=== PATIENT | male | born 1955 | race African-American/Black ===

== ENCOUNTER 2022-12-16 01:53 | Inpatient (IN) | payer OTHER ==
[2022-12-16 04:20] LABS: BASO % 0.6 % (0-2.0); EOS % 0.1 % (0-4.5); HEMATOCRIT 24.1 % (35.4-49); HEMOGLOBIN 8.1 GM/dL (11.7-16.9); LYMPH % 8.3 % (8-40); MCHC 33.5 g/dl (32.0-35.9); MEAN CELL VOLUME 89.6 fl (80-96); MEAN PLT VOLUME 6.8 fl (7.5-11.1); MONO % 11.3 % (3.8-10.2); NEUT % 79.7 % (42.8-82.8); PLATELET COUNT 425 10^3/uL (134-434); RBC 2.69 M/mm3 (4.00-5.60); RDW 16.7 % (11.9-15.9); WHITE BLOOD COUNT 15.9 K/mm3 (4.0-10.0)
[2022-12-16 04:35] LABS: INR 1.07 (0.83-1.09); PROTHROMBIN TIME (PATIENT) 12.4 SEC (9.7-13.0)
[2022-12-16 04:37] LABS: ACTIVATED PTT 27.4 SECONDS (25.2-36.5)
[2022-12-16 04:52] LABS: CHLORIDE 96 mmol/L (98-107); SODIUM 136 mmol/L (136-145)
[2022-12-16 04:54] LABS: CALCIUM 7.9 mg/dL (8.5-10.1)
[2022-12-16 04:55] LABS: ARTERIAL BLD GAS O2 SATURATION 97.6 % (95-98); ARTERIAL BLOOD GAS PO2 91.1 mmHg (80-100); ARTERIAL BLOOD GAS pH 7.517 (7.350-7.450)
[2022-12-16 04:55] LABS: ALBUMIN 1.8 g/dl (3.4-5.0); BLOOD UREA NITROGEN 17.2 mg/dL (7-18); CO2 32 mmol/L (21-32); GLUCOSE,RANDOM 114 mg/dL (74-106)
[2022-12-16 04:58] LABS: CREATININE 3.6 mg/dL (0.55-1.3); SGOT/AST 22 U/L (15-37); SGPT/ALT 13 U/L (13-61)
[2022-12-16 04:59] LABS: BILIRUBIN,TOTAL 0.4 mg/dL (0.2-1)
[2022-12-16 05:00] LABS: TOT PROT 6.8 g/dl (6.4-8.2)
[2022-12-16 05:01] LABS: ALK PHOS 70 U/L (45-117)
[2022-12-16 05:04] LABS: ANION GAP 8 MMOL/L (8-16); POTASSIUM 2.8 mmol/L (3.5-5.1)
[2022-12-16 07:50] LABS: CHLORIDE 98 mmol/L (98-107); SODIUM 137 mmol/L (136-145)
[2022-12-16 07:51] LABS: ARTERIAL BLD GAS O2 SATURATION 97.5 % (95-98); ARTERIAL BLOOD GAS BASE EXCESS 3.6 mmol/L (-2-2); ARTERIAL BLOOD GAS PO2 88.9 mmHg (80-100); ARTERIAL BLOOD GAS pH 7.501 (7.350-7.450)
[2022-12-16 07:51] LABS: CALCIUM 7.7 mg/dL (8.5-10.1)
[2022-12-16 07:52] LABS: BLOOD UREA NITROGEN 16.8 mg/dL (7-18); CO2 34 mmol/L (21-32); GLUCOSE,RANDOM 99 mg/dL (74-106)
[2022-12-16 07:55] LABS: CREATININE 3.6 mg/dL (0.55-1.3)
[2022-12-16 07:56] LABS: ANION GAP 5 MMOL/L (8-16); POTASSIUM 2.8 mmol/L (3.5-5.1)
[2022-12-16] MEDS ORDERED: POTASSIUM CHLORIDE ORAL LIQUID 20 MEQ/15 ML PO ONE (10:18)
[2022-12-16] MEDS ORDERED: MAGNESIUM SULF 50% (8.12 MEQ/2 ML-1 GM VIAL) IVPB ONE (10:18)
[2022-12-16] MEDS ORDERED: SODIUM CHLORIDE 250 ML IV PRN (10:28)
[2022-12-16] MEDS ORDERED: POTASSIUM CHLORIDE ORAL LIQUID 20 MEQ/15 ML ONE (10:45)
[2022-12-16] MEDS ORDERED: MAGNESIUM 1GM/D5W - 1 GM/100 ML IVPB IVPB ONE (10:45)
[2022-12-16 11:36] LABS: MAGNESIUM 2.1 mg/dL (1.8-2.4)
[2022-12-16 11:39] LABS: PHOSPHOROUS 2.1 mg/dL (2.5-4.9)
[2022-12-16] MEDS ORDERED: BISACODYL 10 MG SUPP.RECT RC PRN (13:37)
[2022-12-16] MEDS ORDERED: HEPARIN NA (PORCINE) 5,000 UNITS/ML 1ML VIAL ONE ×2 (13:40→22:45)
[2022-12-16] MEDS: HEPARIN NA (PORCINE) 5,000 UNITS/ML 1ML VIAL SQ SCH ×2 (13:47→23:44)
[2022-12-16] MEDS ORDERED: POLYETHYLENE GLYCOL (HEALTHYLAX) 3350 17 GM PACKET ONE (14:33)
[2022-12-16] MEDS ORDERED: MIDODRINE HCL 5 MG TABLET ONE ×2 (14:33→17:52)
[2022-12-16] MEDS: MIDODRINE HCL 5 MG TABLET PO SCH ×2 (14:43→18:04)
[2022-12-16] MEDS: POLYETHYLENE GLYCOL (HEALTHYLAX) 3350 17 GM PACKET PO SCH (14:43)
[2022-12-16] MEDS: AMINO ACIDS/PROTEIN HYDROLYS 30 ML LIQUID.PKT PO SCH (17:55)
[2022-12-16] MEDS: INSULIN SLIDING SCALE (NOVOLOG) 1 VIAL SQ SCH ×2 (17:55→23:44)
[2022-12-16] MEDS: CALCIUM ACETATE 667 MG CAPSULE (FP) PO SCH (17:55)
[2022-12-16] MEDS: VITAMIN B COMP W-C 1 EA TABLET (NEPHRO-VITE) PO SCH (17:55)
[2022-12-16] MEDS ORDERED: DIVALPROEX SODIUM 250 MG TABLET E.C. ONE (22:45)
[2022-12-16] MEDS: VALPROIC ACID 250 MG CAPSULE PO SCH (23:44)
[2022-12-17] MEDS: HEPARIN NA (PORCINE) 5,000 UNITS/ML 1ML VIAL SQ SCH ×3 (07:09→21:13)
[2022-12-17] MEDS: INSULIN SLIDING SCALE (NOVOLOG) 1 VIAL SQ SCH ×4 (08:08→21:14)
[2022-12-17 08:29] LABS: BASO % 0.7 % (0-2.0); EOS % 0.3 % (0-4.5); HEMATOCRIT 23.1 % (35.4-49); HEMOGLOBIN 7.3 GM/dL (11.7-16.9); LYMPH % 9.8 % (8-40); MCH 29.2 pg (25.7-33.7); MCHC 31.5 g/dl (32.0-35.9); MEAN CELL VOLUME 92.6 fl (80-96); MEAN PLT VOLUME 7.6 fl (7.5-11.1); MONO % 8.3 % (3.8-10.2); NEUT % 80.9 % (42.8-82.8); PLATELET COUNT 432 10^3/uL (134-434); RBC 2.49 M/mm3 (4.00-5.60); RDW 16.1 % (11.9-15.9); WHITE BLOOD COUNT 17.7 K/mm3 (4.0-10.0)
[2022-12-17 08:46] LABS: POTASSIUM 4.1 mmol/L (3.5-5.1)
[2022-12-17 08:51] LABS: ALBUMIN 1.7 g/dl (3.4-5.0); MAGNESIUM 2.4 mg/dL (1.8-2.4)
[2022-12-17 08:53] LABS: PHOSPHOROUS 2.6 mg/dL (2.5-4.9)
[2022-12-17 08:54] LABS: CREATININE 4.7 mg/dL (0.55-1.3)
[2022-12-17 08:55] LABS: BILIRUBIN,TOTAL 0.5 mg/dL (0.2-1); TOT PROT 6.4 g/dl (6.4-8.2)
[2022-12-17] MEDS: FERROUS SO4 325 MG TABLET (FP) PO SCH (09:51)
[2022-12-17] MEDS: FAMOTIDINE 10 MG TABLET PO SCH (09:52)
[2022-12-17] MEDS: POLYETHYLENE GLYCOL (HEALTHYLAX) 3350 17 GM PACKET PO SCH (09:52)
[2022-12-17] MEDS: MIDODRINE HCL 5 MG TABLET PO SCH ×3 (09:52→17:19)
[2022-12-17] MEDS: AMINO ACIDS/PROTEIN HYDROLYS 30 ML LIQUID.PKT PO SCH ×2 (09:52→16:40)
[2022-12-17] MEDS: CALCIUM ACETATE 667 MG CAPSULE (FP) PO SCH ×4 (09:52→16:40)
[2022-12-17] MEDS: VALPROIC ACID 250 MG CAPSULE PO SCH ×2 (09:52→21:14)
[2022-12-17] MEDS: SERTRALINE HCL 50 MG TABLET (FP) PO SCH (09:52)
[2022-12-17] MEDS: VITAMIN B COMP W-C 1 EA TABLET (NEPHRO-VITE) PO SCH (09:52)
[2022-12-17] MEDS: CLOPIDOGREL BISULFATE 75 MG TABLET (FP) PO SCH (09:52)
[2022-12-17] MEDS ORDERED: CLOPIDOGREL BISULFATE 75 MG TABLET (FP) ONE (09:55)
[2022-12-17] MEDS ORDERED: FAMOTIDINE 10 MG TABLET ONE (09:55)
[2022-12-17] MEDS ORDERED: MIDODRINE HCL 5 MG TABLET ONE (09:56)
[2022-12-17] MEDS ORDERED: SERTRALINE HCL 50 MG TABLET (FP) ONE (09:56)
[2022-12-17] MEDS ORDERED: PIPERACILLIN/TAZOB 2.25 GM 2.25 GM in DEXTROSE 5%-WATER - 50 ML IVPB SCH ×2 (12:15→12:30)
[2022-12-17] MEDS ORDERED: PIPERACILLIN/TAZOB 3.375 GM 3.375 GM in DEXTROSE 5%-WATER - 50 ML IVPB SCH (12:15)
[2022-12-17] MEDS: COLLAGENASE CLOSTRIDIUM HIST. 30 GRAMS TUBE TP SCH (12:46)
[2022-12-17] MEDS ORDERED: EPOETIN ALFA-EPBX 10,000 UNIT/ML VIAL IVPUSH ONE (14:30)
[2022-12-17 15:57] LABS: HEPATITIS B SURFACE AG MATERN NON-REACTIVE (NONREACTIVE)
[2022-12-17] MEDS: PIPERACILLIN/TAZOB 2.25 GM 2.25 GM in DEXTROSE 5%-WATER - 50 ML IVPB SCH ×2 (16:26→17:16)
[2022-12-18] MEDS: PIPERACILLIN/TAZOB 2.25 GM 2.25 GM in DEXTROSE 5%-WATER - 50 ML IVPB SCH ×3 (02:06→17:41)
[2022-12-18] MEDS: HEPARIN NA (PORCINE) 5,000 UNITS/ML 1ML VIAL SQ SCH ×3 (05:14→22:09)
[2022-12-18] MEDS: FERROUS SO4 325 MG TABLET (FP) PO SCH ×2 (05:33→06:02)
[2022-12-18] MEDS: INSULIN SLIDING SCALE (NOVOLOG) 1 VIAL SQ SCH ×4 (06:02→22:08)
[2022-12-18] MEDS: VALPROIC ACID 250 MG CAPSULE PO SCH ×2 (09:43→22:13)
[2022-12-18] MEDS: MIDODRINE HCL 5 MG TABLET PO SCH ×3 (09:43→17:40)
[2022-12-18] MEDS: VITAMIN B COMP W-C 1 EA TABLET (NEPHRO-VITE) PO SCH (09:43)
[2022-12-18] MEDS: CLOPIDOGREL BISULFATE 75 MG TABLET (FP) PO SCH (09:43)
[2022-12-18] MEDS: FAMOTIDINE 10 MG TABLET PO SCH (09:43)
[2022-12-18] MEDS: AMINO ACIDS/PROTEIN HYDROLYS 30 ML LIQUID.PKT PO SCH ×2 (09:43→17:41)
[2022-12-18] MEDS: POLYETHYLENE GLYCOL (HEALTHYLAX) 3350 17 GM PACKET PO SCH (09:43)
[2022-12-18] MEDS: CALCIUM ACETATE 667 MG CAPSULE (FP) PO SCH ×3 (09:43→17:41)
[2022-12-18] MEDS: SERTRALINE HCL 50 MG TABLET (FP) PO SCH (09:44)
[2022-12-18] MEDS: COLLAGENASE CLOSTRIDIUM HIST. 30 GRAMS TUBE TP SCH (09:44)
[2022-12-18 13:57] VITALS: BMI 21.5
[2022-12-18] MEDS ORDERED: INSULIN (NOVOLOG) ASPART 100 UNITS/ML 10ML VIAL ONE (17:53)
[2022-12-19] MEDS: PIPERACILLIN/TAZOB 2.25 GM 2.25 GM in DEXTROSE 5%-WATER - 50 ML IVPB SCH ×5 (02:36→21:00)
[2022-12-19] MEDS: INSULIN SLIDING SCALE (NOVOLOG) 1 VIAL SQ SCH ×4 (06:03→21:00)
[2022-12-19] MEDS: FERROUS SO4 325 MG TABLET (FP) PO SCH (06:04)
[2022-12-19] MEDS: HEPARIN NA (PORCINE) 5,000 UNITS/ML 1ML VIAL SQ SCH ×3 (06:04→21:00)
[2022-12-19] MEDS ORDERED: SODIUM CHLORIDE 250 ML IV PRN (10:42)
[2022-12-19] MEDS: MIDODRINE HCL 5 MG TABLET PO SCH ×5 (11:18→18:53)
[2022-12-19 11:19] LABS: BASO % 0.9 % (0-2.0); HEMATOCRIT 21.9 % (35.4-49); LYMPH % 10.6 % (8-40); MCH 29.5 pg (25.7-33.7); MCHC 32.1 g/dl (32.0-35.9); MEAN PLT VOLUME 6.7 fl (7.5-11.1); MONO % 10.2 % (3.8-10.2); NEUT % 77.3 % (42.8-82.8); PLATELET COUNT 367 10^3/uL (134-434); RBC 2.38 M/mm3 (4.00-5.60); RDW 16.1 % (11.9-15.9); WHITE BLOOD COUNT 15.7 K/mm3 (4.0-10.0)
[2022-12-19] MEDS: SERTRALINE HCL 50 MG TABLET (FP) PO SCH ×2 (11:19→11:51)
[2022-12-19] MEDS: CLOPIDOGREL BISULFATE 75 MG TABLET (FP) PO SCH ×2 (11:19→11:50)
[2022-12-19] MEDS: POLYETHYLENE GLYCOL (HEALTHYLAX) 3350 17 GM PACKET PO SCH (11:20)
[2022-12-19] MEDS: VITAMIN B COMP W-C 1 EA TABLET (NEPHRO-VITE) PO SCH (11:20)
[2022-12-19] MEDS: AMINO ACIDS/PROTEIN HYDROLYS 30 ML LIQUID.PKT PO SCH ×2 (11:21→17:04)
[2022-12-19] MEDS: VALPROIC ACID 250 MG CAPSULE PO SCH ×2 (11:21→21:00)
[2022-12-19] MEDS: FAMOTIDINE 10 MG TABLET PO SCH (11:21)
[2022-12-19] MEDS: CALCIUM ACETATE 667 MG CAPSULE (FP) PO SCH ×3 (11:21→17:05)
[2022-12-19] MEDS: COLLAGENASE CLOSTRIDIUM HIST. 30 GRAMS TUBE TP SCH (11:22)
[2022-12-19 11:37] LABS: POTASSIUM 3.7 mmol/L (3.5-5.1)
[2022-12-19 11:39] LABS: ALBUMIN 1.4 g/dl (3.4-5.0); BLOOD UREA NITROGEN 35.7 mg/dL (7-18); CALCIUM 8.2 mg/dL (8.5-10.1)
[2022-12-19 11:42] LABS: CREATININE 5.7 mg/dL (0.55-1.3)
[2022-12-19 11:44] LABS: BILIRUBIN,TOTAL 0.6 mg/dL (0.2-1); TOT PROT 6.1 g/dl (6.4-8.2)
[2022-12-19] MEDS ORDERED: oxyCODONE HCL 5 MG TABLET PO ONE (18:40)
[2022-12-20] MEDS: INSULIN SLIDING SCALE (NOVOLOG) 1 VIAL SQ SCH ×4 (06:37→21:19)
[2022-12-20] MEDS: HEPARIN NA (PORCINE) 5,000 UNITS/ML 1ML VIAL SQ SCH ×3 (06:37→21:01)
[2022-12-20] MEDS ORDERED: BISACODYL 10 MG SUPP.RECT RC PRN (07:04)
[2022-12-20] MEDS: FERROUS SO4 325 MG TABLET (FP) PO SCH (07:04)
[2022-12-20 10:30] LABS: BASO % 1.3 % (0-2.0); EOS % 1.2 % (0-4.5); HEMATOCRIT 21.7 % (35.4-49); HEMOGLOBIN 7.2 GM/dL (11.7-16.9); LYMPH % 10.8 % (8-40); MCH 30.1 pg (25.7-33.7); MCHC 33.3 g/dl (32.0-35.9); MEAN CELL VOLUME 90.4 fl (80-96); MEAN PLT VOLUME 7.1 fl (7.5-11.1); MONO % 10.7 % (3.8-10.2); PLATELET COUNT 386 10^3/uL (134-434); RDW 15.8 % (11.9-15.9); WHITE BLOOD COUNT 17.9 K/mm3 (4.0-10.0)
[2022-12-20 10:52] LABS: POTASSIUM 3.9 mmol/L (3.5-5.1)
[2022-12-20 10:53] LABS: CALCIUM 8.1 mg/dL (8.5-10.1)
[2022-12-20 10:54] LABS: ALBUMIN 1.4 g/dl (3.4-5.0); BLOOD UREA NITROGEN 40.6 mg/dL (7-18)
[2022-12-20 10:57] LABS: CREATININE 6.6 mg/dL (0.55-1.3)
[2022-12-20 10:59] LABS: BILIRUBIN,TOTAL 0.4 mg/dL (0.2-1); TOT PROT 6.2 g/dl (6.4-8.2)
[2022-12-20] MEDS: MIDODRINE HCL 5 MG TABLET PO SCH ×3 (11:57→18:11)
[2022-12-20] MEDS: AMINO ACIDS/PROTEIN HYDROLYS 30 ML LIQUID.PKT PO SCH ×2 (12:02→18:11)
[2022-12-20] MEDS: CALCIUM ACETATE 667 MG CAPSULE (FP) PO SCH ×3 (12:02→18:11)
[2022-12-20] MEDS: SERTRALINE HCL 50 MG TABLET (FP) PO SCH (12:03)
[2022-12-20] MEDS: FAMOTIDINE 10 MG TABLET PO SCH (12:03)
[2022-12-20] MEDS: VITAMIN B COMP W-C 1 EA TABLET (NEPHRO-VITE) PO SCH (12:03)
[2022-12-20] MEDS: COLLAGENASE CLOSTRIDIUM HIST. 30 GRAMS TUBE TP SCH (12:06)
[2022-12-20] MEDS: PIPERACILLIN/TAZOB 2.25 GM 2.25 GM in DEXTROSE 5%-WATER - 50 ML IVPB SCH (12:06)
[2022-12-20] MEDS: CLOPIDOGREL BISULFATE 75 MG TABLET (FP) PO SCH (12:07)
[2022-12-20] MEDS: VALPROIC ACID 250 MG CAPSULE PO SCH ×2 (12:07→21:12)
[2022-12-20] MEDS: POLYETHYLENE GLYCOL (HEALTHYLAX) 3350 17 GM PACKET PO SCH (12:07)
[2022-12-20] MEDS ORDERED: AMOX TR/POT CLAV 500MG/125MG TABLETS (FP) PO SCH (17:30)
[2022-12-21] MEDS: HEPARIN NA (PORCINE) 5,000 UNITS/ML 1ML VIAL SQ SCH ×2 (05:24→13:53)
[2022-12-21] MEDS: INSULIN SLIDING SCALE (NOVOLOG) 1 VIAL SQ SCH ×2 (06:48→12:15)
[2022-12-21] MEDS ORDERED: FERROUS SO4 325 MG TABLET (FP) PO SCH (07:00)
[2022-12-21] MEDS ORDERED: oxyCODONE HCL 5 MG TABLET PO ONE (08:40)
[2022-12-21] MEDS: CALCIUM ACETATE 667 MG CAPSULE (FP) PO SCH ×3 (08:56→12:16)
[2022-12-21] MEDS: AMINO ACIDS/PROTEIN HYDROLYS 30 ML LIQUID.PKT PO SCH (08:56)
[2022-12-21 10:32] LABS: BASO % 1.1 % (0-2.0); EOS % 1.2 % (0-4.5); HEMATOCRIT 24.8 % (35.4-49); HEMOGLOBIN 7.7 GM/dL (11.7-16.9); LYMPH % 10.5 % (8-40); MCH 29.3 pg (25.7-33.7); MCHC 30.9 g/dl (32.0-35.9); MEAN CELL VOLUME 94.8 fl (80-96); MEAN PLT VOLUME 6.9 fl (7.5-11.1); MONO % 9.1 % (3.8-10.2); NEUT % 78.1 % (42.8-82.8); PLATELET COUNT 348 10^3/uL (134-434); RBC 2.62 M/mm3 (4.00-5.60); RDW 16.7 % (11.9-15.9); WHITE BLOOD COUNT 13.9 K/mm3 (4.0-10.0)
[2022-12-21 10:44] VITALS: RESP 18; TEMP 99
[2022-12-21 10:50] LABS: POTASSIUM 3.3 mmol/L (3.5-5.1)
[2022-12-21 10:52] LABS: ALBUMIN 1.6 g/dl (3.4-5.0); BLOOD UREA NITROGEN 22.9 mg/dL (7-18); CALCIUM 8.3 mg/dL (8.5-10.1); MAGNESIUM 2.3 mg/dL (1.8-2.4)
[2022-12-21 10:55] LABS: PHOSPHOROUS 2.7 mg/dL (2.5-4.9)
[2022-12-21 10:56] LABS: CREATININE 4.6 mg/dL (0.55-1.3)
[2022-12-21 10:57] LABS: BILIRUBIN,TOTAL 0.4 mg/dL (0.2-1); TOT PROT 6.6 g/dl (6.4-8.2)
[2022-12-21] MEDS: VALPROIC ACID 250 MG CAPSULE PO SCH (11:13)
[2022-12-21] MEDS: FAMOTIDINE 10 MG TABLET PO SCH (11:13)
[2022-12-21] MEDS: VITAMIN B COMP W-C 1 EA TABLET (NEPHRO-VITE) PO SCH (11:14)
[2022-12-21] MEDS: CLOPIDOGREL BISULFATE 75 MG TABLET (FP) PO SCH (11:14)
[2022-12-21] MEDS: SERTRALINE HCL 50 MG TABLET (FP) PO SCH (11:14)
[2022-12-21] MEDS: POLYETHYLENE GLYCOL (HEALTHYLAX) 3350 17 GM PACKET PO SCH (11:14)
[2022-12-21] MEDS: MIDODRINE HCL 5 MG TABLET PO SCH ×2 (11:14→13:53)
[2022-12-21] MEDS: COLLAGENASE CLOSTRIDIUM HIST. 30 GRAMS TUBE TP SCH (13:52)
[2022-12-21 15:42] VITALS: BP 97/54; PULSE 98
== END 2022-12-21 15:50 | DRG 592 ==
LOC: JER 01:53 → JERBED 06:07 → J2W 12-17 10:07 → J5S 12-20 06:26
PROVIDERS: ADMIT Internal Medicine
DX: L89.150 Pressure ulcer of sacral region, unstageable (principal); G93.41 Metabolic encephalopathy; N18.6 End stage renal disease; I13.2 Hypertensive heart and chronic kidney disease with heart failure and with stage 5 chronic kidney disease, or end stage renal disease; I24.8 Other forms of acute ischemic heart disease; J98.11 Atelectasis; I48.91 Unspecified atrial fibrillation; D64.9 Anemia, unspecified; E11.22 Type 2 diabetes mellitus with diabetic chronic kidney disease; Z99.2 Dependence on renal dialysis; E78.5 Hyperlipidemia, unspecified; E87.6 Hypokalemia; F03.90 Unspecified dementia, unspecified severity, without behavioral disturbance, psychotic disturbance, mood disturbance, and anxiety; F32.A Depression, unspecified; R94.31 Abnormal electrocardiogram [ECG] [EKG]; F41.9 Anxiety disorder, unspecified; I50.9 Heart failure, unspecified; I95.89 Other hypotension; I44.4 Left anterior fascicular block
CPT/HCPCS: 0241U-QW; 36415; 36600; 70450-TC; 70551-TC; 71045-TC-FY; 80048; 80053; 82272; 82803; 82962; 83735; 84100; 84443; 84484; 85025; 85610; 85730; 86704; 86707; 86803; 87040; 87070; 87205; 87340; 87517; 87522; 87635; 93005; 93010; 99285-25; J1644; Q5106

== ENCOUNTER 2022-12-29 00:41 | Inpatient (IN) | payer OTHER ==
[2022-12-29 03:56] LABS: BASO % 0.6 % (0-2.0); EOS % 0.4 % (0-4.5); HEMATOCRIT 19.6 % (35.4-49); LYMPH % 11.2 % (8-40); MCH 29.7 pg (25.7-33.7); MCHC 32.4 g/dl (32.0-35.9); MEAN CELL VOLUME 91.9 fl (80-96); MEAN PLT VOLUME 6.2 fl (7.5-11.1); MONO % 11.5 % (3.8-10.2); NEUT % 76.3 % (42.8-82.8); PLATELET COUNT 338 10^3/uL (134-434); RBC 2.13 M/mm3 (4.00-5.60); WHITE BLOOD COUNT 11.4 K/mm3 (4.0-10.0)
[2022-12-29 04:04] LABS: INR 1.05 (0.83-1.09); PROTHROMBIN TIME (PATIENT) 12.2 SEC (9.7-13.0)
[2022-12-29 04:06] LABS: ACTIVATED PTT 26.8 SECONDS (25.2-36.5)
[2022-12-29 04:26] LABS: HEMOGLOBIN 6.3 GM/dL (11.7-16.9)
[2022-12-29 04:32] LABS: CHLORIDE 104 mmol/L (98-107); POTASSIUM 3.5 mmol/L (3.5-5.1); SODIUM 141 mmol/L (136-145)
[2022-12-29 04:35] LABS: ALBUMIN 1.6 g/dl (3.4-5.0); ANION GAP 10 mmol/L (4-13); CALCIUM 8.2 mg/dL (8.5-10.1); CO2 27 mmol/L (21-32); GLUCOSE,RANDOM 50 mg/dL (74-106); LIPASE 38 U/L (73-393); MAGNESIUM 1.8 mg/dL (1.8-2.4)
[2022-12-29 04:37] LABS: PHOSPHOROUS 2.8 mg/dL (2.5-4.9)
[2022-12-29 04:38] LABS: CREATININE 5.7 mg/dL (0.55-1.3); SGOT/AST 25 U/L (15-37); SGPT/ALT < 6 U/L (13-61)
[2022-12-29 04:39] LABS: BILIRUBIN,TOTAL 0.5 mg/dL (0.2-1); TOT PROT 6.3 g/dl (6.4-8.2)
[2022-12-29 04:40] LABS: ALK PHOS 65 U/L (45-117)
[2022-12-29] MEDS ORDERED: DEXTROSE 50%-WATER 25 GM/50 ML DISP.SYRIN ONE (04:41)
[2022-12-29] MEDS ORDERED: DEXTROSE 50%-WATER - 25 GM/50 ML VIAL IVPUSH ONE (04:41)
[2022-12-29] MEDS ORDERED: traMADol HCL 50 MG TABLET PO PRN (09:01)
[2022-12-29] MEDS ORDERED: CEFAZOLIN IV ONE (09:15)
[2022-12-29] MEDS ORDERED: [UNRECOGNIZED DRUG - OTHER] IV ONE (09:15)
[2022-12-29] MEDS ORDERED: PATIENT'S OWN MEDICATION (NON-FORMULARY) (Midodrine Hcl [Midodrine Hcl] 10 MG Tablet) PO SCH (09:15)
[2022-12-29] MEDS ORDERED: MIDODRINE HCL 5 MG TABLET ONE (09:20)
[2022-12-29] MEDS: CLOPIDOGREL BISULFATE 75 MG TABLET (FP) PO SCH (09:40)
[2022-12-29] MEDS: PANTOPRAZOLE 40 MG TABLET PO SCH (09:40)
[2022-12-29] MEDS: SERTRALINE HCL 50 MG TABLET (FP) PO SCH (09:40)
[2022-12-29] MEDS ORDERED: FAMOTIDINE 20 MG TABLET PO SCH (10:00)
[2022-12-29] MEDS: VITAMIN B COMP W-C 1 EA TABLET (NEPHRO-VITE) PO SCH (10:16)
[2022-12-29] MEDS ORDERED: PIPERACILLIN/TAZOB 2.25 GM 2.25 GM/50 ML BAG IVPB ONE (10:31)
[2022-12-29] MEDS: PIPERACILLIN/TAZOB 2.25 GM 2.25 GM in DEXTROSE 5%-WATER - 50 ML IVPB SCH (10:42)
[2022-12-29 10:53] LABS: IRON SERUM 29 ug/dL (50-175)
[2022-12-29 10:54] LABS: TOTAL IRON BINDING CAPACITY 80 ug/dL (250-450)
[2022-12-29] MEDS ORDERED: INSULIN SLIDING SCALE (NOVOLOG) 1 VIAL SQ SCH (11:00)
[2022-12-29] MEDS: VALPROIC ACID 250 MG CAPSULE PO SCH ×2 (11:49→22:40)
[2022-12-29 12:12] LABS: RETICULOCYTES 2.41 % (0.5-1.5)
[2022-12-29] MEDS: CALCIUM ACETATE 667 MG CAPSULE (FP) PO SCH ×2 (13:22→18:01)
[2022-12-29] MEDS ORDERED: HEPARIN NA (PORCINE) 5,000 UNITS/ML 1ML VIAL ONE (13:23)
[2022-12-29] MEDS: HEPARIN NA (PORCINE) 5,000 UNITS/ML 1ML VIAL SQ SCH ×2 (13:29→22:41)
[2022-12-29] MEDS: MIDODRINE HCL 5 MG TABLET PO SCH ×2 (15:42→22:41)
[2022-12-29] MEDS ORDERED: DEXTROSE 50%-WATER 25 GM/50 ML DISP.SYRIN IVPUSH ONE (16:51)
[2022-12-30] MEDS: PIPERACILLIN/TAZOB 2.25 GM 2.25 GM in DEXTROSE 5%-WATER - 50 ML IVPB SCH ×3 (03:00→19:05)
[2022-12-30] MEDS: HEPARIN NA (PORCINE) 5,000 UNITS/ML 1ML VIAL SQ SCH ×4 (05:03→21:50)
[2022-12-30] MEDS: MIDODRINE HCL 5 MG TABLET PO SCH ×3 (06:02→21:46)
[2022-12-30] MEDS: FERROUS SO4 325 MG TABLET (FP) PO SCH (06:10)
[2022-12-30] MEDS ORDERED: EPOETIN ALFA-EPBX 4,000 UNIT/ML VIAL SQ ONE (09:00)
[2022-12-30] MEDS ORDERED: SODIUM CHLORIDE 250 ML IV PRN (09:00)
[2022-12-30 11:22] LABS: BASO % 0.7 % (0-2.0); EOS % 0.9 % (0-4.5); LYMPH % 10.2 % (8-40); MCH 30.2 pg (25.7-33.7); MCHC 31.9 g/dl (32.0-35.9); MEAN CELL VOLUME 94.7 fl (80-96); MEAN PLT VOLUME 7.2 fl (7.5-11.1); MONO % 11.8 % (3.8-10.2); NEUT % 76.4 % (42.8-82.8); PLATELET COUNT 359 10^3/uL (134-434); RBC 2.22 M/mm3 (4.00-5.60); RDW 18.1 % (11.9-15.9); WHITE BLOOD COUNT 8.7 K/mm3 (4.0-10.0)
[2022-12-30 11:34] LABS: CHLORIDE 101 mmol/L (98-107); POTASSIUM 3.2 mmol/L (3.5-5.1); SODIUM 140 mmol/L (136-145)
[2022-12-30 11:43] LABS: ALBUMIN 1.6 g/dl (3.4-5.0)
[2022-12-30 11:44] LABS: CALCIUM 8.3 mg/dL (8.5-10.1)
[2022-12-30 11:45] LABS: ANION GAP 11 mmol/L (4-13); CO2 27 mmol/L (21-32); SGPT/ALT < 6 U/L (13-61); TOT PROT 6.5 g/dl (6.4-8.2)
[2022-12-30 11:46] LABS: ALK PHOS 65 U/L (45-117); BILIRUBIN,TOTAL 0.5 mg/dL (0.2-1); HEMOGLOBIN 6.7 GM/dL (11.7-16.9); PHOSPHOROUS 2.7 mg/dL (2.5-4.9)
[2022-12-30 11:48] LABS: CREATININE 6.8 mg/dL (0.55-1.3); SGOT/AST 25 U/L (15-37)
[2022-12-30 11:50] LABS: GLUCOSE,RANDOM 45 mg/dL (74-106)
[2022-12-30] MEDS: VALPROIC ACID 250 MG CAPSULE PO SCH ×2 (12:53→21:46)
[2022-12-30] MEDS: CALCIUM ACETATE 667 MG CAPSULE (FP) PO SCH ×2 (12:53→18:57)
[2022-12-30] MEDS: VITAMIN B COMP W-C 1 EA TABLET (NEPHRO-VITE) PO SCH (12:53)
[2022-12-30] MEDS: FAMOTIDINE 10 MG TABLET PO SCH (12:53)
[2022-12-30] MEDS: SERTRALINE HCL 50 MG TABLET (FP) PO SCH (12:54)
[2022-12-30] MEDS: PANTOPRAZOLE 40 MG TABLET PO SCH (12:54)
[2022-12-30] MEDS: CLOPIDOGREL BISULFATE 75 MG TABLET (FP) PO SCH (12:54)
[2022-12-30] MEDS: COLLAGENASE CLOSTRIDIUM HIST. 30 GRAMS TUBE TP SCH (17:22)
[2022-12-30] MEDS: SODIUM HYPOCHLORITE 0.25%- 473 ML BULK BOTTLE TP SCH (17:22)
[2022-12-30] MEDS: DEXTROSE 5%-NORMAL SALINE 1,000 ML IV SCH (19:02)
[2022-12-30] MEDS: AMINO ACIDS 4.25%/D5W 1,000 ML IV SCH (21:30)
[2022-12-31] MEDS: PIPERACILLIN/TAZOB 2.25 GM 2.25 GM in DEXTROSE 5%-WATER - 50 ML IVPB SCH ×3 (01:42→19:05)
[2022-12-31] MEDS: AMINO ACIDS 4.25%/D5W 1,000 ML IV SCH ×2 (05:07→16:27)
[2022-12-31] MEDS: HEPARIN NA (PORCINE) 5,000 UNITS/ML 1ML VIAL SQ SCH ×4 (05:56→23:28)
[2022-12-31] MEDS: MIDODRINE HCL 5 MG TABLET PO SCH ×3 (05:57→23:27)
[2022-12-31] MEDS: FERROUS SO4 325 MG TABLET (FP) PO SCH (06:03)
[2022-12-31] MEDS ORDERED: FENTANYL CITRATE/PF 50 MCG/ML VIAL ONE (07:33)
[2022-12-31] MEDS ORDERED: LIDOCAINE HCL/PF 2% SDV 5ML VIAL ONE (07:33)
[2022-12-31] MEDS ORDERED: PROPOFOL 40 ML ONE (07:34)
[2022-12-31] MEDS ORDERED: MIDAZOLAM HCL 2 MG/2 ML SINGLE DOSE VIAL ONE (07:34)
[2022-12-31] MEDS ORDERED: SODIUM CHLORIDE 0.9% P/F 10 ML VIAL IJ ONE (08:33)
[2022-12-31] MEDS ORDERED: PIPERACILLIN/TAZOBACTAM 2.25 GM VIAL IVPB ONE (08:35)
[2022-12-31] MEDS ORDERED: PHENYLEPHRINE HCL 10 MG/1 ML SINGLE DOSE VIAL ONE (08:58)
[2022-12-31] MEDS ORDERED: ONDANSETRON 4 MG/2 ML VIAL IVPUSH PRN ×2 (09:23→11:35)
[2022-12-31] MEDS ORDERED: SODIUM CHLORIDE 1,000 ML IV SCH ×2 (09:30→11:35)
[2022-12-31] MEDS ORDERED: MAGNESIUM HYDROX 2400MG/30ML ORAL SUSPENSION 30 ML CUP PO PRN (11:35)
[2022-12-31] MEDS ORDERED: EPOETIN ALFA-EPBX 4,000 UNIT/ML VIAL SQ ONE (11:35)
[2022-12-31] MEDS ORDERED: traMADol HCL 50 MG TABLET PO PRN (11:35)
[2022-12-31] MEDS ORDERED: LORazepam 0.5 MG TABLET PO PRN (11:35)
[2022-12-31] MEDS ORDERED: BISACODYL 10 MG SUPP.RECT RC PRN (11:35)
[2022-12-31] MEDS: CALCIUM ACETATE 667 MG CAPSULE (FP) PO SCH ×3 (13:12→18:39)
[2022-12-31 13:27] LABS: BASO % 0.6 % (0-2.0); EOS % 0.9 % (0-4.5); HEMATOCRIT 30.2 % (35.4-49); HEMOGLOBIN 9.6 GM/dL (11.7-16.9); LYMPH % 16.7 % (8-40); MCH 27.2 pg (25.7-33.7); MCHC 31.8 g/dl (32.0-35.9); MEAN PLT VOLUME 6.8 fl (7.5-11.1); MONO % 13.5 % (3.8-10.2); NEUT % 68.3 % (42.8-82.8); PLATELET COUNT 292 10^3/uL (134-434); RBC 3.53 M/mm3 (4.00-5.60); RDW 17.3 % (11.9-15.9); WHITE BLOOD COUNT 11.2 K/mm3 (4.0-10.0)
[2022-12-31 13:31] LABS: MEAN CELL VOLUME 85.6 fl (80-96)
[2022-12-31 13:46] LABS: POTASSIUM 3.6 mmol/L (3.5-5.1)
[2022-12-31 13:51] LABS: BLOOD UREA NITROGEN 41.4 mg/dL (7-18); CALCIUM 7.9 mg/dL (8.5-10.1)
[2022-12-31 13:55] LABS: CREATININE 6.8 mg/dL (0.55-1.3)
[2022-12-31] MEDS: DEXTROSE 5%-NORMAL SALINE 1,000 ML IV SCH ×2 (15:49→16:04)
[2022-12-31] MEDS ORDERED: AMINO ACIDS 4.25%/D5W 1,000 ML IV SCH (16:00)
[2022-12-31] MEDS: COLLAGENASE CLOSTRIDIUM HIST. 30 GRAMS TUBE TP SCH (16:06)
[2022-12-31] MEDS: SERTRALINE HCL 50 MG TABLET (FP) PO SCH (16:06)
[2022-12-31] MEDS: PANTOPRAZOLE 40 MG TABLET PO SCH (16:06)
[2022-12-31] MEDS: VALPROIC ACID 250 MG CAPSULE PO SCH ×2 (16:07→23:27)
[2022-12-31] MEDS: CLOPIDOGREL BISULFATE 75 MG TABLET (FP) PO SCH (16:07)
[2022-12-31] MEDS: VITAMIN B COMP W-C 1 EA TABLET (NEPHRO-VITE) PO SCH (16:07)
[2022-12-31] MEDS: SODIUM HYPOCHLORITE 0.25%- 473 ML BULK BOTTLE TP SCH (16:08)
[2022-12-31] MEDS: FAMOTIDINE 10 MG TABLET PO SCH (16:08)
[2022-12-31] MEDS: AMINO ACIDS/PROTEIN HYDROLYS 30 ML LIQUID.PKT PO SCH (18:39)
[2023-01-01] MEDS: PIPERACILLIN/TAZOB 2.25 GM 2.25 GM in DEXTROSE 5%-WATER - 50 ML IVPB SCH ×2 (02:55→17:20)
[2023-01-01] MEDS: DEXTROSE 5%-NORMAL SALINE 1,000 ML IV SCH (07:18)
[2023-01-01] MEDS ORDERED: PANTOPRAZOLE 40 MG TABLET PO SCH (10:00)
[2023-01-01] MEDS ORDERED: SODIUM CHLORIDE 250 ML IV PRN (10:59)
[2023-01-01] MEDS ORDERED: EPOETIN ALFA-EPBX 4,000 UNIT/ML VIAL SQ ONE (11:00)
[2023-01-01 12:37] LABS: CHOLESTEROL 107 mg/dL (50-200)
[2023-01-01 12:38] LABS: LDL CHOLESTEROL (ONLY SJRH) 60 mg/dL (5-100)
[2023-01-01 12:39] LABS: HDL CHOLESTEROL 21 mg/dL (40-60)
[2023-01-01] MEDS: FAMOTIDINE 10 MG TABLET PO SCH (14:29)
[2023-01-01] MEDS: MIDODRINE HCL 5 MG TABLET PO SCH ×2 (14:30→22:30)
[2023-01-01] MEDS: VITAMIN B COMP W-C 1 EA TABLET (NEPHRO-VITE) PO SCH (14:30)
[2023-01-01] MEDS: CLOPIDOGREL BISULFATE 75 MG TABLET (FP) PO SCH (14:31)
[2023-01-01] MEDS: SERTRALINE HCL 50 MG TABLET (FP) PO SCH (14:31)
[2023-01-01] MEDS: HEPARIN NA (PORCINE) 5,000 UNITS/ML 1ML VIAL SQ SCH ×2 (14:32→22:30)
[2023-01-01] MEDS: VALPROIC ACID 250 MG CAPSULE PO SCH ×2 (16:16→22:30)
[2023-01-01] MEDS: POLYETHYLENE GLYCOL (HEALTHYLAX) 3350 17 GM PACKET PO SCH (16:17)
[2023-01-01] MEDS: CALCIUM ACETATE 667 MG CAPSULE (FP) PO SCH ×2 (17:22→18:16)
[2023-01-01] MEDS: AMINO ACIDS/PROTEIN HYDROLYS 30 ML LIQUID.PKT PO SCH (17:23)
[2023-01-01] MEDS: AMINO ACIDS 4.25%/D5W 1,000 ML IV SCH ×2 (17:52→22:48)
[2023-01-01] MEDS: FERROUS SO4 325 MG TABLET (FP) PO SCH (18:15)
[2023-01-02] MEDS: PIPERACILLIN/TAZOB 2.25 GM 2.25 GM in DEXTROSE 5%-WATER - 50 ML IVPB SCH ×8 (02:08→17:38)
[2023-01-02] MEDS ORDERED: ACETAMINOPHEN 325 MG TABLET (FP) PO ONE (04:39)
[2023-01-02] MEDS: AMINO ACIDS 4.25%/D5W 1,000 ML IV SCH ×4 (04:44→15:08)
[2023-01-02] MEDS: FERROUS SO4 325 MG TABLET (FP) PO SCH (06:18)
[2023-01-02] MEDS: MIDODRINE HCL 5 MG TABLET PO SCH ×5 (06:18→22:26)
[2023-01-02] MEDS: HEPARIN NA (PORCINE) 5,000 UNITS/ML 1ML VIAL SQ SCH ×4 (06:19→22:26)
[2023-01-02] MEDS: AMINO ACIDS/PROTEIN HYDROLYS 30 ML LIQUID.PKT PO SCH ×3 (07:32→17:37)
[2023-01-02] MEDS: CALCIUM ACETATE 667 MG CAPSULE (FP) PO SCH ×4 (07:33→17:37)
[2023-01-02] MEDS: VITAMIN B COMP W-C 1 EA TABLET (NEPHRO-VITE) PO SCH (09:52)
[2023-01-02] MEDS: SERTRALINE HCL 50 MG TABLET (FP) PO SCH (09:52)
[2023-01-02] MEDS: VALPROIC ACID 250 MG CAPSULE PO SCH ×2 (09:52→22:26)
[2023-01-02] MEDS: FAMOTIDINE 10 MG TABLET PO SCH (09:52)
[2023-01-02] MEDS: CLOPIDOGREL BISULFATE 75 MG TABLET (FP) PO SCH (09:52)
[2023-01-02] MEDS: POLYETHYLENE GLYCOL (HEALTHYLAX) 3350 17 GM PACKET PO SCH (09:53)
[2023-01-03] MEDS: PIPERACILLIN/TAZOB 2.25 GM 2.25 GM in DEXTROSE 5%-WATER - 50 ML IVPB SCH ×2 (02:02→11:24)
[2023-01-03] MEDS: AMINO ACIDS 4.25%/D5W 1,000 ML IV SCH ×2 (05:33→18:00)
[2023-01-03] MEDS: HEPARIN NA (PORCINE) 5,000 UNITS/ML 1ML VIAL SQ SCH ×3 (06:20→21:48)
[2023-01-03] MEDS: MIDODRINE HCL 5 MG TABLET PO SCH ×3 (06:20→21:55)
[2023-01-03] MEDS: FERROUS SO4 325 MG TABLET (FP) PO SCH (06:21)
[2023-01-03] MEDS: AMINO ACIDS/PROTEIN HYDROLYS 30 ML LIQUID.PKT PO SCH ×2 (09:07→18:00)
[2023-01-03] MEDS: CALCIUM ACETATE 667 MG CAPSULE (FP) PO SCH ×3 (09:07→17:59)
[2023-01-03] MEDS: VITAMIN B COMP W-C 1 EA TABLET (NEPHRO-VITE) PO SCH (11:24)
[2023-01-03] MEDS: CLOPIDOGREL BISULFATE 75 MG TABLET (FP) PO SCH (11:24)
[2023-01-03] MEDS: VALPROIC ACID 250 MG CAPSULE PO SCH ×2 (11:25→21:50)
[2023-01-03] MEDS: SERTRALINE HCL 50 MG TABLET (FP) PO SCH (11:25)
[2023-01-03] MEDS: FAMOTIDINE 10 MG TABLET PO SCH (11:25)
[2023-01-03] MEDS: POLYETHYLENE GLYCOL (HEALTHYLAX) 3350 17 GM PACKET PO SCH (11:30)
[2023-01-03] MEDS: DAPTOMYCIN 300 MG in SODIUM CHLORIDE 50 ML IVPB SCH (18:46)
[2023-01-03] MEDS: ERTAPENEM SODIUM 0.5 GM in SODIUM CHLORIDE 50 ML IVPB SCH (19:10)
[2023-01-04] MEDS: HEPARIN NA (PORCINE) 5,000 UNITS/ML 1ML VIAL SQ SCH ×4 (05:50→22:34)
[2023-01-04] MEDS: AMINO ACIDS 4.25%/D5W 1,000 ML IV SCH (05:50)
[2023-01-04] MEDS: MIDODRINE HCL 5 MG TABLET PO SCH ×4 (05:51→22:34)
[2023-01-04] MEDS: FERROUS SO4 325 MG TABLET (FP) PO SCH (06:06)
[2023-01-04] MEDS ORDERED: SODIUM CHLORIDE 250 ML IV PRN (07:47)
[2023-01-04] MEDS ORDERED: EPOETIN ALFA-EPBX 4,000 UNIT/ML VIAL IVPUSH ONE (09:00)
[2023-01-04 10:10] LABS: BASO % 0.7 % (0-2.0); HEMATOCRIT 24.5 % (35.4-49); HEMOGLOBIN 8.3 GM/dL (11.7-16.9); LYMPH % 16.6 % (8-40); MCH 28.2 pg (25.7-33.7); MCHC 33.7 g/dl (32.0-35.9); MEAN CELL VOLUME 83.6 fl (80-96); MEAN PLT VOLUME 6.7 fl (7.5-11.1); MONO % 17.9 % (3.8-10.2); NEUT % 62.8 % (42.8-82.8); PLATELET COUNT 287 10^3/uL (134-434); RBC 2.93 M/mm3 (4.00-5.60)
[2023-01-04 10:30] LABS: CHLORIDE 93 mmol/L (98-107); SODIUM 126 mmol/L (136-145)
[2023-01-04] MEDS: AMINO ACIDS/PROTEIN HYDROLYS 30 ML LIQUID.PKT PO SCH ×2 (10:35→17:54)
[2023-01-04] MEDS: CALCIUM ACETATE 667 MG CAPSULE (FP) PO SCH ×2 (10:35→12:35)
[2023-01-04 10:36] LABS: MAGNESIUM 1.7 mg/dL (1.8-2.4)
[2023-01-04 10:37] LABS: CALCIUM 8.1 mg/dL (8.5-10.1)
[2023-01-04 10:38] LABS: ALBUMIN 1.4 g/dl (3.4-5.0); BLOOD UREA NITROGEN 60.9 mg/dL (7-18); CO2 20 mmol/L (21-32); GLUCOSE,RANDOM 94 mg/dL (74-106)
[2023-01-04 10:39] LABS: CREATININE 4.8 mg/dL (0.55-1.3); SGOT/AST 26 U/L (15-37); SGPT/ALT < 6 U/L (13-61)
[2023-01-04 10:40] LABS: BILIRUBIN,TOTAL 0.4 mg/dL (0.2-1); TOT PROT 5.3 g/dl (6.4-8.2)
[2023-01-04 10:41] LABS: ALK PHOS 46 U/L (45-117)
[2023-01-04 10:45] LABS: ANION GAP 13 mmol/L (4-13); PHOSPHOROUS 0.6 mg/dL (2.5-4.9); POTASSIUM 2.7 mmol/L (3.5-5.1)
[2023-01-04] MEDS ORDERED: POTASSIUM CHLORIDE TABS 10 MEQ TABLET.ER (FP) PO SCH (11:00)
[2023-01-04] MEDS ORDERED: POTASSIUM CHLORIDE TABS 20 MEQ TABLET.ER (FP) PO SCH (11:20)
[2023-01-04] MEDS: POLYETHYLENE GLYCOL (HEALTHYLAX) 3350 17 GM PACKET PO SCH (11:41)
[2023-01-04] MEDS: FAMOTIDINE 10 MG TABLET PO SCH (11:41)
[2023-01-04] MEDS: VITAMIN B COMP W-C 1 EA TABLET (NEPHRO-VITE) PO SCH (11:42)
[2023-01-04] MEDS: VALPROIC ACID 250 MG CAPSULE PO SCH ×3 (11:42→22:34)
[2023-01-04] MEDS: ERTAPENEM SODIUM 0.5 GM in SODIUM CHLORIDE 50 ML IVPB SCH (12:35)
[2023-01-04] MEDS: SERTRALINE HCL 50 MG TABLET (FP) PO SCH (12:36)
[2023-01-04] MEDS: CLOPIDOGREL BISULFATE 75 MG TABLET (FP) PO SCH (12:36)
[2023-01-04 15:01] VITALS: BMI 22.3
[2023-01-04] MEDS ORDERED: POTASSIUM CHLORIDE TABS 20 MEQ TABLET.ER (FP) PO ONE (15:08)
[2023-01-04] MEDS ORDERED: POTASSIUM CHLORIDE ORAL LIQUID 20 MEQ/15 ML PO ONE (15:09)
[2023-01-04] MEDS: THIAMINE HCL 200 MG/2 ML VIAL IVPB SCH (15:50)
[2023-01-04] MEDS ORDERED: MAGNESIUM 1GM/D5W 100ML - 100 ML IVPB IVPB ONE (15:51)
[2023-01-04] MEDS: CALCITRIOL 0.25 MCG CAPSULE (FP) PO SCH (15:51)
[2023-01-04] MEDS: DAPTOMYCIN 300 MG in SODIUM CHLORIDE 50 ML IVPB SCH (16:55)
[2023-01-04] MEDS ORDERED: POTASSIUM CHLORIDE 20 MEQ in AMINO ACIDS 4.25%/D5W 1,000 ML IV SCH (17:00)
[2023-01-05] MEDS: FERROUS SO4 325 MG TABLET (FP) PO SCH (06:41)
[2023-01-05] MEDS: HEPARIN NA (PORCINE) 5,000 UNITS/ML 1ML VIAL SQ SCH ×3 (06:41→22:27)
[2023-01-05] MEDS: MIDODRINE HCL 5 MG TABLET PO SCH ×3 (06:41→22:27)
[2023-01-05] MEDS: AMINO ACIDS/PROTEIN HYDROLYS 30 ML LIQUID.PKT PO SCH ×2 (08:21→16:31)
[2023-01-05] MEDS: SERTRALINE HCL 50 MG TABLET (FP) PO SCH (11:48)
[2023-01-05] MEDS: CLOPIDOGREL BISULFATE 75 MG TABLET (FP) PO SCH (11:48)
[2023-01-05] MEDS: CALCITRIOL 0.25 MCG CAPSULE (FP) PO SCH (11:48)
[2023-01-05] MEDS: VITAMIN B COMP W-C 1 EA TABLET (NEPHRO-VITE) PO SCH (11:48)
[2023-01-05] MEDS: VALPROIC ACID 250 MG CAPSULE PO SCH ×2 (11:48→22:28)
[2023-01-05] MEDS: FAMOTIDINE 10 MG TABLET PO SCH (11:48)
[2023-01-05] MEDS: POLYETHYLENE GLYCOL (HEALTHYLAX) 3350 17 GM PACKET PO SCH (11:48)
[2023-01-05] MEDS: THIAMINE HCL 200 MG/2 ML VIAL IVPB SCH (11:52)
[2023-01-05] MEDS: ERTAPENEM SODIUM 0.5 GM in SODIUM CHLORIDE 50 ML IVPB SCH (11:52)
[2023-01-05] MEDS ORDERED: POTASSIUM PHOSPHATE 30 MM in DEXTROSE 5%-WATER - 500 ML IVPB ONE (12:21)
[2023-01-05] MEDS ORDERED: MAGNESIUM 1GM/D5W 100ML - 100 ML IVPB IVPB ONE (12:26)
[2023-01-05] MEDS: DAPTOMYCIN 300 MG in SODIUM CHLORIDE 50 ML IVPB SCH (15:24)
[2023-01-05] MEDS ORDERED: SODIUM CHLORIDE 250 ML IV PRN (15:54)
[2023-01-05 17:04] LABS: CHLORIDE 98 mmol/L (98-107); SODIUM 127 mmol/L (136-145)
[2023-01-05 17:05] LABS: CALCIUM 8.1 mg/dL (8.5-10.1)
[2023-01-05 17:06] LABS: BLOOD UREA NITROGEN 39.2 mg/dL (7-18); CO2 26 mmol/L (21-32); GLUCOSE,RANDOM 81 mg/dL (74-106)
[2023-01-05 17:09] LABS: CREATININE 3.4 mg/dL (0.55-1.3)
[2023-01-05 17:32] LABS: ANION GAP 4 mmol/L (4-13); POTASSIUM 2.9 mmol/L (3.5-5.1)
[2023-01-05] MEDS: SODIUM HYPOCHLORITE 0.25%- 473 ML BULK BOTTLE TP SCH (18:26)
[2023-01-05] MEDS: KCL 10 MEQ IVPB 10 MEQ/100 ML INFUS.BAG IVPB SCH ×2 (18:26→20:00)
[2023-01-05] MEDS: NAPH,MB-DB/K PH,MBDB POWDER PACKET PO SCH (22:27)
[2023-01-06] MEDS: MIDODRINE HCL 5 MG TABLET PO SCH ×3 (06:46→22:49)
[2023-01-06] MEDS: HEPARIN NA (PORCINE) 5,000 UNITS/ML 1ML VIAL SQ SCH ×4 (06:46→22:49)
[2023-01-06] MEDS: FERROUS SO4 325 MG TABLET (FP) PO SCH (06:46)
[2023-01-06] MEDS ORDERED: EPOETIN ALFA-EPBX 10,000 UNIT/ML VIAL IVPUSH ONE (11:00)
[2023-01-06] MEDS: AMINO ACIDS/PROTEIN HYDROLYS 30 ML LIQUID.PKT PO SCH ×2 (11:38→17:51)
[2023-01-06] MEDS: FAMOTIDINE 10 MG TABLET PO SCH (11:38)
[2023-01-06] MEDS: POLYETHYLENE GLYCOL (HEALTHYLAX) 3350 17 GM PACKET PO SCH (11:38)
[2023-01-06] MEDS: CALCITRIOL 0.25 MCG CAPSULE (FP) PO SCH (13:36)
[2023-01-06] MEDS: VITAMIN B COMP W-C 1 EA TABLET (NEPHRO-VITE) PO SCH (13:58)
[2023-01-06] MEDS: NAPH,MB-DB/K PH,MBDB POWDER PACKET PO SCH ×2 (13:58→22:49)
[2023-01-06] MEDS: VALPROIC ACID 250 MG CAPSULE PO SCH ×2 (13:58→23:41)
[2023-01-06] MEDS: CLOPIDOGREL BISULFATE 75 MG TABLET (FP) PO SCH (13:59)
[2023-01-06] MEDS: THIAMINE HCL 200 MG/2 ML VIAL IVPB SCH (13:59)
[2023-01-06] MEDS: SERTRALINE HCL 50 MG TABLET (FP) PO SCH (13:59)
[2023-01-06] MEDS: SODIUM HYPOCHLORITE 0.25%- 473 ML BULK BOTTLE TP SCH (14:19)
[2023-01-06] MEDS: ERTAPENEM SODIUM 0.5 GM in SODIUM CHLORIDE 50 ML IVPB SCH (14:41)
[2023-01-06] MEDS: DAPTOMYCIN 300 MG in SODIUM CHLORIDE 50 ML IVPB SCH (17:51)
[2023-01-07] MEDS: MIDODRINE HCL 5 MG TABLET PO SCH ×4 (06:01→21:46)
[2023-01-07] MEDS: HEPARIN NA (PORCINE) 5,000 UNITS/ML 1ML VIAL SQ SCH (07:02)
[2023-01-07] MEDS: FERROUS SO4 325 MG TABLET (FP) PO SCH (07:02)
[2023-01-07] MEDS: AMINO ACIDS/PROTEIN HYDROLYS 30 ML LIQUID.PKT PO SCH ×2 (10:52→17:14)
[2023-01-07] MEDS: POLYETHYLENE GLYCOL (HEALTHYLAX) 3350 17 GM PACKET PO SCH (10:53)
[2023-01-07] MEDS: VALPROIC ACID 250 MG CAPSULE PO SCH ×2 (10:53→21:46)
[2023-01-07] MEDS: SERTRALINE HCL 50 MG TABLET (FP) PO SCH (10:53)
[2023-01-07] MEDS: CLOPIDOGREL BISULFATE 75 MG TABLET (FP) PO SCH (10:53)
[2023-01-07] MEDS: CALCITRIOL 0.25 MCG CAPSULE (FP) PO SCH (10:53)
[2023-01-07] MEDS: FAMOTIDINE 10 MG TABLET PO SCH (10:53)
[2023-01-07] MEDS: VITAMIN B COMP W-C 1 EA TABLET (NEPHRO-VITE) PO SCH (10:53)
[2023-01-07] MEDS: SODIUM HYPOCHLORITE 0.25%- 473 ML BULK BOTTLE TP SCH (10:54)
[2023-01-07] MEDS: THIAMINE HCL 200 MG/2 ML VIAL IVPB SCH ×2 (10:54→11:52)
[2023-01-07] MEDS: NAPH,MB-DB/K PH,MBDB POWDER PACKET PO SCH ×2 (10:54→23:49)
[2023-01-07] MEDS: ERTAPENEM SODIUM 0.5 GM in SODIUM CHLORIDE 50 ML IVPB SCH (11:04)
[2023-01-07 13:30] LABS: BASO % 1.2 % (0-2.0); EOS % 0.5 % (0-4.5); HEMATOCRIT 23.2 % (35.4-49); HEMOGLOBIN 7.6 GM/dL (11.7-16.9); LYMPH % 15.6 % (8-40); MCH 28.1 pg (25.7-33.7); MCHC 32.7 g/dl (32.0-35.9); MEAN CELL VOLUME 86.1 fl (80-96); MEAN PLT VOLUME 6.3 fl (7.5-11.1); MONO % 15.9 % (3.8-10.2); NEUT % 66.8 % (42.8-82.8); PLATELET COUNT 317 10^3/uL (134-434); RBC 2.69 M/mm3 (4.00-5.60); RDW 20.9 % (11.9-15.9); WHITE BLOOD COUNT 9.8 K/mm3 (4.0-10.0)
[2023-01-07 14:12] LABS: POTASSIUM 3.2 mmol/L (3.5-5.1)
[2023-01-07 14:14] LABS: CALCIUM 7.6 mg/dL (8.5-10.1)
[2023-01-07 14:15] LABS: BLOOD UREA NITROGEN 18.4 mg/dL (7-18)
[2023-01-07 14:18] LABS: CREATININE 2.7 mg/dL (0.55-1.3); PHOSPHOROUS 1.8 mg/dL (2.5-4.9)
[2023-01-07 14:19] LABS: BILIRUBIN,TOTAL 0.3 mg/dL (0.2-1); TOT PROT 5.3 g/dl (6.4-8.2)
[2023-01-07 14:21] LABS: ALBUMIN 1.7 g/dl (3.4-5.0)
[2023-01-07 14:42] LABS: ANISOCYTOSIS 2+; MACROCYTOSIS 0
[2023-01-08] MEDS: FERROUS SO4 325 MG TABLET (FP) PO SCH (06:51)
[2023-01-08] MEDS: MIDODRINE HCL 5 MG TABLET PO SCH ×3 (06:51→21:51)
[2023-01-08 07:47] LABS: HEMOGLOBIN 7.5 GM/dL (11.7-16.9); MCH 28.4 pg (25.7-33.7); MCHC 32.4 g/dl (32.0-35.9); MEAN CELL VOLUME 87.5 fl (80-96); MEAN PLT VOLUME 6.1 fl (7.5-11.1); PLATELET COUNT 327 10^3/uL (134-434); RBC 2.63 M/mm3 (4.00-5.60); RDW 21.7 % (11.9-15.9); WHITE BLOOD COUNT 11.4 K/mm3 (4.0-10.0)
[2023-01-08 08:02] LABS: POTASSIUM 3.2 mmol/L (3.5-5.1)
[2023-01-08] MEDS ORDERED: SODIUM CHLORIDE 250 ML IV PRN (08:10)
[2023-01-08 08:16] LABS: BLOOD UREA NITROGEN 21.6 mg/dL (7-18); CALCIUM 7.7 mg/dL (8.5-10.1)
[2023-01-08 08:19] LABS: PHOSPHOROUS 2.2 mg/dL (2.5-4.9)
[2023-01-08 08:20] LABS: CREATININE 3.4 mg/dL (0.55-1.3)
[2023-01-08] MEDS: AMINO ACIDS/PROTEIN HYDROLYS 30 ML LIQUID.PKT PO SCH ×2 (08:37→17:10)
[2023-01-08] MEDS ORDERED: EPOETIN ALFA-EPBX 10,000 UNIT/ML VIAL SQ ONE (09:30)
[2023-01-08] MEDS: POLYETHYLENE GLYCOL (HEALTHYLAX) 3350 17 GM PACKET PO SCH (12:35)
[2023-01-08] MEDS: THIAMINE HCL 200 MG/2 ML VIAL IVPB SCH (12:42)
[2023-01-08] MEDS: CLOPIDOGREL BISULFATE 75 MG TABLET (FP) PO SCH (12:43)
[2023-01-08] MEDS: VITAMIN B COMP W-C 1 EA TABLET (NEPHRO-VITE) PO SCH (12:43)
[2023-01-08] MEDS: SERTRALINE HCL 50 MG TABLET (FP) PO SCH (12:43)
[2023-01-08] MEDS: NAPH,MB-DB/K PH,MBDB POWDER PACKET PO SCH ×2 (12:43→21:51)
[2023-01-08] MEDS: CALCITRIOL 0.25 MCG CAPSULE (FP) PO SCH (12:43)
[2023-01-08] MEDS: VALPROIC ACID 250 MG CAPSULE PO SCH ×2 (12:44→21:51)
[2023-01-08] MEDS: FAMOTIDINE 10 MG TABLET PO SCH (12:44)
[2023-01-08] MEDS: ERTAPENEM SODIUM 0.5 GM in SODIUM CHLORIDE 50 ML IVPB SCH (12:46)
[2023-01-08] MEDS ORDERED: POTASSIUM CHLORIDE TABS 20 MEQ TABLET.ER (FP) PO ONE (14:00)
[2023-01-08] MEDS: DAPTOMYCIN 300 MG in SODIUM CHLORIDE 50 ML IVPB SCH (17:10)
[2023-01-08] MEDS: SODIUM HYPOCHLORITE 0.25%- 473 ML BULK BOTTLE TP SCH (18:08)
[2023-01-09] MEDS: MIDODRINE HCL 5 MG TABLET PO SCH ×3 (06:29→22:39)
[2023-01-09] MEDS: FERROUS SO4 325 MG TABLET (FP) PO SCH (06:29)
[2023-01-09] MEDS: CLOPIDOGREL BISULFATE 75 MG TABLET (FP) PO SCH (11:00)
[2023-01-09] MEDS: SERTRALINE HCL 50 MG TABLET (FP) PO SCH (11:00)
[2023-01-09] MEDS: CALCITRIOL 0.25 MCG CAPSULE (FP) PO SCH (11:00)
[2023-01-09] MEDS: FAMOTIDINE 10 MG TABLET PO SCH (11:00)
[2023-01-09] MEDS: AMINO ACIDS/PROTEIN HYDROLYS 30 ML LIQUID.PKT PO SCH ×2 (11:00→17:17)
[2023-01-09] MEDS: NAPH,MB-DB/K PH,MBDB POWDER PACKET PO SCH ×2 (11:00→22:45)
[2023-01-09] MEDS: SODIUM HYPOCHLORITE 0.25%- 473 ML BULK BOTTLE TP SCH (11:01)
[2023-01-09] MEDS: POLYETHYLENE GLYCOL (HEALTHYLAX) 3350 17 GM PACKET PO SCH (11:01)
[2023-01-09] MEDS: VITAMIN B COMP W-C 1 EA TABLET (NEPHRO-VITE) PO SCH (11:01)
[2023-01-09] MEDS: VALPROIC ACID 250 MG CAPSULE PO SCH ×2 (11:03→22:45)
[2023-01-09] MEDS: ERTAPENEM SODIUM 0.5 GM in SODIUM CHLORIDE 50 ML IVPB SCH (11:39)
[2023-01-10] MEDS: MIDODRINE HCL 5 MG TABLET PO SCH ×3 (06:40→22:11)
[2023-01-10] MEDS: FERROUS SO4 325 MG TABLET (FP) PO SCH (06:40)
[2023-01-10 08:33] LABS: BASO % 0.8 % (0-2.0); HEMATOCRIT 22.9 % (35.4-49); HEMOGLOBIN 7.3 GM/dL (11.7-16.9); LYMPH % 14.3 % (8-40); MCH 28.1 pg (25.7-33.7); MCHC 32.1 g/dl (32.0-35.9); MEAN CELL VOLUME 87.7 fl (80-96); MEAN PLT VOLUME 6.4 fl (7.5-11.1); MONO % 8.3 % (3.8-10.2); NEUT % 75.6 % (42.8-82.8); PLATELET COUNT 320 10^3/uL (134-434); RBC 2.61 M/mm3 (4.00-5.60); RDW 22.5 % (11.9-15.9); WHITE BLOOD COUNT 13.4 K/mm3 (4.0-10.0)
[2023-01-10 09:03] LABS: POTASSIUM 3.5 mmol/L (3.5-5.1)
[2023-01-10 09:08] LABS: ALBUMIN 1.5 g/dl (3.4-5.0); BLOOD UREA NITROGEN 20.6 mg/dL (7-18); CALCIUM 8.3 mg/dL (8.5-10.1)
[2023-01-10 09:11] LABS: CREATININE 3.6 mg/dL (0.55-1.3); TOT PROT 5.2 g/dl (6.4-8.2)
[2023-01-10 09:13] LABS: BILIRUBIN,TOTAL 0.5 mg/dL (0.2-1)
[2023-01-10] MEDS: AMINO ACIDS/PROTEIN HYDROLYS 30 ML LIQUID.PKT PO SCH ×2 (10:22→16:47)
[2023-01-10] MEDS: POLYETHYLENE GLYCOL (HEALTHYLAX) 3350 17 GM PACKET PO SCH (10:22)
[2023-01-10] MEDS: NAPH,MB-DB/K PH,MBDB POWDER PACKET PO SCH ×2 (10:22→22:11)
[2023-01-10] MEDS: CLOPIDOGREL BISULFATE 75 MG TABLET (FP) PO SCH (10:23)
[2023-01-10] MEDS: FAMOTIDINE 10 MG TABLET PO SCH (10:23)
[2023-01-10] MEDS: SODIUM HYPOCHLORITE 0.25%- 473 ML BULK BOTTLE TP SCH (10:23)
[2023-01-10] MEDS: VITAMIN B COMP W-C 1 EA TABLET (NEPHRO-VITE) PO SCH (10:23)
[2023-01-10] MEDS: CALCITRIOL 0.25 MCG CAPSULE (FP) PO SCH (10:23)
[2023-01-10] MEDS: VALPROIC ACID 250 MG CAPSULE PO SCH ×2 (10:23→22:11)
[2023-01-10] MEDS: SERTRALINE HCL 50 MG TABLET (FP) PO SCH (10:23)
[2023-01-10] MEDS ORDERED: ACETAMINOPHEN 1000 MG/100 ML BAG IVPB PRN (13:48)
[2023-01-10] MEDS: ERTAPENEM SODIUM 0.5 GM in SODIUM CHLORIDE 50 ML IVPB SCH (13:55)
[2023-01-10] MEDS: NYSTATIN 500,000 UNITS/5 ML SUSPENSION PO SCH ×2 (13:56→17:17)
[2023-01-10] MEDS: AMINO ACIDS 4.25%/D5W 1,000 ML IV SCH (14:56)
[2023-01-11] MEDS: NYSTATIN 500,000 UNITS/5 ML SUSPENSION PO SCH ×4 (01:00→17:35)
[2023-01-11] MEDS: MIDODRINE HCL 5 MG TABLET PO SCH ×3 (05:41→22:39)
[2023-01-11] MEDS: FERROUS SO4 325 MG TABLET (FP) PO SCH (06:05)
[2023-01-11] MEDS ORDERED: SODIUM CHLORIDE 250 ML IV PRN (07:23)
[2023-01-11] MEDS ORDERED: EPOETIN ALFA-EPBX 10,000 UNIT/ML VIAL IVPUSH ONE (08:00)
[2023-01-11] MEDS: AMINO ACIDS/PROTEIN HYDROLYS 30 ML LIQUID.PKT PO SCH ×2 (08:51→16:49)
[2023-01-11 10:08] LABS: CHLORIDE 110 mmol/L (98-107); POTASSIUM 3.4 mmol/L (3.5-5.1); SODIUM 145 mmol/L (136-145)
[2023-01-11 10:15] LABS: ALBUMIN 1.4 g/dl (3.4-5.0); CALCIUM 7.9 mg/dL (8.5-10.1); GLUCOSE,RANDOM 82 mg/dL (74-106)
[2023-01-11 10:16] LABS: ANION GAP 5 mmol/L (4-13); BLOOD UREA NITROGEN 30.4 mg/dL (7-18); CO2 30 mmol/L (21-32)
[2023-01-11 10:18] LABS: CREATININE 4.3 mg/dL (0.55-1.3); SGOT/AST 24 U/L (15-37)
[2023-01-11 10:20] LABS: ALK PHOS 62 U/L (45-117); BILIRUBIN,TOTAL 0.5 mg/dL (0.2-1); SGPT/ALT < 6 U/L (13-61); TOT PROT 5.4 g/dl (6.4-8.2)
[2023-01-11] MEDS ORDERED: POTASSIUM PHOSPHATE 30 MM in DEXTROSE 5%-WATER - 500 ML IVPB ONE (12:00)
[2023-01-11] MEDS: CALCITRIOL 0.25 MCG CAPSULE (FP) PO SCH (12:13)
[2023-01-11] MEDS: FAMOTIDINE 10 MG TABLET PO SCH ×2 (12:13→16:24)
[2023-01-11] MEDS: VITAMIN B COMP W-C 1 EA TABLET (NEPHRO-VITE) PO SCH ×2 (12:13→16:26)
[2023-01-11] MEDS: CLOPIDOGREL BISULFATE 75 MG TABLET (FP) PO SCH ×2 (12:13→16:26)
[2023-01-11] MEDS: SERTRALINE HCL 50 MG TABLET (FP) PO SCH (12:13)
[2023-01-11] MEDS: NAPH,MB-DB/K PH,MBDB POWDER PACKET PO SCH ×3 (12:15→22:39)
[2023-01-11] MEDS: POLYETHYLENE GLYCOL (HEALTHYLAX) 3350 17 GM PACKET PO SCH (12:15)
[2023-01-11] MEDS: SODIUM HYPOCHLORITE 0.25%- 473 ML BULK BOTTLE TP SCH (12:16)
[2023-01-11 12:24] LABS: PHOSPHOROUS 2.2 mg/dL (2.5-4.9)
[2023-01-11 12:25] LABS: CHOLESTEROL 98 mg/dL (50-200)
[2023-01-11] MEDS: AMINO ACIDS 4.25%/D5W 1,000 ML IV SCH (12:25)
[2023-01-11 12:26] LABS: LDL CHOLESTEROL (ONLY SJRH) 60 mg/dL (5-100)
[2023-01-11] MEDS: VALPROIC ACID 250 MG CAPSULE PO SCH ×3 (12:26→22:36)
[2023-01-11 12:28] LABS: HDL CHOLESTEROL 22 mg/dL (40-60)
[2023-01-11] MEDS: ERTAPENEM SODIUM 0.5 GM in SODIUM CHLORIDE 50 ML IVPB SCH (12:31)
[2023-01-11] MEDS: DAPTOMYCIN 300 MG in SODIUM CHLORIDE 50 ML IVPB SCH (16:49)
[2023-01-12] MEDS: NYSTATIN 500,000 UNITS/5 ML SUSPENSION PO SCH ×5 (01:13→18:37)
[2023-01-12] MEDS: MIDODRINE HCL 5 MG TABLET PO SCH ×3 (05:57→22:28)
[2023-01-12] MEDS: FERROUS SO4 325 MG TABLET (FP) PO SCH (06:01)
[2023-01-12] MEDS: POLYETHYLENE GLYCOL (HEALTHYLAX) 3350 17 GM PACKET PO SCH (11:09)
[2023-01-12] MEDS: CALCITRIOL 0.25 MCG CAPSULE (FP) PO SCH (11:09)
[2023-01-12] MEDS: AMINO ACIDS/PROTEIN HYDROLYS 30 ML LIQUID.PKT PO SCH ×2 (11:09→18:35)
[2023-01-12] MEDS: SERTRALINE HCL 50 MG TABLET (FP) PO SCH (11:09)
[2023-01-12] MEDS: FAMOTIDINE 10 MG TABLET PO SCH (11:10)
[2023-01-12] MEDS: NAPH,MB-DB/K PH,MBDB POWDER PACKET PO SCH ×2 (11:10→22:28)
[2023-01-12] MEDS: CLOPIDOGREL BISULFATE 75 MG TABLET (FP) PO SCH (11:10)
[2023-01-12] MEDS: VITAMIN B COMP W-C 1 EA TABLET (NEPHRO-VITE) PO SCH (11:10)
[2023-01-12] MEDS: VALPROIC ACID 250 MG CAPSULE PO SCH ×2 (11:10→22:28)
[2023-01-12] MEDS: SODIUM HYPOCHLORITE 0.25%- 473 ML BULK BOTTLE TP SCH (11:10)
[2023-01-12] MEDS: ERTAPENEM SODIUM 0.5 GM in SODIUM CHLORIDE 50 ML IVPB SCH (11:51)
[2023-01-12] MEDS: DRONABINOL 2.5 MG CAPSULE PO SCH (15:28)
[2023-01-12] MEDS: AMINO ACIDS 4.25%/D5W 1,000 ML IV SCH (15:29)
[2023-01-12] MEDS ORDERED: SODIUM CHLORIDE 250 ML IV PRN (17:07)
[2023-01-13] MEDS: NYSTATIN 500,000 UNITS/5 ML SUSPENSION PO SCH ×4 (00:21→17:33)
[2023-01-13] MEDS: MIDODRINE HCL 5 MG TABLET PO SCH ×3 (05:53→21:33)
[2023-01-13] MEDS ORDERED: EPOETIN ALFA-EPBX 10,000 UNIT/ML VIAL IVPUSH ONE (07:30)
[2023-01-13] MEDS: FERROUS SO4 325 MG TABLET (FP) PO SCH (07:37)
[2023-01-13 08:43] LABS: HEMATOCRIT 21.9 % (35.4-49); HEMOGLOBIN 7.3 GM/dL (11.7-16.9); MCH 28.7 pg (25.7-33.7); MCHC 33.2 g/dl (32.0-35.9); MEAN CELL VOLUME 86.5 fl (80-96); MEAN PLT VOLUME 6.8 fl (7.5-11.1); PLATELET COUNT 266 10^3/uL (134-434); RBC 2.54 M/mm3 (4.00-5.60); RDW 21.4 % (11.9-15.9); WHITE BLOOD COUNT 10.8 K/mm3 (4.0-10.0)
[2023-01-13 09:28] LABS: BLOOD UREA NITROGEN 26.8 mg/dL (7-18); CALCIUM 7.8 mg/dL (8.5-10.1); MAGNESIUM 1.8 mg/dL (1.8-2.4)
[2023-01-13 09:30] LABS: PHOSPHOROUS 2.4 mg/dL (2.5-4.9)
[2023-01-13 09:31] LABS: CREATININE 3.5 mg/dL (0.55-1.3)
[2023-01-13] MEDS: AMINO ACIDS/PROTEIN HYDROLYS 30 ML LIQUID.PKT PO SCH ×2 (10:06→17:33)
[2023-01-13] MEDS: POLYETHYLENE GLYCOL (HEALTHYLAX) 3350 17 GM PACKET PO SCH (10:06)
[2023-01-13] MEDS: DRONABINOL 2.5 MG CAPSULE PO SCH (10:17)
[2023-01-13] MEDS: CLOPIDOGREL BISULFATE 75 MG TABLET (FP) PO SCH (10:17)
[2023-01-13] MEDS: SERTRALINE HCL 50 MG TABLET (FP) PO SCH (10:17)
[2023-01-13] MEDS: NAPH,MB-DB/K PH,MBDB POWDER PACKET PO SCH ×2 (10:18→21:28)
[2023-01-13] MEDS: VITAMIN B COMP W-C 1 EA TABLET (NEPHRO-VITE) PO SCH (10:18)
[2023-01-13] MEDS: CALCITRIOL 0.25 MCG CAPSULE (FP) PO SCH (10:18)
[2023-01-13] MEDS: FAMOTIDINE 10 MG TABLET PO SCH (10:18)
[2023-01-13] MEDS: VALPROIC ACID 250 MG CAPSULE PO SCH ×2 (10:18→21:27)
[2023-01-13] MEDS: SODIUM HYPOCHLORITE 0.25%- 473 ML BULK BOTTLE TP SCH (10:19)
[2023-01-13] MEDS: ERTAPENEM SODIUM 0.5 GM in SODIUM CHLORIDE 50 ML IVPB SCH (11:23)
[2023-01-13] MEDS: AMINO ACIDS 4.25%/D5W 1,000 ML IV SCH (11:26)
[2023-01-13] MEDS: DAPTOMYCIN 300 MG in SODIUM CHLORIDE 50 ML IVPB SCH (17:33)
[2023-01-14] MEDS: MIDODRINE HCL 5 MG TABLET PO SCH ×3 (06:14→22:08)
[2023-01-14] MEDS: FERROUS SO4 325 MG TABLET (FP) PO SCH (06:17)
[2023-01-14] MEDS: NYSTATIN 500,000 UNITS/5 ML SUSPENSION PO SCH ×5 (06:17→23:08)
[2023-01-14] MEDS: AMINO ACIDS/PROTEIN HYDROLYS 30 ML LIQUID.PKT PO SCH ×2 (08:58→17:10)
[2023-01-14] MEDS: AMINO ACIDS 4.25%/D5W 1,000 ML IV SCH (10:56)
[2023-01-14] MEDS: CLOPIDOGREL BISULFATE 75 MG TABLET (FP) PO SCH (10:57)
[2023-01-14] MEDS: DRONABINOL 5 MG CAPSULE PO SCH (10:57)
[2023-01-14] MEDS: FAMOTIDINE 10 MG TABLET PO SCH (10:57)
[2023-01-14] MEDS: NAPH,MB-DB/K PH,MBDB POWDER PACKET PO SCH ×2 (10:57→22:08)
[2023-01-14] MEDS: SERTRALINE HCL 50 MG TABLET (FP) PO SCH (10:57)
[2023-01-14] MEDS: CALCITRIOL 0.25 MCG CAPSULE (FP) PO SCH (10:57)
[2023-01-14] MEDS: POLYETHYLENE GLYCOL (HEALTHYLAX) 3350 17 GM PACKET PO SCH (10:57)
[2023-01-14] MEDS: SODIUM HYPOCHLORITE 0.25%- 473 ML BULK BOTTLE TP SCH (10:57)
[2023-01-14] MEDS: VITAMIN B COMP W-C 1 EA TABLET (NEPHRO-VITE) PO SCH (10:57)
[2023-01-14] MEDS: VALPROIC ACID 250 MG CAPSULE PO SCH ×2 (10:58→22:08)
[2023-01-14] MEDS: ERTAPENEM SODIUM 0.5 GM in SODIUM CHLORIDE 50 ML IVPB SCH (13:36)
[2023-01-14] MEDS ORDERED: SODIUM CHLORIDE 250 ML IV PRN (18:13)
[2023-01-14] MEDS ORDERED: FAT EMULSION/OLIVE/SOY (CLINOLIPID) 250 ML EMULSION IV SCH (22:00)
[2023-01-14] MEDS: FAT EMULSION/OLIVE/SOY/PHOSPHO 250 ML IV SCH (22:07)
[2023-01-15] MEDS: MIDODRINE HCL 5 MG TABLET PO SCH ×3 (06:24→22:08)
[2023-01-15] MEDS: NYSTATIN 500,000 UNITS/5 ML SUSPENSION PO SCH ×2 (06:25→17:35)
[2023-01-15] MEDS: FERROUS SO4 325 MG TABLET (FP) PO SCH (06:25)
[2023-01-15 09:33] LABS: HEMATOCRIT 22.5 % (35.4-49); HEMOGLOBIN 7.3 GM/dL (11.7-16.9); MCH 28.6 pg (25.7-33.7); MCHC 32.5 g/dl (32.0-35.9); MEAN CELL VOLUME 87.9 fl (80-96); PLATELET COUNT 313 10^3/uL (134-434); RBC 2.56 M/mm3 (4.00-5.60); RDW 21.2 % (11.9-15.9); WHITE BLOOD COUNT 13.1 K/mm3 (4.0-10.0)
[2023-01-15] MEDS: NAPH,MB-DB/K PH,MBDB POWDER PACKET PO SCH ×2 (09:42→22:07)
[2023-01-15] MEDS: AMINO ACIDS/PROTEIN HYDROLYS 30 ML LIQUID.PKT PO SCH ×2 (09:42→17:24)
[2023-01-15] MEDS: POLYETHYLENE GLYCOL (HEALTHYLAX) 3350 17 GM PACKET PO SCH (09:42)
[2023-01-15] MEDS: FAMOTIDINE 10 MG TABLET PO SCH (09:43)
[2023-01-15] MEDS: SODIUM HYPOCHLORITE 0.25%- 473 ML BULK BOTTLE TP SCH (09:43)
[2023-01-15] MEDS: SERTRALINE HCL 50 MG TABLET (FP) PO SCH (09:43)
[2023-01-15] MEDS: CLOPIDOGREL BISULFATE 75 MG TABLET (FP) PO SCH (09:43)
[2023-01-15] MEDS: VITAMIN B COMP W-C 1 EA TABLET (NEPHRO-VITE) PO SCH (09:43)
[2023-01-15] MEDS: DRONABINOL 5 MG CAPSULE PO SCH (09:44)
[2023-01-15] MEDS: CALCITRIOL 0.25 MCG CAPSULE (FP) PO SCH (09:44)
[2023-01-15 09:52] LABS: CHLORIDE 98 mmol/L (98-107); POTASSIUM 3.1 mmol/L (3.5-5.1); SODIUM 134 mmol/L (136-145)
[2023-01-15 09:55] LABS: CALCIUM 7.6 mg/dL (8.5-10.1)
[2023-01-15 09:56] LABS: ALBUMIN 1.4 g/dl (3.4-5.0); ANION GAP 8 mmol/L (4-13); BLOOD UREA NITROGEN 29.2 mg/dL (7-18); CO2 28 mmol/L (21-32); GLUCOSE,RANDOM 87 mg/dL (74-106); MAGNESIUM 1.6 mg/dL (1.8-2.4)
[2023-01-15 09:59] LABS: CREATININE 3.1 mg/dL (0.55-1.3); PHOSPHOROUS 1.5 mg/dL (2.5-4.9); SGOT/AST 27 U/L (15-37); SGPT/ALT < 6 U/L (13-61)
[2023-01-15 10:01] LABS: BILIRUBIN,TOTAL 0.4 mg/dL (0.2-1); TOT PROT 5.4 g/dl (6.4-8.2)
[2023-01-15 10:02] LABS: ALK PHOS 59 U/L (45-117)
[2023-01-15] MEDS: VALPROIC ACID 250 MG CAPSULE PO SCH ×2 (10:02→22:27)
[2023-01-15] MEDS ORDERED: POTASSIUM CHLORIDE ORAL LIQUID 20 MEQ/15 ML PO ONE (11:10)
[2023-01-15] MEDS: AMINO ACIDS 4.25%/D5W 1,000 ML IV SCH (11:12)
[2023-01-15] MEDS ORDERED: MAGNESIUM 1GM/D5W 100ML - 100 ML IVPB IVPB ONE (11:15)
[2023-01-15] MEDS: ERTAPENEM SODIUM 0.5 GM in SODIUM CHLORIDE 50 ML IVPB SCH (12:13)
[2023-01-15] MEDS ORDERED: SODIUM PHOSPHATE - 20 MM in DEXTROSE 5%-WATER - 500 ML IVPB ONE (12:30)
[2023-01-15] MEDS ORDERED: EPOETIN ALFA-EPBX 10,000 UNIT/ML VIAL IVPUSH ONE (14:15)
[2023-01-15] MEDS: DAPTOMYCIN 300 MG in SODIUM CHLORIDE 50 ML IVPB SCH (17:34)
[2023-01-15] MEDS: FAT EMULSION/OLIVE/SOY/PHOSPHO 250 ML IV SCH (22:07)
[2023-01-16] MEDS: NYSTATIN 500,000 UNITS/5 ML SUSPENSION PO SCH ×4 (00:12→17:54)
[2023-01-16] MEDS: MIDODRINE HCL 5 MG TABLET PO SCH ×4 (06:36→23:25)
[2023-01-16] MEDS: FERROUS SO4 325 MG TABLET (FP) PO SCH (06:36)
[2023-01-16] MEDS: FAMOTIDINE 10 MG TABLET PO SCH (10:49)
[2023-01-16] MEDS: VITAMIN B COMP W-C 1 EA TABLET (NEPHRO-VITE) PO SCH (10:49)
[2023-01-16] MEDS: DRONABINOL 5 MG CAPSULE PO SCH (10:49)
[2023-01-16] MEDS: POLYETHYLENE GLYCOL (HEALTHYLAX) 3350 17 GM PACKET PO SCH (10:49)
[2023-01-16] MEDS: NAPH,MB-DB/K PH,MBDB POWDER PACKET PO SCH ×3 (10:49→23:26)
[2023-01-16] MEDS: SERTRALINE HCL 50 MG TABLET (FP) PO SCH (10:49)
[2023-01-16] MEDS: CLOPIDOGREL BISULFATE 75 MG TABLET (FP) PO SCH (10:49)
[2023-01-16] MEDS: AMINO ACIDS/PROTEIN HYDROLYS 30 ML LIQUID.PKT PO SCH ×2 (10:49→17:54)
[2023-01-16] MEDS: CALCITRIOL 0.25 MCG CAPSULE (FP) PO SCH (10:49)
[2023-01-16] MEDS: VALPROIC ACID 250 MG CAPSULE PO SCH ×3 (10:49→23:26)
[2023-01-16 11:25] LABS: HEMATOCRIT 22.9 % (35.4-49); HEMOGLOBIN 7.2 GM/dL (11.7-16.9); MCH 27.9 pg (25.7-33.7); MCHC 31.4 g/dl (32.0-35.9); PLATELET COUNT 340 10^3/uL (134-434); RBC 2.57 M/mm3 (4.00-5.60); RDW 21.1 % (11.9-15.9); WHITE BLOOD COUNT 12.3 K/mm3 (4.0-10.0)
[2023-01-16] MEDS: AMINO ACIDS 4.25%/D5W 1,000 ML IV SCH (11:28)
[2023-01-16] MEDS: ERTAPENEM SODIUM 0.5 GM in SODIUM CHLORIDE 50 ML IVPB SCH (11:51)
[2023-01-16] MEDS: SODIUM HYPOCHLORITE 0.25%- 473 ML BULK BOTTLE TP SCH (11:51)
[2023-01-16 11:56] LABS: CHLORIDE 98 mmol/L (98-107); SODIUM 135 mmol/L (136-145)
[2023-01-16 11:58] LABS: BLOOD UREA NITROGEN 19.1 mg/dL (7-18); CALCIUM 7.1 mg/dL (8.5-10.1); CO2 32 mmol/L (21-32)
[2023-01-16 11:59] LABS: GLUCOSE,RANDOM 83 mg/dL (74-106); MAGNESIUM 1.6 mg/dL (1.8-2.4)
[2023-01-16 12:02] LABS: CREATININE 2.1 mg/dL (0.55-1.3); PHOSPHOROUS 2.1 mg/dL (2.5-4.9)
[2023-01-16 12:06] LABS: ANION GAP 6 mmol/L (4-13); POTASSIUM 2.8 mmol/L (3.5-5.1)
[2023-01-16] MEDS: KCL 10 MEQ IVPB 10 MEQ/100 ML INFUS.BAG IVPB SCH ×3 (13:09→15:59)
[2023-01-16] MEDS: FAT EMULSION/OLIVE/SOY/PHOSPHO 250 ML IV SCH (22:54)
[2023-01-16 23:44] LABS: POTASSIUM 3.4 mmol/L (3.5-5.1)
[2023-01-16 23:45] LABS: CALCIUM 7.4 mg/dL (8.5-10.1)
[2023-01-16 23:46] LABS: BLOOD UREA NITROGEN 24.2 mg/dL (7-18)
[2023-01-16 23:49] LABS: CREATININE 2.5 mg/dL (0.55-1.3)
[2023-01-17] MEDS: NYSTATIN 500,000 UNITS/5 ML SUSPENSION PO SCH ×4 (00:46→19:15)
[2023-01-17] MEDS: MIDODRINE HCL 5 MG TABLET PO SCH ×4 (05:50→22:55)
[2023-01-17] MEDS: FERROUS SO4 325 MG TABLET (FP) PO SCH (06:02)
[2023-01-17 10:02] LABS: INR 1.15 (0.83-1.09); PROTHROMBIN TIME (PATIENT) 13.3 SEC (9.7-13.0)
[2023-01-17 10:04] LABS: ACTIVATED PTT 27.7 SECONDS (25.2-36.5)
[2023-01-17 10:21] LABS: POTASSIUM 3.3 mmol/L (3.5-5.1)
[2023-01-17 10:40] LABS: CALCIUM 7.5 mg/dL (8.5-10.1)
[2023-01-17 10:41] LABS: ALBUMIN 1.4 g/dl (3.4-5.0); BLOOD UREA NITROGEN 28.4 mg/dL (7-18); MAGNESIUM 1.5 mg/dL (1.8-2.4)
[2023-01-17 10:43] LABS: PHOSPHOROUS 2.2 mg/dL (2.5-4.9)
[2023-01-17 10:44] LABS: CREATININE 2.9 mg/dL (0.55-1.3)
[2023-01-17 10:45] LABS: BILIRUBIN,TOTAL 0.5 mg/dL (0.2-1); TOT PROT 5.6 g/dl (6.4-8.2)
[2023-01-17] MEDS: AMINO ACIDS/PROTEIN HYDROLYS 30 ML LIQUID.PKT PO SCH ×3 (10:56→16:54)
[2023-01-17] MEDS: SERTRALINE HCL 50 MG TABLET (FP) PO SCH ×2 (10:57→13:15)
[2023-01-17] MEDS: NAPH,MB-DB/K PH,MBDB POWDER PACKET PO SCH ×3 (10:57→22:50)
[2023-01-17] MEDS: CALCITRIOL 0.25 MCG CAPSULE (FP) PO SCH ×2 (10:57→13:39)
[2023-01-17] MEDS: DRONABINOL 5 MG CAPSULE PO SCH (10:57)
[2023-01-17] MEDS: VITAMIN B COMP W-C 1 EA TABLET (NEPHRO-VITE) PO SCH ×2 (10:57→12:56)
[2023-01-17] MEDS: VALPROIC ACID 250 MG CAPSULE PO SCH ×2 (10:58→12:58)
[2023-01-17] MEDS: SODIUM HYPOCHLORITE 0.25%- 473 ML BULK BOTTLE TP SCH (10:58)
[2023-01-17] MEDS: FAMOTIDINE 10 MG TABLET PO SCH ×2 (10:58→13:00)
[2023-01-17] MEDS: POLYETHYLENE GLYCOL (HEALTHYLAX) 3350 17 GM PACKET PO SCH (10:59)
[2023-01-17] MEDS: HEPARIN NA (PORCINE) 5,000 UNITS/ML 1ML VIAL SQ SCH ×2 (11:01→22:45)
[2023-01-17] MEDS ORDERED: VALPROATE SODIUM 500 MG/5 ML VIAL IVPB SCH (13:00)
[2023-01-17] MEDS: ERTAPENEM SODIUM 0.5 GM in SODIUM CHLORIDE 50 ML IVPB SCH ×2 (13:40→16:51)
[2023-01-17] MEDS: AMINO ACIDS 4.25%/D5W 1,000 ML IV SCH (13:46)
[2023-01-17] MEDS ORDERED: SODIUM CHLORIDE 250 ML IV PRN (14:07)
[2023-01-17] MEDS ORDERED: VALPROATE SODIUM INJECTION 250 MG in SODIUM CHLORIDE 100 ML IVPB SCH (15:00)
[2023-01-17] MEDS ORDERED: VALPROATE SODIUM INJECTION 250 MG in SODIUM CHLORIDE 50 ML IVPB SCH (15:00)
[2023-01-17 17:24] LABS: HEMATOCRIT 21.8 % (35.4-49); HEMOGLOBIN 7.1 GM/dL (11.7-16.9); MCH 28.5 pg (25.7-33.7); MCHC 32.5 g/dl (32.0-35.9); MEAN CELL VOLUME 87.7 fl (80-96); MEAN PLT VOLUME 6.6 fl (7.5-11.1); PLATELET COUNT 369 10^3/uL (134-434); RBC 2.48 M/mm3 (4.00-5.60); RDW 21.8 % (11.9-15.9)
[2023-01-17 18:40] LABS: HIV INTERPRETATION NEGATIVE (NEGATIVE)
[2023-01-17] MEDS: FAT EMULSION/OLIVE/SOY/PHOSPHO 250 ML IV SCH (22:50)
[2023-01-18] MEDS: NYSTATIN 500,000 UNITS/5 ML SUSPENSION PO SCH ×5 (01:45→18:02)
[2023-01-18] MEDS: FERROUS SO4 325 MG TABLET (FP) PO SCH (06:24)
[2023-01-18] MEDS: MIDODRINE HCL 5 MG TABLET PO SCH ×3 (06:24→21:52)
[2023-01-18] MEDS: DRONABINOL 5 MG CAPSULE PO SCH (09:54)
[2023-01-18] MEDS: AMINO ACIDS/PROTEIN HYDROLYS 30 ML LIQUID.PKT PO SCH ×2 (09:54→16:53)
[2023-01-18 10:01] LABS: CHLORIDE 94 mmol/L (98-107); POTASSIUM 3.4 mmol/L (3.5-5.1); SODIUM 129 mmol/L (136-145)
[2023-01-18 10:03] LABS: ALBUMIN 1.3 g/dl (3.4-5.0); ANION GAP 10 mmol/L (4-13); BLOOD UREA NITROGEN 37.8 mg/dL (7-18); CALCIUM 7.5 mg/dL (8.5-10.1); CO2 25 mmol/L (21-32); GLUCOSE,RANDOM 77 mg/dL (74-106); MAGNESIUM 1.6 mg/dL (1.8-2.4)
[2023-01-18 10:06] LABS: CREATININE 3.5 mg/dL (0.55-1.3); PHOSPHOROUS 3.1 mg/dL (2.5-4.9); SGOT/AST 26 U/L (15-37)
[2023-01-18 10:08] LABS: BILIRUBIN,TOTAL 0.5 mg/dL (0.2-1); TOT PROT 5.5 g/dl (6.4-8.2)
[2023-01-18 10:09] LABS: ALK PHOS 60 U/L (45-117)
[2023-01-18 10:11] LABS: SGPT/ALT < 6 U/L (13-61)
[2023-01-18] MEDS: SODIUM HYPOCHLORITE 0.25%- 473 ML BULK BOTTLE TP SCH (10:48)
[2023-01-18] MEDS: POLYETHYLENE GLYCOL (HEALTHYLAX) 3350 17 GM PACKET PO SCH (10:48)
[2023-01-18] MEDS: FAMOTIDINE 10 MG TABLET PO SCH (10:50)
[2023-01-18] MEDS: SERTRALINE HCL 50 MG TABLET (FP) PO SCH (10:50)
[2023-01-18] MEDS: CALCITRIOL 0.25 MCG CAPSULE (FP) PO SCH (10:50)
[2023-01-18] MEDS: HEPARIN NA (PORCINE) 5,000 UNITS/ML 1ML VIAL SQ SCH ×2 (10:54→21:53)
[2023-01-18] MEDS: VITAMIN B COMP W-C 1 EA TABLET (NEPHRO-VITE) PO SCH (10:56)
[2023-01-18] MEDS: NAPH,MB-DB/K PH,MBDB POWDER PACKET PO SCH ×2 (10:57→21:53)
[2023-01-18] MEDS: MAGNESIUM OXIDE 400 MG TABLET (FP) PO SCH ×2 (12:54→21:53)
[2023-01-18] MEDS ORDERED: EPOETIN ALFA-EPBX 10,000 UNIT/ML VIAL IVPUSH ONE (13:45)
[2023-01-18] MEDS: AMINO ACIDS 4.25%/D5W 1,000 ML IV SCH (14:44)
[2023-01-18] MEDS: ERTAPENEM SODIUM 0.5 GM in SODIUM CHLORIDE 50 ML IVPB SCH (14:45)
[2023-01-18] MEDS: COLLAGENASE CLOSTRIDIUM HIST. 30 GRAMS TUBE TP SCH (14:45)
[2023-01-18] MEDS: DAPTOMYCIN 300 MG in SODIUM CHLORIDE 50 ML IVPB SCH (16:53)
[2023-01-18] MEDS: FAT EMULSION/OLIVE/SOY/PHOSPHO 250 ML IV SCH (21:52)
[2023-01-19] MEDS: NYSTATIN 500,000 UNITS/5 ML SUSPENSION PO SCH ×5 (00:51→17:18)
[2023-01-19] MEDS: FERROUS SO4 325 MG TABLET (FP) PO SCH (06:46)
[2023-01-19] MEDS: MIDODRINE HCL 5 MG TABLET PO SCH ×2 (06:46→21:56)
[2023-01-19] MEDS: ERTAPENEM SODIUM 0.5 GM in SODIUM CHLORIDE 50 ML IVPB SCH (11:27)
[2023-01-19] MEDS: COLLAGENASE CLOSTRIDIUM HIST. 30 GRAMS TUBE TP SCH (11:30)
[2023-01-19] MEDS: SODIUM HYPOCHLORITE 0.25%- 473 ML BULK BOTTLE TP SCH (11:31)
[2023-01-19] MEDS: DRONABINOL 5 MG CAPSULE PO SCH (11:33)
[2023-01-19] MEDS: CALCITRIOL 0.25 MCG CAPSULE (FP) PO SCH (11:34)
[2023-01-19] MEDS: NAPH,MB-DB/K PH,MBDB POWDER PACKET PO SCH ×2 (11:34→21:56)
[2023-01-19] MEDS: MAGNESIUM OXIDE 400 MG TABLET (FP) PO SCH ×2 (11:34→21:56)
[2023-01-19] MEDS: AMINO ACIDS/PROTEIN HYDROLYS 30 ML LIQUID.PKT PO SCH ×2 (11:34→17:18)
[2023-01-19] MEDS: POLYETHYLENE GLYCOL (HEALTHYLAX) 3350 17 GM PACKET PO SCH (11:34)
[2023-01-19] MEDS: SERTRALINE HCL 50 MG TABLET (FP) PO SCH (11:35)
[2023-01-19] MEDS: FAMOTIDINE 10 MG TABLET PO SCH (11:35)
[2023-01-19] MEDS: VITAMIN B COMP W-C 1 EA TABLET (NEPHRO-VITE) PO SCH (11:35)
[2023-01-19 11:36] LABS: CHOLESTEROL 97 mg/dL (50-200)
[2023-01-19 11:37] LABS: LDL CHOLESTEROL (ONLY SJRH) 66 mg/dL (5-100)
[2023-01-19] MEDS: HEPARIN NA (PORCINE) 5,000 UNITS/ML 1ML VIAL SQ SCH ×2 (11:38→21:56)
[2023-01-19 11:41] LABS: HDL CHOLESTEROL 19 mg/dL (40-60)
[2023-01-19] MEDS ORDERED: GENTAMICIN SO4 80 MG/2 ML VIAL ONE (12:25)
[2023-01-19] MEDS ORDERED: VANCOMYCIN 1,000 MG VIAL (RESTRICTED TO ID ONLY) ONE (12:25)
[2023-01-19] MEDS ORDERED: ACETAMINOPHEN INJECTION 100 ML IVPB ONE (12:45)
[2023-01-19] MEDS ORDERED: FENTANYL CITRATE/PF 50 MCG/ML VIAL ONE (12:48)
[2023-01-19] MEDS ORDERED: MIDAZOLAM HCL 2 MG/2 ML SINGLE DOSE VIAL ONE (12:48)
[2023-01-19] MEDS ORDERED: PROPOFOL 20 ML ONE (12:48)
[2023-01-19] MEDS ORDERED: LIDOCAINE HCL 1%, 10 MG/ML (20ML VIAL) ONE (13:11)
[2023-01-19] MEDS ORDERED: BUPIVACAINE HCL/PF 0.25% (2.5MG/ML) 10 ML VIAL ONE (13:11)
[2023-01-19] MEDS ORDERED: LIDOCAINE 1% P/F 10 MG/ML VIAL INF ONE (14:00)
[2023-01-19] MEDS ORDERED: BISACODYL 10 MG SUPP.RECT RC PRN (14:28)
[2023-01-19] MEDS ORDERED: SODIUM CHLORIDE 250 ML IV PRN (15:31)
[2023-01-20] MEDS: NYSTATIN 500,000 UNITS/5 ML SUSPENSION PO SCH ×4 (00:11→18:07)
[2023-01-20] MEDS: FAT EMULSION/OLIVE/SOY/PHOSPHO 250 ML IV SCH ×2 (02:11→21:40)
[2023-01-20] MEDS: MIDODRINE HCL 5 MG TABLET PO SCH ×3 (05:45→21:37)
[2023-01-20] MEDS: FERROUS SO4 325 MG TABLET (FP) PO SCH (08:06)
[2023-01-20] MEDS: SODIUM HYPOCHLORITE 0.25%- 473 ML BULK BOTTLE TP SCH (11:34)
[2023-01-20] MEDS: POLYETHYLENE GLYCOL (HEALTHYLAX) 3350 17 GM PACKET PO SCH (11:35)
[2023-01-20] MEDS: AMINO ACIDS/PROTEIN HYDROLYS 30 ML LIQUID.PKT PO SCH ×2 (11:36→17:22)
[2023-01-20] MEDS: DRONABINOL 5 MG CAPSULE PO SCH (11:36)
[2023-01-20] MEDS: COLLAGENASE CLOSTRIDIUM HIST. 30 GRAMS TUBE TP SCH (11:36)
[2023-01-20] MEDS: FAMOTIDINE 10 MG TABLET PO SCH (11:36)
[2023-01-20] MEDS: VITAMIN B COMP W-C 1 EA TABLET (NEPHRO-VITE) PO SCH (11:37)
[2023-01-20] MEDS: SERTRALINE HCL 50 MG TABLET (FP) PO SCH (11:37)
[2023-01-20] MEDS: CALCITRIOL 0.25 MCG CAPSULE (FP) PO SCH (11:37)
[2023-01-20] MEDS: MAGNESIUM OXIDE 400 MG TABLET (FP) PO SCH ×2 (11:37→21:37)
[2023-01-20] MEDS: HEPARIN NA (PORCINE) 5,000 UNITS/ML 1ML VIAL SQ SCH ×3 (11:37→22:00)
[2023-01-20] MEDS: NAPH,MB-DB/K PH,MBDB POWDER PACKET PO SCH ×3 (11:38→22:01)
[2023-01-20] MEDS ORDERED: DAPTOMYCIN 300 MG in SODIUM CHLORIDE 50 ML IVPB SCH (12:00)
[2023-01-20] MEDS: AMINO ACIDS 4.25%/D5W 1,000 ML IV SCH (13:18)
[2023-01-20] MEDS ORDERED: EPOETIN ALFA-EPBX 10,000 UNIT/ML VIAL IVPUSH ONE (15:15)
[2023-01-20 15:18] LABS: BASO % 1.2 % (0-2.0); EOS % 3.4 % (0-4.5); HEMATOCRIT 23.4 % (35.4-49); HEMOGLOBIN 7.5 GM/dL (11.7-16.9); LYMPH % 9.5 % (8-40); MCH 27.8 pg (25.7-33.7); MCHC 32.2 g/dl (32.0-35.9); MEAN CELL VOLUME 86.4 fl (80-96); MEAN PLT VOLUME 6.7 fl (7.5-11.1); MONO % 10.6 % (3.8-10.2); NEUT % 75.3 % (42.8-82.8); PLATELET COUNT 457 10^3/uL (134-434); RDW 21.2 % (11.9-15.9); WHITE BLOOD COUNT 9.5 K/mm3 (4.0-10.0)
[2023-01-20 15:39] LABS: ANISOCYTOSIS 2+; MACROCYTOSIS 1+
[2023-01-20 15:41] LABS: CHLORIDE 96 mmol/L (98-107); POTASSIUM 3.7 mmol/L (3.5-5.1); SODIUM 128 mmol/L (136-145)
[2023-01-20 15:43] LABS: CALCIUM 7.4 mg/dL (8.5-10.1)
[2023-01-20 15:44] LABS: ALBUMIN 1.3 g/dl (3.4-5.0); ANION GAP 9 mmol/L (4-13); BLOOD UREA NITROGEN 49.7 mg/dL (7-18); CO2 23 mmol/L (21-32); GLUCOSE,RANDOM 85 mg/dL (74-106); MAGNESIUM 1.7 mg/dL (1.8-2.4)
[2023-01-20 15:47] LABS: CREATININE 4.4 mg/dL (0.55-1.3); SGOT/AST 29 U/L (15-37); SGPT/ALT < 6 U/L (13-61)
[2023-01-20 15:48] LABS: BILIRUBIN,TOTAL 0.3 mg/dL (0.2-1)
[2023-01-20 15:50] LABS: ALK PHOS 59 U/L (45-117)
[2023-01-20] MEDS: ERTAPENEM SODIUM 0.5 GM in SODIUM CHLORIDE 50 ML IVPB SCH ×2 (18:24)
[2023-01-21] MEDS: NYSTATIN 500,000 UNITS/5 ML SUSPENSION PO SCH ×5 (00:09→23:39)
[2023-01-21 03:08] LABS: FIBROSIS SCORE. 0.19 (0.00-0.21); HCV ALPHA 2 MACRO CHART 116 mg/dL (110-276); NECRO.INFLAM ACT.SCORE 0.01 (0.00-0.17); NECROINFLAM. ACTIVITY GRADE A0-No activity (.)
[2023-01-21] MEDS: MIDODRINE HCL 5 MG TABLET PO SCH ×3 (05:56→21:58)
[2023-01-21] MEDS: FERROUS SO4 325 MG TABLET (FP) PO SCH (06:01)
[2023-01-21] MEDS: FAMOTIDINE 10 MG TABLET PO SCH ×2 (11:06→12:28)
[2023-01-21] MEDS: AMINO ACIDS/PROTEIN HYDROLYS 30 ML LIQUID.PKT PO SCH ×2 (11:06→17:49)
[2023-01-21] MEDS: HEPARIN NA (PORCINE) 5,000 UNITS/ML 1ML VIAL SQ SCH ×2 (11:07→21:59)
[2023-01-21] MEDS: MAGNESIUM OXIDE 400 MG TABLET (FP) PO SCH ×3 (11:07→21:59)
[2023-01-21] MEDS: DRONABINOL 5 MG CAPSULE PO SCH (11:08)
[2023-01-21] MEDS ORDERED: EPOETIN ALFA-EPBX 10,000 UNIT/ML VIAL SQ ONE (11:36)
[2023-01-21] MEDS ORDERED: SODIUM CHLORIDE 250 ML IV PRN (11:36)
[2023-01-21] MEDS: VITAMIN B COMP W-C 1 EA TABLET (NEPHRO-VITE) PO SCH ×2 (11:46→12:28)
[2023-01-21] MEDS: CALCITRIOL 0.25 MCG CAPSULE (FP) PO SCH ×2 (11:46→12:28)
[2023-01-21] MEDS: POLYETHYLENE GLYCOL (HEALTHYLAX) 3350 17 GM PACKET PO SCH (11:46)
[2023-01-21] MEDS: NAPH,MB-DB/K PH,MBDB POWDER PACKET PO SCH ×3 (11:46→21:58)
[2023-01-21] MEDS: SERTRALINE HCL 50 MG TABLET (FP) PO SCH ×2 (11:47→12:28)
[2023-01-21] MEDS: COLLAGENASE CLOSTRIDIUM HIST. 30 GRAMS TUBE TP SCH (12:28)
[2023-01-21] MEDS: SODIUM HYPOCHLORITE 0.25%- 473 ML BULK BOTTLE TP SCH (12:29)
[2023-01-21] MEDS: ERTAPENEM SODIUM 0.5 GM in SODIUM CHLORIDE 50 ML IVPB SCH (12:29)
[2023-01-21] MEDS: AMINO ACIDS 4.25%/D5W 1,000 ML IV SCH (16:15)
[2023-01-21] MEDS: FAT EMULSION/OLIVE/SOY/PHOSPHO 250 ML IV SCH (22:17)
[2023-01-21 22:36] VITALS: BP 137/60; PULSE 98; RESP 20; TEMP 98
== END 2023-01-22 00:21 | DRG 463 ==
LOC: JER 00:41 → JERBED 05:13 → UNDOADMOB 05:13 → OBSVTOIN 05:14 → INTOOBSV 05:14 → JERBED 08:19 → J5S 14:45 → OBSVTOIN 15:10 → J7W 01-03 16:25
PROVIDERS: ADMIT Internal Medicine; ATTEND Nurse Practitioner Family
PROC: 0QB10ZX Excision of Sacrum, Open Approach, Diagnostic (ICD-10-PCS; 2022-12-31)
PROC: 0KBN0ZZ Excision of Right Hip Muscle, Open Approach (ICD-10-PCS; 2022-12-31)
PROC: 30233N1 Transfusion of Nonautologous Red Blood Cells into Peripheral Vein, Percutaneous Approach (ICD-10-PCS; 2022-12-31)
PROC: 0KBP0ZZ Excision of Left Hip Muscle, Open Approach (ICD-10-PCS; principal; 2022-12-31 08:00)
PROC: 5A1D70Z Performance of Urinary Filtration, Intermittent, Less than 6 Hours Per Day (ICD-10-PCS; 2023-01-01)
PROC: 5A1D70Z Performance of Urinary Filtration, Intermittent, Less than 6 Hours Per Day (ICD-10-PCS; 2023-01-04)
PROC: 02HV33Z Insertion of Infusion Device into Superior Vena Cava, Percutaneous Approach (ICD-10-PCS; 2023-01-05)
PROC: B518ZZA Fluoroscopy of Superior Vena Cava, Guidance (ICD-10-PCS; 2023-01-05)
PROC: 5A1D70Z Performance of Urinary Filtration, Intermittent, Less than 6 Hours Per Day (ICD-10-PCS; 2023-01-08)
PROC: 5A1D70Z Performance of Urinary Filtration, Intermittent, Less than 6 Hours Per Day (ICD-10-PCS; 2023-01-11)
PROC: 0JBP0ZZ Excision of Left Lower Leg Subcutaneous Tissue and Fascia, Open Approach (ICD-10-PCS; 2023-01-19)
PROC: 0Y6J0Z1 Detachment at Left Lower Leg, High, Open Approach (ICD-10-PCS; 2023-01-19)
PROC: 3E10X8Z Irrigation of Skin and Mucous Membranes using Irrigating Substance (ICD-10-PCS; 2023-01-19)
PROC: 5A1D70Z Performance of Urinary Filtration, Intermittent, Less than 6 Hours Per Day (ICD-10-PCS; 2023-01-20)
DX: M46.28 Osteomyelitis of vertebra, sacral and sacrococcygeal region (principal); E43 Unspecified severe protein-calorie malnutrition; L89.154 Pressure ulcer of sacral region, stage 4; N18.6 End stage renal disease; G93.41 Metabolic encephalopathy; I12.0 Hypertensive chronic kidney disease with stage 5 chronic kidney disease or end stage renal disease; Z68.1 Body mass index [BMI] 19.9 or less, adult; E87.1 Hypo-osmolality and hyponatremia; N39.0 Urinary tract infection, site not specified; T87.44 Infection of amputation stump, left lower extremity; E11.51 Type 2 diabetes mellitus with diabetic peripheral angiopathy without gangrene; E11.22 Type 2 diabetes mellitus with diabetic chronic kidney disease; F32.A Depression, unspecified; E83.51 Hypocalcemia; E78.5 Hyperlipidemia, unspecified; I95.89 Other hypotension; E86.0 Dehydration; R19.7 Diarrhea, unspecified; E11.649 Type 2 diabetes mellitus with hypoglycemia without coma; E87.6 Hypokalemia; F03.90 Unspecified dementia, unspecified severity, without behavioral disturbance, psychotic disturbance, mood disturbance, and anxiety; I48.91 Unspecified atrial fibrillation; R41.82 Altered mental status, unspecified; B96.1 Klebsiella pneumoniae [K. pneumoniae] as the cause of diseases classified elsewhere; D63.1 Anemia in chronic kidney disease; Z89.512 Acquired absence of left leg below knee; Z99.2 Dependence on renal dialysis; Z89.611 Acquired absence of right leg above knee; Z89.612 Acquired absence of left leg above knee; Y83.8 Other surgical procedures as the cause of abnormal reaction of the patient, or of later complication, without mention of misadventure at the time of the procedure
CPT/HCPCS: 0241U-QW; 36415; 36430; 36569; 71045-TC-FY; 75820-TC-FY; 77001-TC-FY; 80048; 80053; 80061; 82172; 82550; 82652; 82728; 82962; 82977; 83010; 83540; 83550; 83690; 83735; 83880; 83883; 83970; 84100; 84460; 84466; 84484; 85025; 85027; 85045; 85610; 85730; 86850; 86900; 86901; 86922; 87040; 87070; 87075; 87086; 87186; 87205; 87340; 87350; 87389; 88304-TC; 93005; 93010; 93306-TC; 94760; 99285-25; C1751; G0378; J0878; J1644; P9058; Q5106

== ENCOUNTER 2023-02-03 17:11 | Inpatient (IN) | payer OTHER ==
[2023-02-03] MEDS ORDERED: SODIUM CHLORIDE 0.9% 500 ML INFUS.BAG IV ONE (18:27)
[2023-02-03 18:41] LABS: BASO % 0.9 % (0-2.0); EOS % 2.5 % (0-4.5); HEMATOCRIT 21.3 % (35.4-49); LYMPH % 10.5 % (8-40); MCH 27.8 pg (25.7-33.7); MCHC 31.1 g/dl (32.0-35.9); MEAN CELL VOLUME 89.5 fl (80-96); MEAN PLT VOLUME 6.5 fl (7.5-11.1); MONO % 8.9 % (3.8-10.2); NEUT % 77.2 % (42.8-82.8); PLATELET COUNT 404 10^3/uL (134-434); RBC 2.38 M/mm3 (4.00-5.60); RDW 21.4 % (11.9-15.9); WHITE BLOOD COUNT 15.5 K/mm3 (4.0-10.0)
[2023-02-03 18:50] LABS: HEMOGLOBIN 6.6 GM/dL (11.7-16.9)
[2023-02-03 18:51] LABS: INR 1.24 (0.83-1.09); PROTHROMBIN TIME (PATIENT) 14.4 SEC (9.7-13.0)
[2023-02-03 18:54] LABS: ACTIVATED PTT 29.6 SECONDS (25.2-36.5)
[2023-02-03 18:58] LABS: CHLORIDE 108 mmol/L (98-107); POTASSIUM 3.5 mmol/L (3.5-5.1); SODIUM 145 mmol/L (136-145); VENOUS BASE EXCESS 2.7 mmol/L (-2-2); VENOUS O2 SATURATION 21.9 % (70-80); VENOUS PCO2 53.1 mmHg (38-52); VENOUS PH 7.35 (7.310-7.410)
[2023-02-03 19:00] LABS: ALBUMIN 1.4 g/dl (3.4-5.0); CALCIUM 9.1 mg/dL (8.5-10.1)
[2023-02-03 19:01] LABS: ANION GAP 11 mmol/L (4-13); BLOOD UREA NITROGEN 46.2 mg/dL (7-18); CO2 27 mmol/L (21-32); GLUCOSE,RANDOM 57 mg/dL (74-106); MAGNESIUM 2.7 mg/dL (1.8-2.4)
[2023-02-03 19:03] LABS: PHOSPHOROUS 2.8 mg/dL (2.5-4.9)
[2023-02-03 19:04] LABS: SGOT/AST 15 U/L (15-37); SGPT/ALT < 6 U/L (13-61)
[2023-02-03 19:05] LABS: BILIRUBIN,TOTAL 0.6 mg/dL (0.2-1); TOT PROT 6.4 g/dl (6.4-8.2)
[2023-02-03 19:06] LABS: ALK PHOS 63 U/L (45-117)
[2023-02-03 19:54] LABS: ANISOCYTOSIS 2+; MACROCYTOSIS 1+
[2023-02-03 23:42] VITALS: BMI 20.8
[2023-02-04] MEDS ORDERED: MAGNESIUM HYDROX 2400MG/30ML ORAL SUSPENSION 30 ML CUP PO PRN (00:03)
[2023-02-04] MEDS ORDERED: BISACODYL 10 MG SUPP.RECT PR PRN (00:08)
[2023-02-04] MEDS ORDERED: ACETAMINOPHEN 325 MG TABLET (FP) PO PRN (00:22)
[2023-02-04] MEDS ORDERED: DEXTROSE 50%-WATER 25 GM/50 ML DISP.SYRIN IVPUSH ONE (06:34)
[2023-02-04] MEDS ORDERED: DEXTROSE 50%-WATER 25 GM/50 ML DISP.SYRIN ONE (06:35)
[2023-02-04] MEDS ORDERED: FERROUS SO4 325 MG TABLET (FP) PO SCH (07:00)
[2023-02-04] MEDS ORDERED: DEXTROSE 50%-WATER 25 GM/50 ML DISP.SYRIN IVPUSH PRN (07:39)
[2023-02-04] MEDS ORDERED: SODIUM CHLORIDE 250 ML IV PRN ×3 (09:30→13:13)
[2023-02-04] MEDS: MIDODRINE HCL 5 MG TABLET PO SCH ×3 (09:52→17:01)
[2023-02-04] MEDS: CALCIUM ACETATE 667 MG CAPSULE (FP) PO SCH ×3 (09:53→17:02)
[2023-02-04] MEDS ORDERED: MAGNESIUM OXIDE 400 MG TABLET (FP) PO SCH (10:00)
[2023-02-04] MEDS ORDERED: VITAMIN B COMP W-C 1 EA TABLET (NEPHRO-VITE) PO SCH (10:00)
[2023-02-04] MEDS ORDERED: APIXABAN 5 MG TABLET PO SCH (10:00)
[2023-02-04] MEDS ORDERED: FAMOTIDINE 10 MG TABLET PO SCH (10:00)
[2023-02-04] MEDS ORDERED: APIXABAN 2.5 MG TABLET PO SCH (10:00)
[2023-02-04] MEDS ORDERED: CLOPIDOGREL BISULFATE 75 MG TABLET (FP) PO SCH (10:00)
[2023-02-04] MEDS ORDERED: SERTRALINE HCL 50 MG TABLET (FP) PO SCH (10:00)
[2023-02-04] MEDS ORDERED: DAPTOMYCIN 350 MG in SODIUM CHLORIDE 50 ML IVPB ONE (13:00)
[2023-02-04] MEDS ORDERED: DAPTOMYCIN 350 MG in SODIUM CHLORIDE 50 ML IVPB SCH (13:00)
[2023-02-04 13:59] VITALS: RESP 18
[2023-02-04] MEDS ORDERED: ERTAPENEM SODIUM 1 GM in SODIUM CHLORIDE 50 ML IVPB SCH (14:00)
[2023-02-04 14:21] LABS: HEMATOCRIT 23.6 % (35.4-49); HEMOGLOBIN 7.7 GM/dL (11.7-16.9); MCH 28.2 pg (25.7-33.7); MCHC 32.7 g/dl (32.0-35.9); MEAN CELL VOLUME 86.1 fl (80-96); MEAN PLT VOLUME 6.7 fl (7.5-11.1); PLATELET COUNT 418 10^3/uL (134-434); RBC 2.74 M/mm3 (4.00-5.60); RDW 20.4 % (11.9-15.9); WHITE BLOOD COUNT 18.8 K/mm3 (4.0-10.0)
[2023-02-04 14:53] LABS: POTASSIUM 3.1 mmol/L (3.5-5.1)
[2023-02-04 14:54] LABS: CALCIUM 8.9 mg/dL (8.5-10.1)
[2023-02-04 14:55] LABS: BLOOD UREA NITROGEN 48.7 mg/dL (7-18)
[2023-02-04 14:58] LABS: CREATININE 7.4 mg/dL (0.55-1.3)
[2023-02-04] MEDS ORDERED: EPOETIN ALFA-EPBX 10,000 UNIT/ML VIAL SQ ONE (15:00)
[2023-02-04 18:58] VITALS: BP 134/74; PULSE 100; TEMP 97.5
== END 2023-02-05 | disposition home health service (06) | DRG 291 ==
LOC: JER 17:11 → JERBED 18:27 → J4W 22:44
PROVIDERS: ADMIT Internal Medicine; ATTEND Family Medicine
PROC: 30233N1 Transfusion of Nonautologous Red Blood Cells into Peripheral Vein, Percutaneous Approach (ICD-10-PCS; principal; 2023-02-03)
PROC: 5A1D70Z Performance of Urinary Filtration, Intermittent, Less than 6 Hours Per Day (ICD-10-PCS; 2023-02-04)
DX: I13.2 Hypertensive heart and chronic kidney disease with heart failure and with stage 5 chronic kidney disease, or end stage renal disease (principal); L89.154 Pressure ulcer of sacral region, stage 4; N18.6 End stage renal disease; E46 Unspecified protein-calorie malnutrition; E11.22 Type 2 diabetes mellitus with diabetic chronic kidney disease; Z99.2 Dependence on renal dialysis; E78.5 Hyperlipidemia, unspecified; E11.51 Type 2 diabetes mellitus with diabetic peripheral angiopathy without gangrene; I50.9 Heart failure, unspecified; D63.1 Anemia in chronic kidney disease; Z89.512 Acquired absence of left leg below knee; Z68.20 Body mass index [BMI] 20.0-20.9, adult
CPT/HCPCS: 0241U-QW; 36415; 36430; 80048; 80053; 82803; 82962; 83735; 84100; 85025; 85027; 85610; 85730; 86850; 86900; 86901; 86922; 93005; 93010; 99285-25; J0878; P9058; Q5106

== ENCOUNTER 2023-02-24 19:34 | Inpatient (IN) | payer OTHER ==
[2023-02-24] MEDS ORDERED: PIPERACILLIN/TAZOB 4.5 GM 4.5 GM in DEXTROSE 5%-WATER 100 ML IVPB ONE (20:27)
[2023-02-24] MEDS ORDERED: VANCOMYCIN 1,000 MG in DEXTROSE 5%-WATER - 250 ML IVPB ONE (20:27)
[2023-02-24 20:34] VITALS: BMI 14.3
[2023-02-24 21:30] LABS: BASO % 0.3 % (0-2.0); EOS % 0.1 % (0-4.5); HEMATOCRIT 17.8 % (35.4-49); LYMPH % 5.9 % (8-40); MCHC 31.2 g/dl (32.0-35.9); MEAN CELL VOLUME 89.9 fl (80-96); MEAN PLT VOLUME 7.2 fl (7.5-11.1); MONO % 4.6 % (3.8-10.2); NEUT % 89.1 % (42.8-82.8); PLATELET COUNT 483 10^3/uL (134-434); RBC 1.98 M/mm3 (4.00-5.60); RDW 19.5 % (11.9-15.9); WHITE BLOOD COUNT 15.9 K/mm3 (4.0-10.0)
[2023-02-24 21:37] LABS: HEMOGLOBIN 5.6 GM/dL (11.7-16.9); INR 1.6 (0.83-1.09); PROTHROMBIN TIME (PATIENT) 18.5 SEC (9.7-13.0)
[2023-02-24 21:40] LABS: ACTIVATED PTT 28.2 SECONDS (25.2-36.5)
[2023-02-24 21:46] LABS: CHLORIDE 100 mmol/L (98-107); SODIUM 136 mmol/L (136-145)
[2023-02-24 21:48] LABS: CALCIUM 8.7 mg/dL (8.5-10.1); CO2 28 mmol/L (21-32); GLUCOSE,RANDOM 77 mg/dL (74-106)
[2023-02-24 21:49] LABS: ALBUMIN 1.4 g/dl (3.4-5.0)
[2023-02-24 21:52] LABS: SGOT/AST 27 U/L (15-37); SGPT/ALT 7 U/L (13-61)
[2023-02-24 21:53] LABS: BILIRUBIN,TOTAL 0.6 mg/dL (0.2-1); TOT PROT 6.7 g/dl (6.4-8.2)
[2023-02-24 21:54] LABS: ALK PHOS 64 U/L (45-117)
[2023-02-24 21:58] LABS: BLOOD UREA NITROGEN 38.3 mg/dL (7-18)
[2023-02-24 22:14] LABS: ANION GAP 8 mmol/L (4-13); POTASSIUM 2.7 mmol/L (3.5-5.1)
[2023-02-24 22:27] LABS: ERYTHROCYTE SEDIMENTATION RATE > 140 mm/hr (0-20)
[2023-02-24] MEDS ORDERED: SODIUM CHLORIDE 0.9% 500 ML INFUS.BAG IV ONE (22:50)
[2023-02-24] MEDS ORDERED: PIPERACILLIN/TAZOB 4.5 GM 4.5 GM/100 ML BAG IVPB ONE (22:51)
[2023-02-24] MEDS ORDERED: POTASSIUM CHLORIDE ORAL LIQUID 20 MEQ/15 ML PO ONE (22:51)
[2023-02-24] MEDS ORDERED: VANCOMYCIN 1 GRAM (PRE-DOCKED) 1,000 MG/250 ML BAG IVPB ONE (23:10)
[2023-02-24] MEDS ORDERED: POTASSIUM CHLORIDE ORAL LIQUID 20 MEQ/15 ML ONE (23:10)
[2023-02-24] MEDS ORDERED: KCL 10 MEQ IVPB 10 MEQ/100 ML INFUS.BAG IVPB ONE (23:10)
[2023-02-25] MEDS ORDERED: MIDODRINE HCL 5 MG TABLET PO SCH (06:00)
[2023-02-25] MEDS ORDERED: BISACODYL 10 MG SUPP.RECT PR PRN (06:04)
[2023-02-25] MEDS ORDERED: SODIUM PHOSPHATE/NA BIPHOS 133 ML ENEMA RC PRN (06:05)
[2023-02-25] MEDS ORDERED: MAGNESIUM HYDROX 2400MG/30ML ORAL SUSPENSION 30 ML CUP PO PRN (07:18)
[2023-02-25] MEDS ORDERED: NAPH,MB-DB/K PH,MBDB POWDER PACKET ONE (08:02)
[2023-02-25] MEDS ORDERED: MIDODRINE HCL 5 MG TABLET ONE (08:02)
[2023-02-25] MEDS: MIDODRINE HCL 5 MG TABLET PO SCH ×2 (08:18→18:22)
[2023-02-25] MEDS ORDERED: PIPERACILLIN/TAZOB 2.25 GM 2.25 GM in DEXTROSE 5%-WATER - 50 ML IVPB SCH (10:00)
[2023-02-25] MEDS: CALCIUM ACETATE 667 MG CAPSULE (FP) PO SCH ×3 (10:16→18:22)
[2023-02-25] MEDS: FERROUS SO4 325 MG TABLET (FP) PO SCH (10:16)
[2023-02-25] MEDS: MAGNESIUM OXIDE 400 MG TABLET (FP) PO SCH ×2 (10:16→22:18)
[2023-02-25] MEDS: VITAMIN B COMP W-C 1 EA TABLET (NEPHRO-VITE) PO SCH (10:18)
[2023-02-25] MEDS: SERTRALINE HCL 50 MG TABLET (FP) PO SCH (10:18)
[2023-02-25] MEDS: FAMOTIDINE 20 MG TABLET PO SCH ×2 (10:18→22:18)
[2023-02-25] MEDS ORDERED: SODIUM CHLORIDE 250 ML IV PRN (13:33)
[2023-02-25] MEDS ORDERED: EPOETIN ALFA-EPBX 10,000 UNIT/ML VIAL SQ ONE (13:45)
[2023-02-25 14:03] LABS: BASO % 0.2 % (0-2.0); EOS % 0.1 % (0-4.5); LYMPH % 5.1 % (8-40); MCH 27.2 pg (25.7-33.7); MCHC 32.2 g/dl (32.0-35.9); MEAN CELL VOLUME 84.5 fl (80-96); MEAN PLT VOLUME 6.9 fl (7.5-11.1); MONO % 5.5 % (3.8-10.2); NEUT % 89.1 % (42.8-82.8); PLATELET COUNT 416 10^3/uL (134-434); RBC 2.96 M/mm3 (4.00-5.60); RDW 18.7 % (11.9-15.9); WHITE BLOOD COUNT 16.3 K/mm3 (4.0-10.0)
[2023-02-25 14:51] LABS: CHLORIDE 104 mmol/L (98-107); POTASSIUM 3.1 mmol/L (3.5-5.1); SODIUM 135 mmol/L (136-145)
[2023-02-25 14:53] LABS: ALBUMIN 1.3 g/dl (3.4-5.0); ANION GAP 6 mmol/L (4-13); BLOOD UREA NITROGEN 38.9 mg/dL (7-18); CALCIUM 8.8 mg/dL (8.5-10.1); CO2 26 mmol/L (21-32); GLUCOSE,RANDOM 87 mg/dL (74-106); MAGNESIUM 2.4 mg/dL (1.8-2.4)
[2023-02-25 14:56] LABS: CREATININE 4.1 mg/dL (0.55-1.3); PHOSPHOROUS 1.7 mg/dL (2.5-4.9); SGOT/AST 19 U/L (15-37); SGPT/ALT < 6 U/L (13-61)
[2023-02-25 14:58] LABS: BILIRUBIN,TOTAL 0.9 mg/dL (0.2-1); TOT PROT 6.1 g/dl (6.4-8.2)
[2023-02-25 14:59] LABS: ALK PHOS 60 U/L (45-117)
[2023-02-25] MEDS ORDERED: PROPOFOL 20 ML ONE (15:26)
[2023-02-25] MEDS ORDERED: LIDOCAINE HCL 2% 100 MG/5 ML DISP.SYRIN ONE (15:26)
[2023-02-25] MEDS ORDERED: MIDAZOLAM HCL 2 MG/2 ML SINGLE DOSE VIAL ONE (15:27)
[2023-02-25] MEDS ORDERED: NOREPINEPHRINE BITARTRATE 4 MG/4 ML ML IV ONE (16:04)
[2023-02-25] MEDS ORDERED: ROCURONIUM BROMIDE 50 MG/5 ML SYRINGE ONE (16:06)
[2023-02-25] MEDS: SODIUM CHLORIDE 0.45%/POT 20 MEQ/1,000 ML INFUS.BAG IV SCH (18:21)
[2023-02-25] MEDS: SODIUM CHLORIDE 1,000 ML IV SCH (18:21)
[2023-02-25] MEDS: PIPERACILLIN/TAZOB 2.25 GM 2.25 GM in DEXTROSE 5%-WATER - 50 ML IVPB SCH (18:22)
[2023-02-25] MEDS ORDERED: PIPERACILLIN/TAZOB 2.25 GM 2.25 GM/50 ML BAG IVPB ONE (18:26)
[2023-02-25] MEDS ORDERED: FAMOTIDINE 20 MG TABLET ONE (21:55)
[2023-02-25] MEDS ORDERED: MAGNESIUM OXIDE 400 MG TABLET (FP) ONE (21:55)
[2023-02-25] MEDS: KCL 10 MEQ IVPB 10 MEQ/100 ML INFUS.BAG IVPB SCH (23:47)
[2023-02-26] MEDS: MIDODRINE HCL 5 MG TABLET PO SCH ×4 (02:45→23:12)
[2023-02-26] MEDS: PIPERACILLIN/TAZOB 2.25 GM 2.25 GM in DEXTROSE 5%-WATER - 50 ML IVPB SCH ×3 (02:51→20:06)
[2023-02-26] MEDS ORDERED: PIPERACILLIN/TAZOB 2.25 GM 2.25 GM/50 ML BAG IVPB ONE ×3 (02:53→19:45)
[2023-02-26] MEDS ORDERED: PIPERACILLIN/TAZOB 2.25 GM 2.25 GM in DEXTROSE 5%-WATER - 50 ML IVPB SCH (10:00)
[2023-02-26] MEDS: FAMOTIDINE 20 MG TABLET PO SCH ×2 (11:00→23:09)
[2023-02-26] MEDS: FERROUS SO4 325 MG TABLET (FP) PO SCH (11:00)
[2023-02-26] MEDS: VITAMIN B COMP W-C 1 EA TABLET (NEPHRO-VITE) PO SCH (11:00)
[2023-02-26] MEDS: MAGNESIUM OXIDE 400 MG TABLET (FP) PO SCH ×2 (11:00→23:09)
[2023-02-26] MEDS: SERTRALINE HCL 50 MG TABLET (FP) PO SCH (11:00)
[2023-02-26] MEDS: CALCIUM ACETATE 667 MG CAPSULE (FP) PO SCH ×3 (11:00→20:06)
[2023-02-26] MEDS ORDERED: KCL 10 MEQ IVPB 10 MEQ/100 ML INFUS.BAG IVPB SCH (12:00)
[2023-02-26] MEDS: SODIUM CHLORIDE 0.45%/POT 20 MEQ/1,000 ML INFUS.BAG IV SCH (12:35)
[2023-02-26] MEDS ORDERED: KCL 10 MEQ IVPB 10 MEQ/100 ML INFUS.BAG IVPB ONE (12:37)
[2023-02-26] MEDS: SODIUM CHLORIDE 1,000 ML IV SCH (20:06)
[2023-02-27] MEDS ORDERED: PIPERACILLIN/TAZOB 2.25 GM 2.25 GM/50 ML BAG IVPB ONE ×3 (02:49→17:34)
[2023-02-27] MEDS: PIPERACILLIN/TAZOB 2.25 GM 2.25 GM in DEXTROSE 5%-WATER - 50 ML IVPB SCH ×3 (03:11→17:43)
[2023-02-27 08:41] LABS: BASO % 0.4 % (0-2.0); EOS % 0.2 % (0-4.5); HEMATOCRIT 55.8 % (35.4-49); MCH 29.7 pg (25.7-33.7); MCHC 33.7 g/dl (32.0-35.9); MEAN CELL VOLUME 87.9 fl (80-96); MEAN PLT VOLUME 7.2 fl (7.5-11.1); MONO % 4.8 % (3.8-10.2); NEUT % 78.6 % (42.8-82.8); PLATELET COUNT 240 10^3/uL (134-434); RBC 6.35 M/mm3 (4.00-5.60); RDW 18.9 % (11.9-15.9); WHITE BLOOD COUNT 10.8 K/mm3 (4.0-10.0)
[2023-02-27 08:54] LABS: POTASSIUM 4.2 mmol/L (3.5-5.1)
[2023-02-27 09:01] LABS: BLOOD UREA NITROGEN 17.8 mg/dL (7-18); CALCIUM 9.1 mg/dL (8.5-10.1)
[2023-02-27 09:05] LABS: BILIRUBIN,TOTAL 1.3 mg/dL (0.2-1); CREATININE 2.4 mg/dL (0.55-1.3)
[2023-02-27 09:06] LABS: TOT PROT 7.6 g/dl (6.4-8.2)
[2023-02-27 09:18] LABS: HEMOGLOBIN 18.8 GM/dL (11.7-16.9)
[2023-02-27 09:20] LABS: ALBUMIN 1.8 g/dl (3.4-5.0)
[2023-02-27] MEDS: CALCIUM ACETATE 667 MG CAPSULE (FP) PO SCH ×3 (10:29→17:43)
[2023-02-27] MEDS: SODIUM CHLORIDE 0.45%/POT 20 MEQ/1,000 ML INFUS.BAG IV SCH (10:29)
[2023-02-27] MEDS: MIDODRINE HCL 5 MG TABLET PO SCH ×2 (10:29→17:44)
[2023-02-27] MEDS: SERTRALINE HCL 50 MG TABLET (FP) PO SCH (10:30)
[2023-02-27] MEDS: FERROUS SO4 325 MG TABLET (FP) PO SCH (10:30)
[2023-02-27] MEDS: VITAMIN B COMP W-C 1 EA TABLET (NEPHRO-VITE) PO SCH (10:30)
[2023-02-27] MEDS: MAGNESIUM OXIDE 400 MG TABLET (FP) PO SCH ×2 (10:30→23:40)
[2023-02-27] MEDS: FAMOTIDINE 20 MG TABLET PO SCH ×2 (10:30→23:45)
[2023-02-27] MEDS ORDERED: SODIUM CHLORIDE 250 ML IV PRN (16:21)
[2023-02-27] MEDS: SODIUM CHLORIDE 1,000 ML IV SCH (16:45)
[2023-02-28] MEDS ORDERED: MAGNESIUM OXIDE 400 MG TABLET (FP) ONE (00:37)
[2023-02-28] MEDS ORDERED: FAMOTIDINE 20 MG TABLET ONE (00:37)
[2023-02-28] MEDS: MIDODRINE HCL 5 MG TABLET PO SCH ×3 (00:42→17:52)
[2023-02-28] MEDS ORDERED: PIPERACILLIN/TAZOB 2.25 GM 2.25 GM/50 ML BAG IVPB ONE (02:51)
[2023-02-28] MEDS: PIPERACILLIN/TAZOB 2.25 GM 2.25 GM in DEXTROSE 5%-WATER - 50 ML IVPB SCH ×2 (03:43→21:47)
[2023-02-28] MEDS ORDERED: MIDODRINE HCL 5 MG TABLET ONE (07:59)
[2023-02-28] MEDS: CALCIUM ACETATE 667 MG CAPSULE (FP) PO SCH ×2 (08:45→17:52)
[2023-02-28 11:04] LABS: BASO % 0.2 % (0-2.0); EOS % 0.5 % (0-4.5); HEMATOCRIT 41.7 % (35.4-49); HEMOGLOBIN 13.5 GM/dL (11.7-16.9); LYMPH % 6.5 % (8-40); MCH 28.7 pg (25.7-33.7); MCHC 32.4 g/dl (32.0-35.9); MEAN CELL VOLUME 88.5 fl (80-96); MEAN PLT VOLUME 7.2 fl (7.5-11.1); MONO % 6.7 % (3.8-10.2); NEUT % 86.1 % (42.8-82.8); PLATELET COUNT 245 10^3/uL (134-434); RBC 4.71 M/mm3 (4.00-5.60); RDW 18.7 % (11.9-15.9); WHITE BLOOD COUNT 18.6 K/mm3 (4.0-10.0)
[2023-02-28 11:37] LABS: CHLORIDE 108 mmol/L (98-107); POTASSIUM 3.5 mmol/L (3.5-5.1); SODIUM 141 mmol/L (136-145)
[2023-02-28 11:40] LABS: CALCIUM 8.6 mg/dL (8.5-10.1)
[2023-02-28 11:41] LABS: ANION GAP 9 mmol/L (4-13); BLOOD UREA NITROGEN 24.2 mg/dL (7-18); CO2 24 mmol/L (21-32); GLUCOSE,RANDOM 80 mg/dL (74-106)
[2023-02-28 11:44] LABS: CREATININE 2.8 mg/dL (0.55-1.3); SGOT/AST 35 U/L (15-37); SGPT/ALT 10 U/L (13-61)
[2023-02-28 11:45] LABS: TOT PROT 6.1 g/dl (6.4-8.2)
[2023-02-28 11:46] LABS: BILIRUBIN,TOTAL 0.9 mg/dL (0.2-1)
[2023-02-28 11:47] LABS: ALK PHOS 72 U/L (45-117)
[2023-02-28 11:49] LABS: ALBUMIN 1.4 g/dl (3.4-5.0); PHOSPHOROUS 0.9 mg/dL (2.5-4.9)
[2023-02-28] MEDS: FAMOTIDINE 20 MG TABLET PO SCH ×2 (17:51→22:49)
[2023-02-28] MEDS: VITAMIN B COMP W-C 1 EA TABLET (NEPHRO-VITE) PO SCH (17:51)
[2023-02-28] MEDS: SERTRALINE HCL 50 MG TABLET (FP) PO SCH (17:51)
[2023-02-28] MEDS: FERROUS SO4 325 MG TABLET (FP) PO SCH (17:51)
[2023-02-28] MEDS: MAGNESIUM OXIDE 400 MG TABLET (FP) PO SCH ×2 (17:51→22:49)
[2023-02-28] MEDS: SODIUM CHLORIDE 0.45%/POT 20 MEQ/1,000 ML INFUS.BAG IV SCH (21:04)
[2023-02-28] MEDS: DAPTOMYCIN 300 MG in SODIUM CHLORIDE 50 ML IVPB SCH (21:46)
[2023-03-01] MEDS: MIDODRINE HCL 5 MG TABLET PO SCH ×3 (01:00→17:06)
[2023-03-01] MEDS: PIPERACILLIN/TAZOB 2.25 GM 2.25 GM in DEXTROSE 5%-WATER - 50 ML IVPB SCH ×3 (01:50→17:06)
[2023-03-01] MEDS: SODIUM CHLORIDE 0.45%/POT 20 MEQ/1,000 ML INFUS.BAG IV SCH (09:50)
[2023-03-01 10:46] LABS: BASO % 0.2 % (0-2.0); HEMATOCRIT 39.2 % (35.4-49); HEMOGLOBIN 12.9 GM/dL (11.7-16.9); MCH 28.9 pg (25.7-33.7); MEAN CELL VOLUME 87.8 fl (80-96); MONO % 6.3 % (3.8-10.2); NEUT % 84.5 % (42.8-82.8); PLATELET COUNT 207 10^3/uL (134-434); RBC 4.47 M/mm3 (4.00-5.60); RDW 18.9 % (11.9-15.9); WHITE BLOOD COUNT 14.3 K/mm3 (4.0-10.0)
[2023-03-01] MEDS: FAMOTIDINE 20 MG TABLET PO SCH ×2 (10:47→22:00)
[2023-03-01] MEDS: SERTRALINE HCL 50 MG TABLET (FP) PO SCH (10:48)
[2023-03-01] MEDS: MAGNESIUM OXIDE 400 MG TABLET (FP) PO SCH ×2 (10:48→22:00)
[2023-03-01] MEDS: FERROUS SO4 325 MG TABLET (FP) PO SCH (10:48)
[2023-03-01] MEDS: VITAMIN B COMP W-C 1 EA TABLET (NEPHRO-VITE) PO SCH (10:48)
[2023-03-01] MEDS: CALCIUM ACETATE 667 MG CAPSULE (FP) PO SCH ×3 (10:48→17:06)
[2023-03-01 12:07] LABS: ALBUMIN 1.5 g/dl (3.4-5.0); BILIRUBIN,TOTAL 0.8 mg/dL (0.2-1); BLOOD UREA NITROGEN 14.2 mg/dL (7-18); CALCIUM 8.2 mg/dL (8.5-10.1); CREATININE 2.3 mg/dL (0.55-1.3); POTASSIUM 3.2 mmol/L (3.5-5.1); TOT PROT 5.8 g/dl (6.4-8.2)
[2023-03-01] MEDS: BANATROL PLUS POWDER PACKET PO SCH ×2 (14:16→22:00)
[2023-03-01] MEDS ORDERED: SODIUM CHLORIDE 250 ML IV PRN (14:52)
[2023-03-01] MEDS: AMINO ACIDS/PROTEIN HYDROLYS 30 ML LIQUID.PKT PO SCH (17:06)
[2023-03-02] MEDS: MIDODRINE HCL 5 MG TABLET PO SCH ×4 (01:59→23:19)
[2023-03-02] MEDS: PIPERACILLIN/TAZOB 2.25 GM 2.25 GM in DEXTROSE 5%-WATER - 50 ML IVPB SCH ×3 (02:03→17:18)
[2023-03-02] MEDS: BANATROL PLUS POWDER PACKET PO SCH ×4 (05:34→23:01)
[2023-03-02 09:39] LABS: BASO % 0.3 % (0-2.0); EOS % 0.9 % (0-4.5); HEMOGLOBIN 12.5 GM/dL (11.7-16.9); LYMPH % 10.9 % (8-40); MCH 29.1 pg (25.7-33.7); MCHC 32.8 g/dl (32.0-35.9); MEAN CELL VOLUME 88.8 fl (80-96); MEAN PLT VOLUME 7.5 fl (7.5-11.1); MONO % 6.9 % (3.8-10.2); PLATELET COUNT 195 10^3/uL (134-434); RBC 4.28 M/mm3 (4.00-5.60); WHITE BLOOD COUNT 15.2 K/mm3 (4.0-10.0)
[2023-03-02 09:45] LABS: INR 1.03 (0.83-1.09); PROTHROMBIN TIME (PATIENT) 11.9 SEC (9.7-13.0)
[2023-03-02 09:47] LABS: ACTIVATED PTT 20.4 SECONDS (25.2-36.5)
[2023-03-02 10:07] LABS: POTASSIUM 3.7 mmol/L (3.5-5.1)
[2023-03-02 10:09] LABS: ALBUMIN 1.4 g/dl (3.4-5.0); CALCIUM 8.3 mg/dL (8.5-10.1); MAGNESIUM 1.9 mg/dL (1.8-2.4)
[2023-03-02 10:12] LABS: CREATININE 2.6 mg/dL (0.55-1.3)
[2023-03-02 10:14] LABS: BILIRUBIN,TOTAL 0.8 mg/dL (0.2-1); TOT PROT 5.7 g/dl (6.4-8.2)
[2023-03-02] MEDS: CALCIUM ACETATE 667 MG CAPSULE (FP) PO SCH ×3 (12:54→16:38)
[2023-03-02] MEDS: AMINO ACIDS/PROTEIN HYDROLYS 30 ML LIQUID.PKT PO SCH ×3 (12:55→16:38)
[2023-03-02] MEDS: SERTRALINE HCL 50 MG TABLET (FP) PO SCH (13:27)
[2023-03-02] MEDS: FAMOTIDINE 20 MG TABLET PO SCH ×2 (13:27→23:01)
[2023-03-02] MEDS: LACTOBACILLUS ACIDOPHILUS 1 TABLET PO SCH (13:28)
[2023-03-02] MEDS: MAGNESIUM OXIDE 400 MG TABLET (FP) PO SCH ×3 (13:28→23:01)
[2023-03-02] MEDS: FERROUS SO4 325 MG TABLET (FP) PO SCH ×2 (13:28→13:41)
[2023-03-02] MEDS: VITAMIN B COMP W-C 1 EA TABLET (NEPHRO-VITE) PO SCH ×2 (13:29→13:42)
[2023-03-02] MEDS: metoPROLOL SUCCINATE 25 MG TAB.SR.24H (FP) PO SCH (14:55)
[2023-03-02] MEDS: DAPTOMYCIN 300 MG in SODIUM CHLORIDE 50 ML IVPB SCH (15:24)
[2023-03-02] MEDS ORDERED: METOPROLOL TARTRATE 5 MG/5 ML VIAL IVPUSH ONE (20:42)
[2023-03-02] MEDS: AMIODARONE HCL 200 MG TABLET PO SCH (23:21)
[2023-03-02] MEDS ORDERED: LORazepam 2 MG/ML SDV VIAL IVPUSH ONE (23:30)
[2023-03-03] MEDS: PIPERACILLIN/TAZOB 2.25 GM 2.25 GM in DEXTROSE 5%-WATER - 50 ML IVPB SCH ×3 (02:03→18:31)
[2023-03-03] MEDS: BANATROL PLUS POWDER PACKET PO SCH ×3 (05:20→23:00)
[2023-03-03] MEDS: VITAMIN B COMP W-C 1 EA TABLET (NEPHRO-VITE) PO SCH (11:46)
[2023-03-03] MEDS: MIDODRINE HCL 5 MG TABLET PO SCH ×3 (11:46→23:25)
[2023-03-03] MEDS: AMIODARONE HCL 200 MG TABLET PO SCH ×2 (11:46→23:00)
[2023-03-03] MEDS: CALCIUM ACETATE 667 MG CAPSULE (FP) PO SCH ×3 (11:47→18:07)
[2023-03-03] MEDS: metoPROLOL SUCCINATE 25 MG TAB.SR.24H (FP) PO SCH (11:47)
[2023-03-03] MEDS: LACTOBACILLUS ACIDOPHILUS 1 TABLET PO SCH (11:47)
[2023-03-03] MEDS: FERROUS SO4 325 MG TABLET (FP) PO SCH (11:47)
[2023-03-03] MEDS: SERTRALINE HCL 50 MG TABLET (FP) PO SCH (11:48)
[2023-03-03] MEDS: FAMOTIDINE 20 MG TABLET PO SCH ×2 (11:48→22:59)
[2023-03-03] MEDS: AMINO ACIDS/PROTEIN HYDROLYS 30 ML LIQUID.PKT PO SCH ×3 (11:51→18:08)
[2023-03-03] MEDS: MAGNESIUM OXIDE 400 MG TABLET (FP) PO SCH ×2 (12:45→23:00)
[2023-03-03] MEDS ORDERED: LIDOCAINE HCL 1%, 10 MG/ML (20ML VIAL) ONE (13:14)
[2023-03-03] MEDS ORDERED: SODIUM CHLORIDE 250 ML IV PRN (17:11)
[2023-03-04] MEDS: PIPERACILLIN/TAZOB 2.25 GM 2.25 GM in DEXTROSE 5%-WATER - 50 ML IVPB SCH ×3 (01:05→19:03)
[2023-03-04] MEDS ORDERED: DEXTROSE 50%-WATER - 25 GM/50 ML VIAL IVPUSH PRN (02:18)
[2023-03-04] MEDS: BANATROL PLUS POWDER PACKET PO SCH ×2 (06:54→14:18)
[2023-03-04] MEDS: CALCIUM ACETATE 667 MG CAPSULE (FP) PO SCH ×3 (08:55→17:26)
[2023-03-04] MEDS: MIDODRINE HCL 5 MG TABLET PO SCH ×2 (08:55→17:02)
[2023-03-04] MEDS: AMINO ACIDS/PROTEIN HYDROLYS 30 ML LIQUID.PKT PO SCH ×3 (08:56→17:26)
[2023-03-04] MEDS: MAGNESIUM OXIDE 400 MG TABLET (FP) PO SCH (11:43)
[2023-03-04] MEDS: metoPROLOL SUCCINATE 25 MG TAB.SR.24H (FP) PO SCH (11:43)
[2023-03-04] MEDS: LACTOBACILLUS ACIDOPHILUS 1 TABLET PO SCH (11:43)
[2023-03-04] MEDS: SERTRALINE HCL 50 MG TABLET (FP) PO SCH (11:43)
[2023-03-04] MEDS: AMIODARONE HCL 200 MG TABLET PO SCH (11:43)
[2023-03-04] MEDS: VITAMIN B COMP W-C 1 EA TABLET (NEPHRO-VITE) PO SCH (11:43)
[2023-03-04] MEDS: FERROUS SO4 325 MG TABLET (FP) PO SCH (11:43)
[2023-03-04] MEDS: FAMOTIDINE 20 MG TABLET PO SCH (11:43)
[2023-03-04] MEDS ORDERED: DEXTROSE 50%-WATER 25 GM/50 ML DISP.SYRIN IVPUSH ONE (12:00)
[2023-03-04] MEDS: DAPTOMYCIN 300 MG in SODIUM CHLORIDE 50 ML IVPB SCH (17:02)
[2023-03-05] MEDS: AMIODARONE HCL 200 MG TABLET PO SCH ×4 (01:51→21:25)
[2023-03-05] MEDS: FAMOTIDINE 20 MG TABLET PO SCH ×4 (01:51→21:25)
[2023-03-05] MEDS: BANATROL PLUS POWDER PACKET PO SCH ×5 (01:51→21:25)
[2023-03-05] MEDS: MAGNESIUM OXIDE 400 MG TABLET (FP) PO SCH ×3 (01:51→21:22)
[2023-03-05] MEDS: MIDODRINE HCL 5 MG TABLET PO SCH ×3 (01:52→16:49)
[2023-03-05] MEDS: PIPERACILLIN/TAZOB 2.25 GM 2.25 GM in DEXTROSE 5%-WATER - 50 ML IVPB SCH ×4 (04:14→17:20)
[2023-03-05] MEDS: LACTOBACILLUS ACIDOPHILUS 1 TABLET PO SCH (10:15)
[2023-03-05] MEDS: SERTRALINE HCL 50 MG TABLET (FP) PO SCH (10:15)
[2023-03-05] MEDS: FERROUS SO4 325 MG TABLET (FP) PO SCH (10:15)
[2023-03-05] MEDS: VITAMIN B COMP W-C 1 EA TABLET (NEPHRO-VITE) PO SCH (10:15)
[2023-03-05] MEDS: metoPROLOL SUCCINATE 25 MG TAB.SR.24H (FP) PO SCH (10:16)
[2023-03-05] MEDS: AMINO ACIDS/PROTEIN HYDROLYS 30 ML LIQUID.PKT PO SCH ×3 (10:16→16:39)
[2023-03-05] MEDS: CALCIUM ACETATE 667 MG CAPSULE (FP) PO SCH ×3 (10:16→16:48)
[2023-03-06] MEDS: MIDODRINE HCL 5 MG TABLET PO SCH ×2 (00:15→10:39)
[2023-03-06] MEDS: PIPERACILLIN/TAZOB 2.25 GM 2.25 GM in DEXTROSE 5%-WATER - 50 ML IVPB SCH ×2 (02:02→10:41)
[2023-03-06] MEDS: BANATROL PLUS POWDER PACKET PO SCH ×2 (05:26→14:23)
[2023-03-06] MEDS: CALCIUM ACETATE 667 MG CAPSULE (FP) PO SCH ×2 (10:39→14:21)
[2023-03-06] MEDS: metoPROLOL SUCCINATE 25 MG TAB.SR.24H (FP) PO SCH (10:39)
[2023-03-06] MEDS: AMIODARONE HCL 200 MG TABLET PO SCH (10:40)
[2023-03-06] MEDS: VITAMIN B COMP W-C 1 EA TABLET (NEPHRO-VITE) PO SCH (10:40)
[2023-03-06] MEDS: LACTOBACILLUS ACIDOPHILUS 1 TABLET PO SCH (10:40)
[2023-03-06] MEDS: SERTRALINE HCL 50 MG TABLET (FP) PO SCH (10:40)
[2023-03-06] MEDS: FAMOTIDINE 20 MG TABLET PO SCH (10:40)
[2023-03-06] MEDS: MAGNESIUM OXIDE 400 MG TABLET (FP) PO SCH (10:40)
[2023-03-06] MEDS: FERROUS SO4 325 MG TABLET (FP) PO SCH (10:41)
[2023-03-06] MEDS: AMINO ACIDS/PROTEIN HYDROLYS 30 ML LIQUID.PKT PO SCH ×2 (10:42→14:22)
[2023-03-06 14:18] VITALS: BP 135/61; PULSE 88; RESP 18; TEMP 97.9
== END 2023-03-06 18:02 | DRG 871 ==
LOC: JER 19:34 → JERBED 02-25 02:37 → J4S 02-28 19:50
PROVIDERS: ADMIT Internal Medicine; ATTEND Internal Medicine
DX: A41.59 Other Gram-negative sepsis (principal); E43 Unspecified severe protein-calorie malnutrition; L89.154 Pressure ulcer of sacral region, stage 4; N18.6 End stage renal disease; I13.2 Hypertensive heart and chronic kidney disease with heart failure and with stage 5 chronic kidney disease, or end stage renal disease; I50.22 Chronic systolic (congestive) heart failure; R64 Cachexia; Z68.1 Body mass index [BMI] 19.9 or less, adult; I47.10 Supraventricular tachycardia, unspecified; J98.11 Atelectasis; T87.44 Infection of amputation stump, left lower extremity; E78.5 Hyperlipidemia, unspecified; I44.0 Atrioventricular block, first degree; F41.8 Other specified anxiety disorders; E87.6 Hypokalemia; E11.22 Type 2 diabetes mellitus with diabetic chronic kidney disease; E11.51 Type 2 diabetes mellitus with diabetic peripheral angiopathy without gangrene; R62.7 Adult failure to thrive; Y83.8 Other surgical procedures as the cause of abnormal reaction of the patient, or of later complication, without mention of misadventure at the time of the procedure; Z99.2 Dependence on renal dialysis; Z89.511 Acquired absence of right leg below knee; Z89.512 Acquired absence of left leg below knee
CPT/HCPCS: 36415; 36430; 71045-TC-FY; 73590-TC-LT-FY; 80048; 80053; 82962; 83735; 84100; 84443; 84484; 85025; 85610; 85651; 85730; 86140; 86803; 86850; 86900; 86901; 86922; 87040; 87070; 87186; 87205; 87340; 87522; 93005; 93010; 99291; E0186; J0878; J3480; P9058; Q5106

== ENCOUNTER 2023-03-20 13:54 | Inpatient (IN) | payer OTHER ==
[2023-03-20] MEDS ORDERED: SODIUM CHLORIDE 1,000 ML IV SCH (14:15)
[2023-03-20] MEDS ORDERED: VANCOMYCIN 1,000 MG in DEXTROSE 5%-WATER - 250 ML IVPB ONE (14:18)
[2023-03-20] MEDS ORDERED: PIPERACILLIN/TAZOB 4.5 GM 4.5 GM in DEXTROSE 5%-WATER 100 ML IVPB ONE (14:18)
[2023-03-20] MEDS ORDERED: SODIUM CHLORIDE 0.9% 500 ML INFUS.BAG IV ONE ×2 (14:18→20:53)
[2023-03-20 14:42] LABS: VENOUS BASE EXCESS 2.1 mmol/L (-2-2); VENOUS O2 SATURATION 51.8 % (70-80); VENOUS PH 7.354 (7.310-7.410)
[2023-03-20] MEDS ORDERED: PIPERACILLIN/TAZOB 4.5 GM 4.5 GM/100 ML BAG IVPB ONE (14:47)
[2023-03-20 14:50] LABS: BASO % 0.5 % (0-2.0); EOS % 0.2 % (0-4.5); HEMATOCRIT 32.6 % (35.4-49); HEMOGLOBIN 10.2 GM/dL (11.7-16.9); LYMPH % 6.4 % (8-40); MCH 28.8 pg (25.7-33.7); MCHC 31.4 g/dl (32.0-35.9); MEAN CELL VOLUME 91.7 fl (80-96); MEAN PLT VOLUME 7.5 fl (7.5-11.1); MONO % 4.3 % (3.8-10.2); NEUT % 88.6 % (42.8-82.8); PLATELET COUNT 327 10^3/uL (134-434); RBC 3.56 M/mm3 (4.00-5.60); RDW 20.7 % (11.9-15.9)
[2023-03-20 15:02] LABS: POTASSIUM 3.5 mmol/L (3.5-5.1)
[2023-03-20 15:04] LABS: ALBUMIN 1.3 g/dl (3.4-5.0); CALCIUM 9.1 mg/dL (8.5-10.1)
[2023-03-20 15:05] LABS: INR 1.22 (0.83-1.09); PROTHROMBIN TIME (PATIENT) 14.1 SEC (9.7-13.0)
[2023-03-20 15:07] LABS: CREATININE 4.2 mg/dL (0.55-1.3)
[2023-03-20 15:08] LABS: ACTIVATED PTT 30.5 SECONDS (25.2-36.5)
[2023-03-20 15:09] LABS: TOT PROT 6.4 g/dl (6.4-8.2)
[2023-03-20] MEDS ORDERED: VANCOMYCIN 1 GRAM (PRE-DOCKED) 1,000 MG/250 ML BAG IVPB ONE (15:24)
[2023-03-20 15:39] LABS: ANISOCYTOSIS 1+; MACROCYTOSIS 0
[2023-03-20] MEDS: NOREPINEPHRINE BITARTRATE/D5W 8 MG/250 ML BAG IVPB SCH (21:13)
[2023-03-20] MEDS: CHLORHEXIDINE GLUCONATE 4% CLEANSER FOR DECOLONIZATION TP SCH (21:13)
[2023-03-20] MEDS: HEPARIN NA (PORCINE) 5,000 UNITS/ML 1ML VIAL SQ SCH (21:13)
[2023-03-20] MEDS ORDERED: DAPTOMYCIN 300 MG in SODIUM CHLORIDE 50 ML IVPB ONE (22:45)
[2023-03-20] MEDS: MUPIROCIN 2% TOPICAL OINTMENT FOR DECOLONIZATION NS SCH (23:50)
[2023-03-21] MEDS ORDERED: PIPERACILLIN/TAZOB 2.25 GM 2.25 GM in DEXTROSE 5%-WATER - 50 ML IVPB SCH (02:00)
[2023-03-21] MEDS: PIPERACILLIN/TAZOB 2.25 GM 2.25 GM in DEXTROSE 5%-WATER - 50 ML IVPB SCH ×4 (02:44→19:46)
[2023-03-21 07:28] LABS: HEMATOCRIT 26.5 % (35.4-49); HEMOGLOBIN 8.5 GM/dL (11.7-16.9); MCH 29.4 pg (25.7-33.7); MCHC 32.3 g/dl (32.0-35.9); MEAN PLT VOLUME 8.2 fl (7.5-11.1); PLATELET COUNT 292 10^3/uL (134-434); RBC 2.91 M/mm3 (4.00-5.60); WHITE BLOOD COUNT 19.5 K/mm3 (4.0-10.0)
[2023-03-21 07:29] LABS: INR 1.27 (0.83-1.09); PROTHROMBIN TIME (PATIENT) 14.7 SEC (9.7-13.0)
[2023-03-21 07:39] LABS: CHLORIDE 108 mmol/L (98-107); SODIUM 143 mmol/L (136-145)
[2023-03-21 07:43] LABS: CALCIUM 8.4 mg/dL (8.5-10.1)
[2023-03-21 07:44] LABS: ALBUMIN 1.1 g/dl (3.4-5.0); CO2 25 mmol/L (21-32); GLUCOSE,RANDOM 107 mg/dL (74-106)
[2023-03-21 07:45] LABS: MAGNESIUM 2.3 mg/dL (1.8-2.4)
[2023-03-21 07:46] LABS: BILIRUBIN,TOTAL 0.8 mg/dL (0.2-1); TOT PROT 5.3 g/dl (6.4-8.2)
[2023-03-21 07:47] LABS: ALK PHOS 59 U/L (45-117); CREATININE 4.1 mg/dL (0.55-1.3); PHOSPHOROUS 1.4 mg/dL (2.5-4.9); SGOT/AST 16 U/L (15-37); SGPT/ALT 10 U/L (13-61)
[2023-03-21 07:49] LABS: ANION GAP 10 mmol/L (4-13); POTASSIUM 2.8 mmol/L (3.5-5.1)
[2023-03-21 08:57] LABS: ANISOCYTOSIS 1+; MACROCYTOSIS 0
[2023-03-21] MEDS ORDERED: POTASSIUM PHOSPHATE 15 MM in DEXTROSE 5%-WATER - 250 ML IVPB ONE (09:00)
[2023-03-21] MEDS: MUPIROCIN 2% TOPICAL OINTMENT FOR DECOLONIZATION NS SCH ×2 (09:05→21:43)
[2023-03-21] MEDS: HEPARIN NA (PORCINE) 5,000 UNITS/ML 1ML VIAL SQ SCH ×2 (09:05→21:43)
[2023-03-21] MEDS: POTASSIUM CHLORIDE ORAL LIQUID 20 MEQ/15 ML PO ONE ×2 (10:39→10:43)
[2023-03-21] MEDS ORDERED: POTASSIUM CHLORIDE ORAL LIQUID 20 MEQ/15 ML PO ONE ×2 (14:07→22:45)
[2023-03-21] MEDS ORDERED: SODIUM CHLORIDE 250 ML IV PRN (14:52)
[2023-03-21] MEDS ORDERED: EPOETIN ALFA-EPBX 10,000 UNIT/ML VIAL SQ ONE (16:00)
[2023-03-21] MEDS: DAPTOMYCIN 300 MG in SODIUM CHLORIDE 50 ML IVPB SCH (18:30)
[2023-03-21 21:35] LABS: CALCIUM 8.3 mg/dL (8.5-10.1)
[2023-03-21 21:39] LABS: BLOOD UREA NITROGEN 15.7 mg/dL (7-18); CREATININE 1.7 mg/dL (0.55-1.3)
[2023-03-21] MEDS: NOREPINEPHRINE BITARTRATE/D5W 8 MG/250 ML BAG IVPB SCH (21:42)
[2023-03-21] MEDS: CHLORHEXIDINE GLUCONATE 4% CLEANSER FOR DECOLONIZATION TP SCH (21:43)
[2023-03-21] MEDS ORDERED: KCL 20 MEQ PREMIX BAG 100 ML IVPB ONE (22:45)
[2023-03-22] MEDS: PIPERACILLIN/TAZOB 2.25 GM 2.25 GM in DEXTROSE 5%-WATER - 50 ML IVPB SCH ×3 (01:02→17:10)
[2023-03-22] MEDS: NOREPINEPHRINE BITARTRATE/D5W 8 MG/250 ML BAG IVPB SCH ×3 (06:47→20:24)
[2023-03-22 07:28] LABS: HEMATOCRIT 25.7 % (35.4-49); HEMOGLOBIN 8.4 GM/dL (11.7-16.9); MCH 29.5 pg (25.7-33.7); MCHC 32.6 g/dl (32.0-35.9); MEAN CELL VOLUME 90.7 fl (80-96); MEAN PLT VOLUME 8.2 fl (7.5-11.1); PLATELET COUNT 292 10^3/uL (134-434); RBC 2.83 M/mm3 (4.00-5.60); WHITE BLOOD COUNT 20.4 K/mm3 (4.0-10.0)
[2023-03-22 07:41] LABS: POTASSIUM 3.8 mmol/L (3.5-5.1)
[2023-03-22 07:43] LABS: CALCIUM 8.1 mg/dL (8.5-10.1)
[2023-03-22 07:44] LABS: ALBUMIN 1.2 g/dl (3.4-5.0); BLOOD UREA NITROGEN 18.6 mg/dL (7-18); MAGNESIUM 1.8 mg/dL (1.8-2.4)
[2023-03-22 07:47] LABS: CREATININE 1.9 mg/dL (0.55-1.3); PHOSPHOROUS 1.5 mg/dL (2.5-4.9)
[2023-03-22 07:49] LABS: BILIRUBIN,TOTAL 0.7 mg/dL (0.2-1); TOT PROT 5.4 g/dl (6.4-8.2)
[2023-03-22 08:40] LABS: ANISOCYTOSIS 1+; MACROCYTOSIS 1+
[2023-03-22] MEDS: HEPARIN NA (PORCINE) 5,000 UNITS/ML 1ML VIAL SQ SCH ×2 (09:36→21:38)
[2023-03-22] MEDS: MUPIROCIN 2% TOPICAL OINTMENT FOR DECOLONIZATION NS SCH ×2 (09:36→21:37)
[2023-03-22] MEDS ORDERED: LACTATED RINGERS SOLUTION 1000 ML INFUS.BAG IV ONE (13:44)
[2023-03-22] MEDS ORDERED: ACETAMINOPHEN 1000 MG/100 ML BAG IVPB ONE (16:17)
[2023-03-22] MEDS: VASopressin 40 UNITS/100 ML BAG IV SCH (16:30)
[2023-03-22] MEDS: CHLORHEXIDINE GLUCONATE 4% CLEANSER FOR DECOLONIZATION TP SCH (21:38)
[2023-03-23] MEDS: PIPERACILLIN/TAZOB 2.25 GM 2.25 GM in DEXTROSE 5%-WATER - 50 ML IVPB SCH ×3 (02:48→17:30)
[2023-03-23] MEDS: NOREPINEPHRINE BITARTRATE/D5W 8 MG/250 ML BAG IVPB SCH ×2 (06:07→20:26)
[2023-03-23] MEDS: VASopressin 40 UNITS/100 ML BAG IV SCH ×3 (06:07→17:32)
[2023-03-23 06:27] LABS: HEMATOCRIT 25.8 % (35.4-49); HEMOGLOBIN 8.2 GM/dL (11.7-16.9); MCH 28.9 pg (25.7-33.7); MCHC 31.6 g/dl (32.0-35.9); MEAN CELL VOLUME 91.3 fl (80-96); MEAN PLT VOLUME 7.7 fl (7.5-11.1); PLATELET COUNT 243 10^3/uL (134-434); RBC 2.83 M/mm3 (4.00-5.60); RDW 20.5 % (11.9-15.9); WHITE BLOOD COUNT 26.3 K/mm3 (4.0-10.0)
[2023-03-23 06:45] LABS: CHLORIDE 100 mmol/L (98-107); POTASSIUM 3.5 mmol/L (3.5-5.1); SODIUM 137 mmol/L (136-145)
[2023-03-23 06:47] LABS: ALBUMIN 1.1 g/dl (3.4-5.0); ANION GAP 10 mmol/L (4-13); BLOOD UREA NITROGEN 23.5 mg/dL (7-18); CALCIUM 8.1 mg/dL (8.5-10.1); CO2 27 mmol/L (21-32); GLUCOSE,RANDOM 277 mg/dL (74-106); MAGNESIUM 1.7 mg/dL (1.8-2.4)
[2023-03-23 06:50] LABS: CREATININE 2.6 mg/dL (0.55-1.3); SGOT/AST 18 U/L (15-37); SGPT/ALT 9 U/L (13-61)
[2023-03-23 06:52] LABS: BILIRUBIN,TOTAL 0.5 mg/dL (0.2-1); TOT PROT 5.3 g/dl (6.4-8.2)
[2023-03-23 06:53] LABS: ALK PHOS 84 U/L (45-117)
[2023-03-23] MEDS ORDERED: POTASSIUM PHOSPHATE 30 MM in SODIUM CHLORIDE 250 ML IVPB ONE ×2 (07:06→09:00)
[2023-03-23] MEDS ORDERED: SODIUM CHLORIDE 250 ML IV PRN (07:35)
[2023-03-23] MEDS ORDERED: MAGNESIUM SULF 50% (8.12 MEQ/2 ML-1 GM VIAL) IVPB ONE (07:53)
[2023-03-23] MEDS ORDERED: LACTATED RINGERS SOLUTION 1000 ML INFUS.BAG IV ONE (07:55)
[2023-03-23] MEDS ORDERED: LACTATED RINGERS SOLUTION 1,000 ML/1,000 ML INFUS.BAG IV SCH ×2 (08:00)
[2023-03-23] MEDS ORDERED: MAGNESIUM 2GM/50ML STERILE WATER IVPB IVPB ONE (08:00)
[2023-03-23 09:33] LABS: ANISOCYTOSIS 1+; MACROCYTOSIS 0
[2023-03-23] MEDS: HEPARIN NA (PORCINE) 5,000 UNITS/ML 1ML VIAL SQ SCH ×2 (09:33→21:20)
[2023-03-23] MEDS: MIDODRINE HCL 5 MG TABLET PO SCH ×3 (09:34→17:30)
[2023-03-23] MEDS: MUPIROCIN 2% TOPICAL OINTMENT FOR DECOLONIZATION NS SCH ×2 (09:39→21:20)
[2023-03-23] MEDS ORDERED: morphine SULFATE 4 MG/ML VIAL ONE (14:13)
[2023-03-23] MEDS: DAPTOMYCIN 300 MG in SODIUM CHLORIDE 50 ML IVPB SCH (14:27)
[2023-03-23] MEDS ORDERED: morphine SULFATE 4 MG/ML VIAL IVPUSH ONE (14:30)
[2023-03-23] MEDS ORDERED: EPOETIN ALFA-EPBX 10,000 UNIT/ML VIAL IVPUSH ONE (15:00)
[2023-03-23] MEDS: CHLORHEXIDINE GLUCONATE 4% CLEANSER FOR DECOLONIZATION TP SCH (21:20)
[2023-03-24] MEDS: PIPERACILLIN/TAZOB 2.25 GM 2.25 GM in DEXTROSE 5%-WATER - 50 ML IVPB SCH ×3 (01:01→18:12)
[2023-03-24] MEDS: VASopressin 40 UNITS/100 ML BAG IV SCH ×2 (01:55→20:29)
[2023-03-24 07:30] LABS: HEMATOCRIT 25.5 % (35.4-49); HEMOGLOBIN 8.2 GM/dL (11.7-16.9); MCH 29.2 pg (25.7-33.7); MCHC 32.1 g/dl (32.0-35.9); MEAN CELL VOLUME 90.9 fl (80-96); MEAN PLT VOLUME 8.2 fl (7.5-11.1); PLATELET COUNT 197 10^3/uL (134-434); RDW 20.9 % (11.9-15.9); WHITE BLOOD COUNT 22.4 K/mm3 (4.0-10.0)
[2023-03-24 07:44] LABS: POTASSIUM 3.9 mmol/L (3.5-5.1)
[2023-03-24 07:46] LABS: BLOOD UREA NITROGEN 12.7 mg/dL (7-18); CALCIUM 7.9 mg/dL (8.5-10.1)
[2023-03-24 07:50] LABS: CREATININE 1.6 mg/dL (0.55-1.3); PHOSPHOROUS 1.5 mg/dL (2.5-4.9)
[2023-03-24 07:51] LABS: BILIRUBIN,TOTAL 0.4 mg/dL (0.2-1); TOT PROT 5.1 g/dl (6.4-8.2)
[2023-03-24 07:57] LABS: MAGNESIUM 1.8 mg/dL (1.8-2.4)
[2023-03-24] MEDS ORDERED: POTASSIUM PHOSPHATE 30 MM in DEXTROSE 5%-WATER - 250 ML IVPB ONE (08:04)
[2023-03-24 09:04] LABS: ANISOCYTOSIS 1+; MACROCYTOSIS 0
[2023-03-24] MEDS: HEPARIN NA (PORCINE) 5,000 UNITS/ML 1ML VIAL SQ SCH ×2 (09:39→21:26)
[2023-03-24] MEDS: MUPIROCIN 2% TOPICAL OINTMENT FOR DECOLONIZATION NS SCH ×2 (09:39→21:26)
[2023-03-24] MEDS: NOREPINEPHRINE BITARTRATE/D5W 8 MG/250 ML BAG IVPB SCH ×2 (09:39→21:26)
[2023-03-24] MEDS: MIDODRINE HCL 5 MG TABLET PO SCH ×3 (09:39→18:11)
[2023-03-24] MEDS ORDERED: ACETAMINOPHEN 1000 MG/100 ML BAG IVPB ONE ×2 (15:32)
[2023-03-24] MEDS: CHLORHEXIDINE GLUCONATE 4% CLEANSER FOR DECOLONIZATION TP SCH (21:26)
[2023-03-25] MEDS: PIPERACILLIN/TAZOB 2.25 GM 2.25 GM in DEXTROSE 5%-WATER - 50 ML IVPB SCH ×3 (02:33→17:52)
[2023-03-25 08:04] LABS: BASO % 0.4 % (0-2.0); HEMATOCRIT 27.8 % (35.4-49); HEMOGLOBIN 8.8 GM/dL (11.7-16.9); LYMPH % 6.9 % (8-40); MCHC 31.7 g/dl (32.0-35.9); MEAN CELL VOLUME 91.4 fl (80-96); MEAN PLT VOLUME 9.1 fl (7.5-11.1); NEUT % 88.7 % (42.8-82.8); PLATELET COUNT 157 10^3/uL (134-434); RBC 3.04 M/mm3 (4.00-5.60); RDW 21.4 % (11.9-15.9)
[2023-03-25 08:19] LABS: INR 1.17 (0.83-1.09); PROTHROMBIN TIME (PATIENT) 13.6 SEC (9.7-13.0)
[2023-03-25 08:21] LABS: ACTIVATED PTT 37.3 SECONDS (25.2-36.5)
[2023-03-25 08:29] LABS: POTASSIUM 4.3 mmol/L (3.5-5.1)
[2023-03-25 08:31] LABS: CALCIUM 8.2 mg/dL (8.5-10.1)
[2023-03-25 08:32] LABS: MAGNESIUM 1.9 mg/dL (1.8-2.4)
[2023-03-25 08:34] LABS: PHOSPHOROUS 2.5 mg/dL (2.5-4.9)
[2023-03-25 08:35] LABS: BLOOD UREA NITROGEN 19.8 mg/dL (7-18)
[2023-03-25 08:36] LABS: BILIRUBIN,TOTAL 0.5 mg/dL (0.2-1)
[2023-03-25 08:37] LABS: TOT PROT 5.2 g/dl (6.4-8.2)
[2023-03-25] MEDS: HEPARIN NA (PORCINE) 5,000 UNITS/ML 1ML VIAL SQ SCH ×2 (09:55→21:40)
[2023-03-25] MEDS: MIDODRINE HCL 5 MG TABLET PO SCH ×3 (09:55→17:52)
[2023-03-25] MEDS: MUPIROCIN 2% TOPICAL OINTMENT FOR DECOLONIZATION NS SCH (09:55)
[2023-03-25] MEDS: DAPTOMYCIN 300 MG in SODIUM CHLORIDE 50 ML IVPB SCH (15:15)
[2023-03-25] MEDS: VASopressin 40 UNITS/100 ML BAG IV SCH (15:15)
[2023-03-25] MEDS: AMINO ACIDS/PROTEIN HYDROLYS 30 ML LIQUID.PKT PO SCH (17:52)
[2023-03-25] MEDS: NOREPINEPHRINE BITARTRATE/D5W 8 MG/250 ML BAG IVPB SCH (21:37)
[2023-03-25] MEDS: CHLORHEXIDINE GLUCONATE 4% CLEANSER FOR DECOLONIZATION TP SCH (21:40)
[2023-03-26] MEDS: PIPERACILLIN/TAZOB 2.25 GM 2.25 GM in DEXTROSE 5%-WATER - 50 ML IVPB SCH ×3 (01:36→17:54)
[2023-03-26] MEDS: VASopressin 40 UNITS/100 ML BAG IV SCH ×3 (04:52→21:11)
[2023-03-26 07:43] LABS: INR 1.24 (0.83-1.09); PROTHROMBIN TIME (PATIENT) 14.3 SEC (9.7-13.0)
[2023-03-26 07:45] LABS: ACTIVATED PTT 40.1 SECONDS (25.2-36.5)
[2023-03-26 07:47] LABS: BASO % 0.1 % (0-2.0); EOS % 0.1 % (0-4.5); HEMATOCRIT 27.1 % (35.4-49); HEMOGLOBIN 8.5 GM/dL (11.7-16.9); LYMPH % 6.1 % (8-40); MCH 28.3 pg (25.7-33.7); MCHC 31.3 g/dl (32.0-35.9); MEAN CELL VOLUME 90.5 fl (80-96); MEAN PLT VOLUME 9.2 fl (7.5-11.1); NEUT % 89.7 % (42.8-82.8); PLATELET COUNT 127 10^3/uL (134-434); RDW 20.8 % (11.9-15.9); WHITE BLOOD COUNT 16.8 K/mm3 (4.0-10.0)
[2023-03-26 07:58] LABS: POTASSIUM 4.2 mmol/L (3.5-5.1)
[2023-03-26] MEDS ORDERED: SODIUM CHLORIDE 250 ML IV PRN (07:58)
[2023-03-26 08:06] LABS: CALCIUM 7.8 mg/dL (8.5-10.1)
[2023-03-26 08:07] LABS: BLOOD UREA NITROGEN 27.9 mg/dL (7-18); MAGNESIUM 2.1 mg/dL (1.8-2.4)
[2023-03-26 08:09] LABS: CREATININE 2.3 mg/dL (0.55-1.3); PHOSPHOROUS 2.2 mg/dL (2.5-4.9)
[2023-03-26 08:11] LABS: BILIRUBIN,TOTAL 0.6 mg/dL (0.2-1); TOT PROT 5.2 g/dl (6.4-8.2)
[2023-03-26] MEDS ORDERED: EPOETIN ALFA-EPBX 10,000 UNIT/ML VIAL IVPUSH ONE (09:00)
[2023-03-26] MEDS: HEPARIN NA (PORCINE) 5,000 UNITS/ML 1ML VIAL SQ SCH ×2 (10:27→21:11)
[2023-03-26] MEDS: AMINO ACIDS/PROTEIN HYDROLYS 30 ML LIQUID.PKT PO SCH ×2 (10:27→17:54)
[2023-03-26] MEDS: MIDODRINE HCL 5 MG TABLET PO SCH ×3 (10:27→17:53)
[2023-03-26] MEDS ORDERED: DEXTROSE 50%-WATER 25 GM/50 ML DISP.SYRIN ONE (17:23)
[2023-03-26] MEDS ORDERED: DEXTROSE 50%-WATER 25 GM/50 ML DISP.SYRIN IVPUSH ONE (17:31)
[2023-03-26] MEDS: AMINO ACIDS 4.25%/D5W 1,000 ML IV SCH (19:19)
[2023-03-26] MEDS: CHLORHEXIDINE GLUCONATE 4% CLEANSER FOR DECOLONIZATION TP SCH (21:11)
[2023-03-27] MEDS: PIPERACILLIN/TAZOB 2.25 GM 2.25 GM in DEXTROSE 5%-WATER - 50 ML IVPB SCH ×3 (01:31→17:25)
[2023-03-27] MEDS: NOREPINEPHRINE BITARTRATE/D5W 8 MG/250 ML BAG IVPB SCH ×2 (06:40→20:19)
[2023-03-27 07:34] LABS: HEMATOCRIT 28.6 % (35.4-49); HEMOGLOBIN 8.9 GM/dL (11.7-16.9); LYMPH % 12.6 % (8-40); MCH 28.8 pg (25.7-33.7); MEAN CELL VOLUME 92.7 fl (80-96); MEAN PLT VOLUME 9.4 fl (7.5-11.1); MONO % 2.7 % (3.8-10.2); NEUT % 84.7 % (42.8-82.8); PLATELET COUNT 122 10^3/uL (134-434); RBC 3.08 M/mm3 (4.00-5.60); RDW 21.4 % (11.9-15.9); WHITE BLOOD COUNT 17.4 K/mm3 (4.0-10.0)
[2023-03-27 07:35] LABS: INR 1.18 (0.83-1.09); PROTHROMBIN TIME (PATIENT) 13.7 SEC (9.7-13.0)
[2023-03-27 07:39] LABS: ACTIVATED PTT 41.6 SECONDS (25.2-36.5)
[2023-03-27 07:53] LABS: POTASSIUM 4.1 mmol/L (3.5-5.1)
[2023-03-27 07:58] LABS: CALCIUM 8.1 mg/dL (8.5-10.1); MAGNESIUM 1.8 mg/dL (1.8-2.4)
[2023-03-27 08:01] LABS: CREATININE 2.2 mg/dL (0.55-1.3)
[2023-03-27 08:02] LABS: BILIRUBIN,TOTAL 0.6 mg/dL (0.2-1); TOT PROT 5.5 g/dl (6.4-8.2)
[2023-03-27] MEDS ORDERED: POTASSIUM CHLORIDE ORAL LIQUID 20 MEQ/15 ML PO ONE (10:00)
[2023-03-27] MEDS: MIDODRINE HCL 5 MG TABLET PO SCH ×3 (11:34→20:19)
[2023-03-27] MEDS: HEPARIN NA (PORCINE) 5,000 UNITS/ML 1ML VIAL SQ SCH ×2 (11:35→22:02)
[2023-03-27] MEDS: AMINO ACIDS/PROTEIN HYDROLYS 30 ML LIQUID.PKT PO SCH ×2 (11:35→17:25)
[2023-03-27] MEDS: DAPTOMYCIN 300 MG in SODIUM CHLORIDE 50 ML IVPB SCH (15:17)
[2023-03-27] MEDS: VASopressin 40 UNITS/100 ML BAG IV SCH (17:25)
[2023-03-27] MEDS: AMINO ACIDS 4.25%/D5W 1,000 ML IV SCH (20:19)
[2023-03-27] MEDS: CHLORHEXIDINE GLUCONATE 4% CLEANSER FOR DECOLONIZATION TP SCH (21:00)
[2023-03-27 23:40] LABS: VENOUS BASE EXCESS -4.3 mmol/L (-2-2); VENOUS O2 SATURATION 96.9 % (70-80); VENOUS PCO2 64.6 mmHg (38-52)
[2023-03-27 23:41] LABS: BASO % 0.1 % (0-2.0); EOS % 0.1 % (0-4.5); HEMATOCRIT 24.2 % (35.4-49); HEMOGLOBIN 7.3 GM/dL (11.7-16.9); LYMPH % 2.4 % (8-40); MCH 28.2 pg (25.7-33.7); MCHC 30.2 g/dl (32.0-35.9); MEAN CELL VOLUME 93.5 fl (80-96); MEAN PLT VOLUME 9.2 fl (7.5-11.1); MONO % 2.3 % (3.8-10.2); NEUT % 95.1 % (42.8-82.8); PLATELET COUNT 91 10^3/uL (134-434); RBC 2.59 M/mm3 (4.00-5.60); RDW 21.8 % (11.9-15.9); WHITE BLOOD COUNT 19.5 K/mm3 (4.0-10.0)
[2023-03-27 23:42] LABS: VENOUS PH 7.185 (7.310-7.410)
[2023-03-28] LABS: CALCIUM 7.5 mg/dL (8.5-10.1); POTASSIUM 3.1 mmol/L (3.5-5.1)
[2023-03-28 00:02] LABS: ALBUMIN 0.8 g/dl (3.4-5.0); BLOOD UREA NITROGEN 35.1 mg/dL (7-18); MAGNESIUM 1.7 mg/dL (1.8-2.4)
[2023-03-28 00:05] LABS: CREATININE 2.2 mg/dL (0.55-1.3)
[2023-03-28 00:07] LABS: BILIRUBIN,TOTAL 0.3 mg/dL (0.2-1); TOT PROT 4.7 g/dl (6.4-8.2)
[2023-03-28] MEDS ORDERED: SODIUM CHLORIDE 250 ML IV PRN (00:21)
[2023-03-28] MEDS ORDERED: MAGNESIUM 1GM/D5W - 1 GM/100 ML IVPB IVPB ONE (00:25)
[2023-03-28] MEDS ORDERED: KCL 10 MEQ IVPB 10 MEQ/100 ML INFUS.BAG IVPB SCH (00:45)
[2023-03-28] MEDS: PIPERACILLIN/TAZOB 2.25 GM 2.25 GM in DEXTROSE 5%-WATER - 50 ML IVPB SCH ×2 (02:10→14:55)
[2023-03-28 04:06] LABS: ANISOCYTOSIS 1+; MACROCYTOSIS 0; OVALOCYTE 2+; TARGET CELLS 1+
[2023-03-28 06:48] LABS: ARTERIAL BLD GAS O2 SATURATION 97.6 % (95-98); ARTERIAL BLOOD GAS BASE EXCESS -2.2 mmol/L (-2-2); ARTERIAL BLOOD GAS PO2 116.8 mmHg (80-100); ARTERIAL BLOOD GAS pH 7.264 (7.350-7.450)
[2023-03-28 06:51] LABS: VENT MODE S/T; VENT RATE 16
[2023-03-28 06:58] LABS: HEMATOCRIT 29.6 % (35.4-49); HEMOGLOBIN 9.3 GM/dL (11.7-16.9); MCH 28.7 pg (25.7-33.7); MCHC 31.3 g/dl (32.0-35.9); MEAN CELL VOLUME 91.5 fl (80-96); MEAN PLT VOLUME 9.2 fl (7.5-11.1); PLATELET COUNT 84 10^3/uL (134-434); RBC 3.24 M/mm3 (4.00-5.60); RDW 18.7 % (11.9-15.9); WHITE BLOOD COUNT 24.1 K/mm3 (4.0-10.0)
[2023-03-28 07:11] LABS: INR 1.03 (0.83-1.09)
[2023-03-28 07:13] LABS: ACTIVATED PTT 42.1 SECONDS (25.2-36.5)
[2023-03-28 07:17] LABS: POTASSIUM 3.1 mmol/L (3.5-5.1)
[2023-03-28 07:31] LABS: ALBUMIN 0.9 g/dl (3.4-5.0); BLOOD UREA NITROGEN 37.6 mg/dL (7-18)
[2023-03-28 07:34] LABS: CREATININE 2.2 mg/dL (0.55-1.3); PHOSPHOROUS 2.5 mg/dL (2.5-4.9)
[2023-03-28 07:35] LABS: BILIRUBIN,TOTAL 0.4 mg/dL (0.2-1); TOT PROT 4.9 g/dl (6.4-8.2)
[2023-03-28 09:11] LABS: ANISOCYTOSIS 0; MACROCYTOSIS 0
[2023-03-28] MEDS: KCL 20 MEQ PREMIX BAG 20 MEQ/100 ML INFUS.BAG IVPB SCH ×3 (09:15→15:07)
[2023-03-28] MEDS: MIDODRINE HCL 5 MG TABLET PO SCH ×2 (10:33→14:58)
[2023-03-28] MEDS: HEPARIN NA (PORCINE) 5,000 UNITS/ML 1ML VIAL SQ SCH ×2 (14:52→21:12)
[2023-03-28] MEDS: NOREPINEPHRINE BITARTRATE/D5W 8 MG/250 ML BAG IVPB SCH (19:56)
[2023-03-28] MEDS: VASopressin 40 UNITS/100 ML BAG IV SCH (21:15)
[2023-03-28] MEDS ORDERED: SMOFLIPID - FAT EMUL/SOY/MCT/OLIV/FISH OIL 250 ML EMULSION IV SCH (22:00)
[2023-03-28] MEDS: CHLORHEXIDINE GLUCONATE 4% CLEANSER FOR DECOLONIZATION TP SCH (22:35)
[2023-03-28] MEDS: FAT EMUL/SOY/MCT/OLIV/FISH OIL 250 ML IV SCH (22:35)
[2023-03-28] MEDS: AMINO ACIDS 4.25%/D5W 1,000 ML IV SCH (22:36)
[2023-03-29] MEDS: PIPERACILLIN/TAZOB 2.25 GM 2.25 GM in DEXTROSE 5%-WATER - 50 ML IVPB SCH ×4 (01:48→17:13)
[2023-03-29] MEDS: AMINO ACIDS 4.25%/D5W 1,000 ML IV SCH ×3 (01:50→21:59)
[2023-03-29] MEDS: NOREPINEPHRINE BITARTRATE/D5W 8 MG/250 ML BAG IVPB SCH ×2 (06:55→22:00)
[2023-03-29 07:23] LABS: HEMATOCRIT 28.1 % (35.4-49); HEMOGLOBIN 9.1 GM/dL (11.7-16.9); MCH 29.2 pg (25.7-33.7); MCHC 32.4 g/dl (32.0-35.9); MEAN CELL VOLUME 90.2 fl (80-96); MEAN PLT VOLUME 9.3 fl (7.5-11.1); RBC 3.12 M/mm3 (4.00-5.60); RDW 18.3 % (11.9-15.9); WHITE BLOOD COUNT 20.8 K/mm3 (4.0-10.0)
[2023-03-29 07:27] LABS: PLATELET COUNT 16 10^3/uL (134-434)
[2023-03-29 07:40] LABS: INR 1.13 (0.83-1.09); PROTHROMBIN TIME (PATIENT) 13.1 SEC (9.7-13.0)
[2023-03-29 07:41] LABS: CHLORIDE 103 mmol/L (98-107); POTASSIUM 3.9 mmol/L (3.5-5.1); SODIUM 139 mmol/L (136-145)
[2023-03-29 07:43] LABS: ACTIVATED PTT 32.4 SECONDS (25.2-36.5)
[2023-03-29 07:44] LABS: CALCIUM 7.7 mg/dL (8.5-10.1)
[2023-03-29 07:45] LABS: ALBUMIN 0.9 g/dl (3.4-5.0); ANION GAP 9 mmol/L (4-13); BLOOD UREA NITROGEN 24.1 mg/dL (7-18); CO2 27 mmol/L (21-32); GLUCOSE,RANDOM 181 mg/dL (74-106); MAGNESIUM 1.7 mg/dL (1.8-2.4)
[2023-03-29 07:47] LABS: CREATININE 1.5 mg/dL (0.55-1.3); SGOT/AST 18 U/L (15-37); SGPT/ALT 9 U/L (13-61)
[2023-03-29 07:49] LABS: BILIRUBIN,TOTAL 0.4 mg/dL (0.2-1); TOT PROT 4.9 g/dl (6.4-8.2)
[2023-03-29 07:50] LABS: ALK PHOS 98 U/L (45-117)
[2023-03-29] MEDS ORDERED: MAGNESIUM 1GM/D5W - 1 GM/100 ML IVPB IVPB ONE (08:07)
[2023-03-29 08:08] LABS: PHOSPHOROUS 0.8 mg/dL (2.5-4.9)
[2023-03-29 09:00] LABS: ANISOCYTOSIS 1+; MACROCYTOSIS 0
[2023-03-29] MEDS ORDERED: SODIUM PHOSPHATE IVPB ONE (10:15)
[2023-03-29] MEDS ORDERED: WATER IVPB ONE (10:15)
[2023-03-29] MEDS ORDERED: DEXTROSE IVPB ONE (10:15)
[2023-03-29] MEDS: MIDODRINE HCL 5 MG TABLET PO SCH ×4 (11:53→17:13)
[2023-03-29] MEDS: AMINO ACIDS/PROTEIN HYDROLYS 30 ML LIQUID.PKT PO SCH ×2 (11:54→18:20)
[2023-03-29] MEDS: DAPTOMYCIN 300 MG in SODIUM CHLORIDE 50 ML IVPB SCH (14:54)
[2023-03-29] MEDS ORDERED: INSULIN (NOVOLOG) ASPART 100 UNITS/ML 10ML VIAL ONE (17:05)
[2023-03-29] MEDS: VASopressin 40 UNITS/100 ML BAG IV SCH (17:12)
[2023-03-29] MEDS: CHLORHEXIDINE GLUCONATE 4% CLEANSER FOR DECOLONIZATION TP SCH (21:56)
[2023-03-29] MEDS: FAT EMUL/SOY/MCT/OLIV/FISH OIL 250 ML IV SCH (22:06)
[2023-03-29 22:29] LABS: CHLORIDE 100 mmol/L (98-107); SODIUM 135 mmol/L (136-145)
[2023-03-29 22:31] LABS: CALCIUM 7.5 mg/dL (8.5-10.1); CO2 27 mmol/L (21-32); MAGNESIUM 2.1 mg/dL (1.8-2.4)
[2023-03-29 22:34] LABS: CREATININE 1.7 mg/dL (0.55-1.3); GLUCOSE,RANDOM 174 mg/dL (74-106); PHOSPHOROUS 3.5 mg/dL (2.5-4.9); SGOT/AST 12 U/L (15-37); SGPT/ALT 9 U/L (13-61)
[2023-03-29 22:35] LABS: BILIRUBIN,TOTAL 0.5 mg/dL (0.2-1)
[2023-03-29 22:37] LABS: ALK PHOS 91 U/L (45-117); TOT PROT 4.9 g/dl (6.4-8.2)
[2023-03-29 22:41] LABS: ANION GAP 8 mmol/L (4-13); POTASSIUM 2.8 mmol/L (3.5-5.1)
[2023-03-29] MEDS: KCL 20 MEQ PREMIX BAG 20 MEQ/100 ML INFUS.BAG IVPB SCH ×2 (22:45→23:45)
[2023-03-30] MEDS: KCL 20 MEQ PREMIX BAG 20 MEQ/100 ML INFUS.BAG IVPB SCH (00:45)
[2023-03-30] MEDS: PIPERACILLIN/TAZOB 2.25 GM 2.25 GM in DEXTROSE 5%-WATER - 50 ML IVPB SCH ×3 (01:32→18:18)
[2023-03-30] MEDS: NOREPINEPHRINE BITARTRATE/D5W 8 MG/250 ML BAG IVPB SCH (01:33)
[2023-03-30 06:50] LABS: ARTERIAL BLD GAS O2 SATURATION 96.7 % (95-98); ARTERIAL BLOOD GAS BASE EXCESS -0.7 mmol/L (-2-2); ARTERIAL BLOOD GAS PO2 88.9 mmHg (80-100); ARTERIAL BLOOD GAS pH 7.391 (7.350-7.450)
[2023-03-30 06:51] LABS: ALLENS TEST POSITIVE
[2023-03-30 06:52] LABS: PT'S TEMP 98.8; VENT MODE S/T; VENT RATE 16
[2023-03-30 07:03] LABS: HEMATOCRIT 25.9 % (35.4-49); HEMOGLOBIN 8.3 GM/dL (11.7-16.9); MCH 28.8 pg (25.7-33.7); MCHC 32.2 g/dl (32.0-35.9); MEAN CELL VOLUME 89.4 fl (80-96); MEAN PLT VOLUME 10.4 fl (7.5-11.1); PLATELET COUNT 66 10^3/uL (134-434); RDW 18.1 % (11.9-15.9); WHITE BLOOD COUNT 20.6 K/mm3 (4.0-10.0)
[2023-03-30 07:35] LABS: POTASSIUM 3.4 mmol/L (3.5-5.1)
[2023-03-30 07:41] LABS: BLOOD UREA NITROGEN 32.2 mg/dL (7-18); CALCIUM 7.3 mg/dL (8.5-10.1)
[2023-03-30 07:44] LABS: BILIRUBIN,TOTAL 0.6 mg/dL (0.2-1); CREATININE 1.7 mg/dL (0.55-1.3); MAGNESIUM 1.7 mg/dL (1.8-2.4); PHOSPHOROUS 2.6 mg/dL (2.5-4.9); TOT PROT 4.8 g/dl (6.4-8.2)
[2023-03-30] MEDS ORDERED: MAGNESIUM SULF 50% (8.12 MEQ/2 ML-1 GM VIAL) IVPB ONE (08:59)
[2023-03-30] MEDS: VASopressin 40 UNITS/100 ML BAG IV SCH ×2 (09:00→16:00)
[2023-03-30] MEDS: AMINO ACIDS/PROTEIN HYDROLYS 30 ML LIQUID.PKT PO SCH (09:00)
[2023-03-30 09:33] LABS: ANISOCYTOSIS 0; HELMET CELLS 0; HOWELL-JOLLY BODIES 0; MACROCYTOSIS 0; OVALOCYTE 0; ROULEAU 0; SICKELED CELLS 0; TARGET CELLS 0; TEAR DROP CELLS 0; TOXIC GRANULATION 0
[2023-03-30] MEDS ORDERED: SODIUM CHLORIDE 250 ML IV PRN (10:00)
[2023-03-30] MEDS ORDERED: EPOETIN ALFA-EPBX 10,000 UNIT/ML VIAL IVPUSH ONE (10:00)
[2023-03-30] MEDS: MIDODRINE HCL 5 MG TABLET PO SCH ×3 (11:00→18:18)
[2023-03-30 14:38] VITALS: BMI 14.6
[2023-03-30] MEDS: AMINO ACIDS 4.25%/D5W 1,000 ML IV SCH (18:31)
[2023-03-30] MEDS: FAT EMUL/SOY/MCT/OLIV/FISH OIL 250 ML IV SCH (21:18)
[2023-03-30] MEDS: CHLORHEXIDINE GLUCONATE 4% CLEANSER FOR DECOLONIZATION TP SCH (21:18)
[2023-03-30] MEDS: BACITRACIN ZINC 15 GM TUBE TOPICAL OINTMENT TP SCH (21:19)
[2023-03-31] MEDS: PIPERACILLIN/TAZOB 2.25 GM 2.25 GM in DEXTROSE 5%-WATER - 50 ML IVPB SCH ×3 (01:07→18:19)
[2023-03-31] MEDS: NOREPINEPHRINE BITARTRATE/D5W 8 MG/250 ML BAG IVPB SCH ×3 (03:00→21:23)
[2023-03-31 07:03] LABS: HEMATOCRIT 27.1 % (35.4-49); HEMOGLOBIN 8.9 GM/dL (11.7-16.9); MCH 29.8 pg (25.7-33.7); MCHC 32.9 g/dl (32.0-35.9); MEAN CELL VOLUME 90.6 fl (80-96); PLATELET COUNT 63 10^3/uL (134-434); RBC 2.99 M/mm3 (4.00-5.60); RDW 18.1 % (11.9-15.9); WHITE BLOOD COUNT 20.7 K/mm3 (4.0-10.0)
[2023-03-31 07:14] LABS: CHLORIDE 99 mmol/L (98-107); SODIUM 137 mmol/L (136-145)
[2023-03-31 07:19] LABS: CALCIUM 7.3 mg/dL (8.5-10.1); GLUCOSE,RANDOM 131 mg/dL (74-106)
[2023-03-31 07:20] LABS: BLOOD UREA NITROGEN 21.4 mg/dL (7-18); CO2 29 mmol/L (21-32); MAGNESIUM 1.9 mg/dL (1.8-2.4)
[2023-03-31 07:22] LABS: CREATININE 1.3 mg/dL (0.55-1.3); SGOT/AST 33 U/L (15-37)
[2023-03-31 07:23] LABS: PHOSPHOROUS 1.7 mg/dL (2.5-4.9); SGPT/ALT 14 U/L (13-61)
[2023-03-31 07:25] LABS: BILIRUBIN,TOTAL 0.6 mg/dL (0.2-1); TOT PROT 4.8 g/dl (6.4-8.2)
[2023-03-31 07:46] LABS: ALK PHOS 127 U/L (45-117); ANION GAP 10 mmol/L (4-13); POTASSIUM 2.9 mmol/L (3.5-5.1)
[2023-03-31 08:36] LABS: ANISOCYTOSIS 1+; MACROCYTOSIS 0
[2023-03-31] MEDS: MIDODRINE HCL 5 MG TABLET PO SCH ×3 (09:27→18:06)
[2023-03-31] MEDS ORDERED: POTASSIUM PHOSPHATE 30 MM in SODIUM CHLORIDE 250 ML IVPB ONE (09:30)
[2023-03-31] MEDS: BACITRACIN ZINC 15 GM TUBE TOPICAL OINTMENT TP SCH ×2 (11:00→21:24)
[2023-03-31] MEDS ORDERED: morphine CARPU-JECT 4 MG/1 ML DISP.SYRIN IVPUSH ONE (15:12)
[2023-03-31] MEDS ORDERED: morphine SULFATE 4 MG/ML VIAL IVPUSH PRN (15:13)
[2023-03-31] MEDS: DAPTOMYCIN 300 MG in SODIUM CHLORIDE 50 ML IVPB SCH (17:00)
[2023-03-31] MEDS ORDERED: VASopressin 20 UNITS/ML VIAL IV ONE (18:15)
[2023-03-31] MEDS: VASopressin 40 UNITS/100 ML BAG IV SCH (18:19)
[2023-03-31] MEDS: AMINO ACIDS 4.25%/D5W 1,000 ML IV SCH ×2 (18:21→21:00)
[2023-03-31] MEDS: KCL 20 MEQ PREMIX BAG 20 MEQ/100 ML INFUS.BAG IVPB SCH ×2 (19:45→21:22)
[2023-03-31] MEDS: FAT EMUL/SOY/MCT/OLIV/FISH OIL 250 ML IV SCH (21:24)
[2023-03-31] MEDS: CHLORHEXIDINE GLUCONATE 4% CLEANSER FOR DECOLONIZATION TP SCH (21:24)
[2023-04-01] MEDS: PIPERACILLIN/TAZOB 2.25 GM 2.25 GM in DEXTROSE 5%-WATER - 50 ML IVPB SCH ×3 (01:31→17:21)
[2023-04-01 05:47] LABS: ARTERIAL BLD GAS O2 SATURATION 87.2 % (95-98); ARTERIAL BLOOD GAS BASE EXCESS -3.7 mmol/L (-2-2); ARTERIAL BLOOD GAS PO2 65.9 mmHg (80-100)
[2023-04-01 06:16] LABS: VENT MODE S/T
[2023-04-01 06:17] LABS: ARTERIAL BLOOD GAS pH 7.186 (7.350-7.450)
[2023-04-01 07:10] LABS: HEMATOCRIT 26.8 % (35.4-49); HEMOGLOBIN 8.5 GM/dL (11.7-16.9); MCH 29.3 pg (25.7-33.7); MCHC 31.8 g/dl (32.0-35.9); MEAN CELL VOLUME 92.2 fl (80-96); MEAN PLT VOLUME 10.4 fl (7.5-11.1); PLATELET COUNT 83 10^3/uL (134-434); RBC 2.91 M/mm3 (4.00-5.60); RDW 18.4 % (11.9-15.9); WHITE BLOOD COUNT 21.9 K/mm3 (4.0-10.0)
[2023-04-01 07:17] LABS: INR 1.07 (0.83-1.09); PROTHROMBIN TIME (PATIENT) 12.4 SEC (9.7-13.0)
[2023-04-01 07:20] LABS: ACTIVATED PTT 35.7 SECONDS (25.2-36.5)
[2023-04-01 07:27] LABS: POTASSIUM 4.1 mmol/L (3.5-5.1)
[2023-04-01 07:34] LABS: CALCIUM 7.7 mg/dL (8.5-10.1)
[2023-04-01 07:35] LABS: ALBUMIN 0.9 g/dl (3.4-5.0); BLOOD UREA NITROGEN 33.4 mg/dL (7-18); MAGNESIUM 1.9 mg/dL (1.8-2.4)
[2023-04-01 07:38] LABS: CREATININE 1.5 mg/dL (0.55-1.3); PHOSPHOROUS 3.9 mg/dL (2.5-4.9)
[2023-04-01 07:40] LABS: BILIRUBIN,TOTAL 0.5 mg/dL (0.2-1); TOT PROT 4.9 g/dl (6.4-8.2)
[2023-04-01 08:41] LABS: ANISOCYTOSIS 1+; MACROCYTOSIS 0
[2023-04-01] MEDS: BACITRACIN ZINC 15 GM TUBE TOPICAL OINTMENT TP SCH ×2 (09:50→21:13)
[2023-04-01] MEDS: MIDODRINE HCL 5 MG TABLET PO SCH ×3 (09:50→18:41)
[2023-04-01 14:49] LABS: ARTERIAL BLD GAS O2 SATURATION 89.9 % (95-98); ARTERIAL BLOOD GAS PO2 59.8 mmHg (80-100); ARTERIAL BLOOD GAS pH 7.357 (7.350-7.450)
[2023-04-01 14:50] LABS: VENT MODE ST; VENT RATE 20
[2023-04-01] MEDS: AMINO ACIDS 4.25%/D5W 1,000 ML IV SCH (17:22)
[2023-04-01] MEDS: VASopressin 40 UNITS/100 ML BAG IV SCH (17:23)
[2023-04-01] MEDS: NOREPINEPHRINE BITARTRATE/D5W 8 MG/250 ML BAG IVPB SCH ×2 (17:39→21:10)
[2023-04-01] MEDS: CHLORHEXIDINE GLUCONATE 4% CLEANSER FOR DECOLONIZATION TP SCH (21:13)
[2023-04-01] MEDS: FAT EMUL/SOY/MCT/OLIV/FISH OIL 250 ML IV SCH (21:13)
[2023-04-02] MEDS: PIPERACILLIN/TAZOB 2.25 GM 2.25 GM in DEXTROSE 5%-WATER - 50 ML IVPB SCH ×3 (01:05→17:26)
[2023-04-02] MEDS: NOREPINEPHRINE BITARTRATE/D5W 8 MG/250 ML BAG IVPB SCH ×2 (02:37→09:40)
[2023-04-02 07:00] LABS: ARTERIAL BLD GAS O2 SATURATION 69.7 % (95-98); ARTERIAL BLOOD GAS BASE EXCESS -2.4 mmol/L (-2-2); ARTERIAL BLOOD GAS pH 7.328 (7.350-7.450)
[2023-04-02 07:04] LABS: ALLENS TEST POSITIVE; ARTERIAL BLOOD GAS PO2 39.2 mmHg (80-100)
[2023-04-02 07:05] LABS: VENT RATE 20
[2023-04-02 07:33] LABS: HEMATOCRIT 25.9 % (35.4-49); HEMOGLOBIN 8.4 GM/dL (11.7-16.9); MCH 29.4 pg (25.7-33.7); MCHC 32.4 g/dl (32.0-35.9); MEAN CELL VOLUME 90.7 fl (80-96); MEAN PLT VOLUME 11.1 fl (7.5-11.1); PLATELET COUNT 58 10^3/uL (134-434); RBC 2.85 M/mm3 (4.00-5.60); RDW 18.3 % (11.9-15.9); WHITE BLOOD COUNT 21.1 K/mm3 (4.0-10.0)
[2023-04-02 08:11] LABS: POTASSIUM 3.3 mmol/L (3.5-5.1)
[2023-04-02 08:19] LABS: BLOOD UREA NITROGEN 42.6 mg/dL (7-18); CALCIUM 7.9 mg/dL (8.5-10.1)
[2023-04-02 08:20] LABS: ALBUMIN 0.7 g/dl (3.4-5.0); MAGNESIUM 2.1 mg/dL (1.8-2.4); TOT PROT 4.6 g/dl (6.4-8.2)
[2023-04-02 08:21] LABS: BILIRUBIN,TOTAL 0.7 mg/dL (0.2-1)
[2023-04-02 08:22] LABS: CREATININE 1.8 mg/dL (0.55-1.3); PHOSPHOROUS 3.2 mg/dL (2.5-4.9)
[2023-04-02 08:31] LABS: INR 1.08 (0.83-1.09); PROTHROMBIN TIME (PATIENT) 12.5 SEC (9.7-13.0)
[2023-04-02 08:34] LABS: ACTIVATED PTT 34.2 SECONDS (25.2-36.5)
[2023-04-02 09:32] LABS: ANISOCYTOSIS 2+; MACROCYTOSIS 1+; OVALOCYTE 1+; TARGET CELLS 1+; TOXIC GRANULATION 1+
[2023-04-02] MEDS: MIDODRINE HCL 5 MG TABLET PO SCH ×4 (09:37→17:42)
[2023-04-02] MEDS: BACITRACIN ZINC 15 GM TUBE TOPICAL OINTMENT TP SCH ×2 (09:38→22:00)
[2023-04-02 09:44] LABS: PLATELET ESTIMATE DECREASED
[2023-04-02] MEDS: VASopressin 40 UNITS/100 ML BAG IV SCH ×3 (12:51→21:40)
[2023-04-02] MEDS ORDERED: SODIUM CHLORIDE 250 ML IV PRN (17:08)
[2023-04-02] MEDS ORDERED: ALBUMIN HUMAN 25% 12.5 GM/50 ML VIAL IV SCH (17:15)
[2023-04-02] MEDS: DAPTOMYCIN 300 MG in SODIUM CHLORIDE 50 ML IVPB SCH (17:26)
[2023-04-02] MEDS: NOREPINEPHRINE 0.9 % NACL 8 MG/250 ML BAG IVPB SCH (21:38)
[2023-04-02] MEDS: AMINO ACIDS 4.25%/D5W 1,000 ML IV SCH (21:41)
[2023-04-02] MEDS: FAT EMUL/SOY/MCT/OLIV/FISH OIL 250 ML IV SCH (21:59)
[2023-04-02] MEDS: CHLORHEXIDINE GLUCONATE 4% CLEANSER FOR DECOLONIZATION TP SCH (22:00)
[2023-04-03] MEDS: PIPERACILLIN/TAZOB 2.25 GM 2.25 GM in DEXTROSE 5%-WATER - 50 ML IVPB SCH ×3 (03:38→18:21)
[2023-04-03] MEDS: VASopressin 40 UNITS/100 ML BAG IV SCH ×2 (03:39→23:04)
[2023-04-03] MEDS: NOREPINEPHRINE 0.9 % NACL 8 MG/250 ML BAG IVPB SCH ×2 (03:40→21:14)
[2023-04-03] MEDS: MIDODRINE HCL 5 MG TABLET PO SCH ×3 (10:16→17:59)
[2023-04-03] MEDS: BACITRACIN ZINC 15 GM TUBE TOPICAL OINTMENT TP SCH ×2 (10:16→21:13)
[2023-04-03 10:58] LABS: INR 1.25 (0.83-1.09); PROTHROMBIN TIME (PATIENT) 14.5 SEC (9.7-13.0)
[2023-04-03 11:00] LABS: ACTIVATED PTT 35.8 SECONDS (25.2-36.5)
[2023-04-03 11:02] LABS: MCHC 31.3 g/dl (32.0-35.9); RDW 19.1 % (11.9-15.9); WHITE BLOOD COUNT 13.7 K/mm3 (4.0-10.0)
[2023-04-03 11:04] LABS: HEMATOCRIT 21.1 % (35.4-49); MEAN CELL VOLUME 92.6 fl (80-96); MEAN PLT VOLUME 10.7 fl (7.5-11.1); PLATELET COUNT 77 10^3/uL (134-434); RBC 2.27 M/mm3 (4.00-5.60)
[2023-04-03 11:09] LABS: HEMOGLOBIN 6.6 GM/dL (11.7-16.9)
[2023-04-03 11:10] LABS: BLOOD UREA NITROGEN 34.1 mg/dL (7-18); CALCIUM 8.6 mg/dL (8.5-10.1)
[2023-04-03 11:13] LABS: PHOSPHOROUS 2.8 mg/dL (2.5-4.9)
[2023-04-03 11:14] LABS: CREATININE 1.5 mg/dL (0.55-1.3)
[2023-04-03 11:15] LABS: BILIRUBIN,TOTAL 1.2 mg/dL (0.2-1); TOT PROT 4.6 g/dl (6.4-8.2)
[2023-04-03 11:17] LABS: ALBUMIN 1.3 g/dl (3.4-5.0)
[2023-04-03 12:30] LABS: ANISOCYTOSIS 0; HELMET CELLS 0; HOWELL-JOLLY BODIES 0; MACROCYTOSIS 0; OVALOCYTE 0; ROULEAU 0; SICKELED CELLS 0; TARGET CELLS 0; TEAR DROP CELLS 0; TOXIC GRANULATION 0
[2023-04-03] MEDS: AMINO ACIDS 4.25%/D5W 1,000 ML IV SCH (17:58)
[2023-04-03] MEDS: CHLORHEXIDINE GLUCONATE 4% CLEANSER FOR DECOLONIZATION TP SCH (21:19)
[2023-04-03] MEDS: FAT EMUL/SOY/MCT/OLIV/FISH OIL 250 ML IV SCH (22:01)
[2023-04-04] MEDS: PIPERACILLIN/TAZOB 2.25 GM 2.25 GM in DEXTROSE 5%-WATER - 50 ML IVPB SCH ×3 (02:12→17:04)
[2023-04-04] MEDS: NOREPINEPHRINE 0.9 % NACL 8 MG/250 ML BAG IVPB SCH ×2 (03:13→17:23)
[2023-04-04 07:28] LABS: INR 1.19 (0.83-1.09); PROTHROMBIN TIME (PATIENT) 13.8 SEC (9.7-13.0)
[2023-04-04 07:31] LABS: ACTIVATED PTT 37.7 SECONDS (25.2-36.5)
[2023-04-04 07:40] LABS: HEMATOCRIT 22.9 % (35.4-49); HEMOGLOBIN 7.5 GM/dL (11.7-16.9); MCH 30.2 pg (25.7-33.7); MCHC 32.8 g/dl (32.0-35.9); MEAN CELL VOLUME 92.1 fl (80-96); MEAN PLT VOLUME 10.3 fl (7.5-11.1); PLATELET COUNT 66 10^3/uL (134-434); RBC 2.49 M/mm3 (4.00-5.60); RDW 17.6 % (11.9-15.9); WHITE BLOOD COUNT 15.9 K/mm3 (4.0-10.0)
[2023-04-04 07:49] LABS: HEMATOCRIT 23.4 % (35.4-49); HEMOGLOBIN 7.3 GM/dL (11.7-16.9); MCH 29.2 pg (25.7-33.7); MCHC 31.4 g/dl (32.0-35.9); MEAN CELL VOLUME 93.1 fl (80-96); MEAN PLT VOLUME 11.1 fl (7.5-11.1); PLATELET COUNT 74 10^3/uL (134-434); RBC 2.51 M/mm3 (4.00-5.60); RDW 17.6 % (11.9-15.9); WHITE BLOOD COUNT 15.3 K/mm3 (4.0-10.0)
[2023-04-04 08:44] LABS: ALBUMIN 1.2 g/dl (3.4-5.0); BLOOD UREA NITROGEN 43.3 mg/dL (7-18); CALCIUM 9.1 mg/dL (8.5-10.1); CREATININE 1.5 mg/dL (0.55-1.3); MAGNESIUM 1.8 mg/dL (1.8-2.4); PHOSPHOROUS 3.1 mg/dL (2.5-4.9); POTASSIUM 3.5 mmol/L (3.5-5.1); TOT PROT 4.5 g/dl (6.4-8.2)
[2023-04-04 09:04] LABS: ANISOCYTOSIS 1+; MACROCYTOSIS 1+
[2023-04-04] MEDS: MIDODRINE HCL 5 MG TABLET PO SCH ×3 (09:23→17:04)
[2023-04-04] MEDS: BACITRACIN ZINC 15 GM TUBE TOPICAL OINTMENT TP SCH ×2 (09:50→21:18)
[2023-04-04] MEDS: VASopressin 40 UNITS/100 ML BAG IV SCH ×2 (13:46→18:08)
[2023-04-04] MEDS: FAT EMUL/SOY/MCT/OLIV/FISH OIL 250 ML IV SCH (13:47)
[2023-04-04] MEDS: DAPTOMYCIN 300 MG in SODIUM CHLORIDE 50 ML IVPB SCH (15:11)
[2023-04-04] MEDS: AMINO ACIDS 4.25%/D5W 1,000 ML IV SCH (18:41)
[2023-04-04] MEDS: CHLORHEXIDINE GLUCONATE 4% CLEANSER FOR DECOLONIZATION TP SCH (21:18)
[2023-04-04 21:21] LABS: BASO % 0.1 % (0-2.0); EOS % 0.1 % (0-4.5); HEMATOCRIT 23.5 % (35.4-49); HEMOGLOBIN 7.3 GM/dL (11.7-16.9); LYMPH % 1.8 % (8-40); MCHC 31.3 g/dl (32.0-35.9); MEAN CELL VOLUME 92.7 fl (80-96); MEAN PLT VOLUME 10.5 fl (7.5-11.1); MONO % 3.3 % (3.8-10.2); NEUT % 94.7 % (42.8-82.8); PLATELET COUNT 58 10^3/uL (134-434); RBC 2.53 M/mm3 (4.00-5.60); RDW 18.3 % (11.9-15.9); WHITE BLOOD COUNT 15.4 K/mm3 (4.0-10.0)
[2023-04-04 21:43] LABS: ANISOCYTOSIS 2+; MACROCYTOSIS 0; TARGET CELLS 1+
[2023-04-05] MEDS: VASopressin 40 UNITS/100 ML BAG IV SCH (01:00)
[2023-04-05] MEDS: NOREPINEPHRINE 0.9 % NACL 8 MG/250 ML BAG IVPB SCH (02:18)
[2023-04-05] MEDS: PIPERACILLIN/TAZOB 2.25 GM 2.25 GM in DEXTROSE 5%-WATER - 50 ML IVPB SCH (02:18)
[2023-04-05 06:14] LABS: ARTERIAL BLD GAS O2 SATURATION 92.4 % (95-98); ARTERIAL BLOOD GAS BASE EXCESS -17.9 mmol/L (-2-2); ARTERIAL BLOOD GAS PO2 80.7 mmHg (80-100); ARTERIAL BLOOD GAS pH 7.138 (7.350-7.450)
[2023-04-05] MEDS: FAT EMUL/SOY/MCT/OLIV/FISH OIL 250 ML IV SCH (06:22)
[2023-04-05 06:25] LABS: VENT MODE ST; VENT RATE 20
[2023-04-05 06:58] VITALS: BP 76/50; PULSE 126; RESP 20; TEMP 100.1
[2023-04-05 07:17] LABS: HEMATOCRIT 18.2 % (35.4-49); MCH 29.8 pg (25.7-33.7); MCHC 30.1 g/dl (32.0-35.9); MEAN PLT VOLUME 11.3 fl (7.5-11.1); PLATELET COUNT 58 10^3/uL (134-434); RBC 1.84 M/mm3 (4.00-5.60); RDW 20.1 % (11.9-15.9); WHITE BLOOD COUNT 14.4 K/mm3 (4.0-10.0)
[2023-04-05 07:23] LABS: MEAN CELL VOLUME 99.1 fl (80-96)
[2023-04-05 07:24] LABS: INR 1.54 (0.83-1.09); PROTHROMBIN TIME (PATIENT) 17.8 SEC (9.7-13.0)
[2023-04-05 07:27] LABS: ACTIVATED PTT 48.3 SECONDS (25.2-36.5)
[2023-04-05 07:28] LABS: HEMOGLOBIN 5.5 GM/dL (11.7-16.9)
[2023-04-05 07:55] LABS: POTASSIUM 4.4 mmol/L (3.5-5.1)
[2023-04-05 08:04] LABS: CALCIUM 8.9 mg/dL (8.5-10.1)
[2023-04-05 08:05] LABS: BLOOD UREA NITROGEN 51.4 mg/dL (7-18)
[2023-04-05 08:08] LABS: CREATININE 1.9 mg/dL (0.55-1.3)
[2023-04-05 08:10] LABS: TOT PROT 4.1 g/dl (6.4-8.2)
[2023-04-05 08:22] LABS: ALBUMIN 0.9 g/dl (3.4-5.0)
[2023-04-05 11:57] LABS: ANISOCYTOSIS 0; MACROCYTOSIS 1+
== END 2023-04-05 07:02 | disposition expired | DRG 871 ==
LOC: JER 13:54 → JERBED 15:51 → UNDOADMIN 15:51 → JICU 15:51
PROVIDERS: ADMIT Internal Medicine; ATTEND Internal Medicine
PROC: 06HM33Z Insertion of Infusion Device into Right Femoral Vein, Percutaneous Approach (ICD-10-PCS; principal; 2023-03-20)
PROC: 5A1D70Z Performance of Urinary Filtration, Intermittent, Less than 6 Hours Per Day (ICD-10-PCS; 2023-03-21)
PROC: 5A1D70Z Performance of Urinary Filtration, Intermittent, Less than 6 Hours Per Day (ICD-10-PCS; 2023-03-23)
PROC: 5A1D70Z Performance of Urinary Filtration, Intermittent, Less than 6 Hours Per Day (ICD-10-PCS; 2023-03-26)
PROC: 4A133B1 Monitoring of Arterial Pressure, Peripheral, Percutaneous Approach (ICD-10-PCS; 2023-03-28)
PROC: 4A133J1 Monitoring of Arterial Pulse, Peripheral, Percutaneous Approach (ICD-10-PCS; 2023-03-28)
PROC: 5A1D70Z Performance of Urinary Filtration, Intermittent, Less than 6 Hours Per Day (ICD-10-PCS; 2023-03-28)
PROC: 30233R1 Transfusion of Nonautologous Platelets into Peripheral Vein, Percutaneous Approach (ICD-10-PCS; 2023-03-28)
PROC: 5A1D70Z Performance of Urinary Filtration, Intermittent, Less than 6 Hours Per Day (ICD-10-PCS; 2023-03-30)
PROC: 5A1D70Z Performance of Urinary Filtration, Intermittent, Less than 6 Hours Per Day (ICD-10-PCS; 2023-04-02)
PROC: 30233N1 Transfusion of Nonautologous Red Blood Cells into Peripheral Vein, Percutaneous Approach (ICD-10-PCS; 2023-04-03)
DX: A41.89 Other specified sepsis (principal); E43 Unspecified severe protein-calorie malnutrition; L89.154 Pressure ulcer of sacral region, stage 4; R65.21 Severe sepsis with septic shock; J96.01 Acute respiratory failure with hypoxia; N18.6 End stage renal disease; Z68.1 Body mass index [BMI] 19.9 or less, adult; T87.44 Infection of amputation stump, left lower extremity; I13.0 Hypertensive heart and chronic kidney disease with heart failure and stage 1 through stage 4 chronic kidney disease, or unspecified chronic kidney disease; I50.22 Chronic systolic (congestive) heart failure; E11.22 Type 2 diabetes mellitus with diabetic chronic kidney disease; R62.7 Adult failure to thrive; E78.5 Hyperlipidemia, unspecified; D69.6 Thrombocytopenia, unspecified; R79.89 Other specified abnormal findings of blood chemistry; R41.82 Altered mental status, unspecified; D64.9 Anemia, unspecified; I48.91 Unspecified atrial fibrillation; B95.2 Enterococcus as the cause of diseases classified elsewhere; B96.20 Unspecified Escherichia coli [E. coli] as the cause of diseases classified elsewhere; Z86.73 Personal history of transient ischemic attack (TIA), and cerebral infarction without residual deficits; Z89.611 Acquired absence of right leg above knee; Z89.512 Acquired absence of left leg below knee; Z86.718 Personal history of other venous thrombosis and embolism; Y83.8 Other surgical procedures as the cause of abnormal reaction of the patient, or of later complication, without mention of misadventure at the time of the procedure; Z51.5 Encounter for palliative care; Z66 Do not resuscitate
CPT/HCPCS: 0241U-QW; 36415; 36430; 36600; 70450-TC; 71045-TC-FY; 76937; 80048; 80053; 82272; 82550; 82553; 82803; 82962; 83605; 83735; 84100; 84484; 85025; 85027; 85384; 85610; 85730; 86022; 86140; 86850; 86900; 86901; 86922; 87040; 87070; 87081; 87186; 87205; 87340; 93005; 93010; 93306-TC; 94660; 99285-25; J0878; J1644; J3490; P9037; P9038; P9058; Q5106